=== PATIENT | male | born 1970 | race Caucasian/White ===

== ENCOUNTER 2021-08-30 04:19 | Emergency (ER) | payer MEDICARE, MEDICAID, SELFPAY ==
--- NOTE | ~2021-08-30 | CT_ITS ---
EXAMINATION: CT HEAD WITHOUT CONTRAST CLINICAL INFORMATION: Head injury. COMPARISON: None TECHNIQUE: Contiguous axial imaging was performed from the skull base to vertex without intravenous administration of contrast. This CT examination was performed using dose optimization techniques as appropriate, variously including the following: *Automated exposure control *Adjustment of mA and/or kV according to patient size (this includes techniques or standardized protocols for targeted exams where dose is matched to indication/reason for exam; i.e. extremities or head) *Use of iterative reconstruction technique DLP: 620 mGy-cm FINDINGS: There is no evidence of acute intracranial hemorrhage or territorial infarction. No abnormal mass effect or midline shift is seen. [place] to white matter differentiation is well preserved. No extra-axial fluid collections are identified. The ventricles are normal in size. There is no abnormal attenuation within the brain parenchyma. The osseous structures and soft tissues are normal. The mastoid air cells and visualized portions of the paranasal sinuses are well aerated. CT/CT head/brain wo con IMPRESSION: No acute intracranial pathology.
[2021-08-30 04:49] VITALS: BP 127/72; BP 140/70; PULSE 115; PULSE 90; RESP 17; TEMP 36.6; O2SAT 99; BMI 23.6
--- NOTE | 2021-08-30 05:00 | ED_ITS ---
HPI - Overdose General Chief Complaint: Overdose Stated Complaint: DRUG ABUSE Time Seen by Provider: 08/30/21 04:59 Source: patient and EMS Mode of arrival: EMS Limitations: no limitations History of Present Illness HPI Narrative: 51-year-old male came in by ambulance for evaluation of possible overdose. 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 But patient confirmed that he did not lose any consciousness, and he did not have seizure activity. when patient fell hit his mouth causing bleeding from the lower front teeth but no tongue or lip bite. Related Data Allergies Allergy/AdvReac Type Severity Reaction Status Date / Time No Known Allergies Allergy Unverified 05/12/20 14:50 Review of Systems Review of Systems: All other systems are reviewed and are negative Constitutional: Reports as per HPI and Reports no additional constitutional complaints Eyes: Reports as per HPI and Reports no additional eye complaints Reports system reviewed and no additional complaints, except as documented Cardiovascular: Reports as per HPI and Reports no additional cardiovascular complaints Respiratory: Reports as per HPI and Reports no additional respiratory complaints Gastrointestinal: Reports as per HPI and Reports no additional gastrointestinal complaints Genitourinary: Reports no additional female genitourinary complaints Musculoskeletal: Reports no additional musculoskeletal complaints Skin/Breast: Reports system reviewed and no additional complaints, except as docu Psychiatric: Reports no additional psychiatric complaints Endocrine: Reports no additional endocrine complaints Hematologic/Lymphatic: Reports no additional hematologic/lymphatic complaints Allergic/Immunologic: Reports no additional allergic/immunologic complaints Reports system reviewed and no additional complaints, except as documented and Reports Abnormal speech present [facility] Social History Social History Advance Directives: No Physical Exam Vital Signs: Vital Signs: Last Vital Signs Temp 97.8 F 08/30/21 04:49 Pulse 73 08/30/21 06:11 Resp 16 08/30/21 06:11 BP 105/55 L 08/30/21 06:11 Pulse Ox 95 08/30/21 06:11 BMI result Body Mass Index 23.6 Vital signs have been reviewed as appeared to be correct. Blood pressure normal. Heart rate normal. Respiration rate normal. Temperature normal. Oxygen saturation normal. Appearance: Alert. Oriented X3. No acute distress. Head: Normal external exam. Normocephalic. Atraumatic. No Cook signs noted. No raccoon eyes noted Eyes: PERRLA. EOMI. Conjunctiva and sclera normal. Eyelids normal. ENT: TM's Normal. Pharynx normal. Uvula midline. Moist mucous membranes. No trismus noted. No drooling noted. No muffled voice noted. Neck: Normal inspection. Neck supple. FROM. No adenopathy. Thyroid Normal. No meningeal signs. No neck mass noted. CVS: Normal heart rate and rhythm. Heart sound normal. No murmurs noted. Pulses normal throughout. Respiratory: No respiratory distress. Painless inspiration. Breath sounds normal. No wheezes/rales/rhonchi noted. Chest nontender. No accessory muscle usage noted or decreased air movement noted. Abdomen: Soft and nontender. Bowel sounds normal in all 4 quadrants. No distention noted. No organomegaly noted. No visible injury noted. Back: No CVA tenderness. Full range of motion noted. Skin: Skin warm and dry. Normal skin color. Normal skin turgor. No rashes/lesions/lacerations noted. Extremities: No lower extremity edema. Extremities exhibit normal range of motion. Extremities nontender. Neuro: Oriented X 3. Cranial nerve exam: II-XII are grossly intact No motor deficit. No sensory deficit. Reflexes normal. Course Course Course Narrative: Assessment and plan. 51-year-old male with history of IV drug abuse, patient admitted to use only cocaine, no SI/no HI. urine drug screen also was positive for fentanyl which patient is not aware of it. CT of the head is unremarkable. Patient now is awake and alert and oriented. Awaiting for the care team to talk to the patient then will discharge. MDM - Overdose Lab Data Attestation: I reviewed the patient's lab results. Labs: Lab Results 08/30/21 08/30/21 Range/Units 04:49 05:33 Urine Opiates Screen Not Detected (Not Detect) Urine Fentanyl Screen POSITIVE H (Not Detect) Ur Barbiturates Screen Not Detected (Not Detect) Ur Phencyclidine Scrn Not Detected (Not Detect) Ur Amphetamines Screen Not Detected (Not Detect) U Benzodiazepines Scrn POSITIVE H (Not Detect) Urine Cocaine Screen POSITIVE H (Not Detect) U Marijuana (THC) Screen POSITIVE H (Not Detect) COVID-19 (MALIHA) Negative (Negative) COVID-19 Clin Com See Note Imaging Data CT scan - head: Attestation: I personally reviewed and interpreted this imaging study as follows: Radiologist's impression: No acute intracranial pathology. Discharge Plan Discharge Clinical Impression: Drug overdose Instructions: Adult Overdose (ED) Referrals: Physician,Unknown J [Primary Care Provider] - 2 days
[2021-08-30 05:17] LABS: COVID-19 Test Negative (Negative)
[2021-08-30 05:54] LABS: Amphetamine Screen Urine Not Detected (Not Detect); Barbiturates, Urine Not Detected (Not Detect); Benzodiazepines Screen Urine POSITIVE (Not Detect); Cannabinoid Screen Urine POSITIVE (Not Detect); Cocaine Screen Urine POSITIVE (Not Detect); Fentanyl, urine POSITIVE (Not Detect); Opiate Screen Urine Not Detected (Not Detect); Phencyclidine Screen Urine Not Detected (Not Detect)
[2021-08-30 06:00] VITALS: RESP 16; O2SAT 96
[2021-08-30 06:11] VITALS: BP 105/55; PULSE 73; RESP 16; O2SAT 95
--- NOTE | 2021-08-30 08:43 | MHC.RECOVSUP ---
Recovery Support note: Patient is a 51 year old Taiwanese speaking male who presented to [facility] ED after an accidental overdose while using cocaine. Patient was sleeping when this marketing writer entered the room however awoke when this marketing writer spoke his name. Patient reports he was using cocaine and that he did not know there was fentanyl present. Discussed harm reduction techniques and the prevalence of fentanyl in cocaine supplies. Patient acknowledged and reports he typically uses cocaine 1-2 times a week however he plans to stop entirely after this event. Patient reports he is currently on 146mg of methadone. Patient denies alcohol or additional drug use however reports he uses marijuana occasionally. Discussed with patient how he is at a greater risk of overdose due to being on methadone and that the safest plan is to avoid street drugs entirely. Patient acknowledged. This marketing writer offered patient SUDE assessment and additional recovery resources. Patient declined stating he has access to supports through his methadone clinic. Encouraged patient to inform staff if he has additional questions or concerns. Discussed case with patient's RN and ED provider.
[2021-08-30 09:05] VITALS: BP 128/77; PULSE 77; RESP 19; O2SAT 98
== END 2021-08-30 09:08 | disposition home or self-care (01) ==
PROVIDERS: Emergency Provider Emergency Medicine
DX: T40.5X1A Poisoning by cocaine, accidental (unintentional), initial encounter (principal); F11.20 Opioid dependence, uncomplicated; Y92.9 Unspecified place or not applicable; Z20.822 Contact with and (suspected) exposure to COVID-19
CPT/HCPCS: 70450; 80307; 87635; 99284

== ENCOUNTER 2023-02-28 22:36 | Observation (INO) | payer MEDICARE, MEDICAID, SELFPAY ==
[2023-02-28 22:44] VITALS: BP 105/58; PULSE 72; RESP 18; TEMP 36.8; O2SAT 95; BMI 21.8
[2023-02-28 23:58] LABS: Alanine Aminotransferase 82 U/L (0-40); Albumin Level 3.3 g/dL (3.5-5.0); Alkaline Phosphatase 79 U/L (39-117); Anion Gap 12 (12-20); Aspartate Amino Transferase 91 U/L (5-37); Bilirubin Total 0.4 mg/dL (0.0-1.0); Blood Urea Nitrogen 12 mg/dL (9-16); Calcium 9.1 mg/dL (8.4-10.2); Carbon Dioxide 28 mmol/L (22-29); Chloride 102 mmol/L (96-108); Creatinine Clr Calc Pharmacy 97.8; Estimated Glomerular Filt Rate > 60; Glucose Random 119 mg/dL (60-115); Potassium 4.1 mmol/L (3.3-5.1); Sodium 138 mmol/L (135-145); Total Protein 7.3 g/dL (6.5-8.0)
[2023-03-01] VITALS (12 sets, daily range): BP systolic 88–120; BP diastolic 43–58; PULSE 44–69; RESP 12–20; TEMP 36.3–37.3; O2SAT 94–100
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
--- NOTE | 2023-03-01 01:17 | PC.NURSE ---
Pt medicated per oct. teofilo.
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
--- NOTE | 2023-03-01 03:37 | PC.NURSE ---
Pt resting comfortably. Pt medicated per oct. wctm.
[2023-03-01 04:50] LABS: MANUAL DIFF FLAG NO
[2023-03-01 04:53] LABS: Basophils Absolute Auto 0.1 X10*3/uL (0.0-0.2); Basophils Percent Auto 0.8 % (0-2); Eosinophils Absolute Auto 0.3 X10*3/uL (0.0-0.4); Eosinophils Percent Auto 5.1 % (0-4); Hematocrit 36.2 % (42.0-52.0); Hemoglobin 11.8 g/dl (14.0-18.0); Imm Gran Abs Auto 0.02 X10*3/uL (0.00-0.03); Imm Gran Pct Auto 0.3 % (0.0-0.4); Lymphocytes Percent Auto 16.7 % (20-40); Mean Corpuscular HGB Conc 32.6 g/dl (31.0-36.0); Mean Corpuscular Hemoglobin 30.3 pg (27.0-33.0); Mean Corpuscular Volume 92.8 fL (80.0-98.0); Mean Platelet Volume 10.3 fL (9.4-12.4); Monocytes Absolute Auto 0.7 X10*3/uL (0.1-1.2); Monocytes Percent Auto 12.5 % (2-11); Neutrophils Absolute Auto 3.8 x10*3/uL (2.0-8.3); Neutrophils Percent Auto 64.6 % (45-73); Platelet Count 184 X10*3/uL (160-400); White Blood Count 5.9 X10*3/uL (4.8-10.8)
[2023-03-01 05:19] LABS: Anion Gap 13 (12-20); Blood Urea Nitrogen 9 mg/dL (9-16); Calcium 7.9 mg/dL (8.4-10.2); Carbon Dioxide 20 mmol/L (22-29); Chloride 109 mmol/L (96-108); Creatinine Clr Calc Pharmacy 123.4; Estimated Glomerular Filt Rate > 60; Glucose Random 82 mg/dL (60-115); Potassium 3.7 mmol/L (3.3-5.1); Sodium 138 mmol/L (135-145)
--- NOTE | 2023-03-01 07:40 | MHC.EDTECH ---
EKG Done 724. Za Schmid RN sent a photo to Hospitalist [employer]
--- NOTE | 2023-03-01 07:44 | PHA.PROG ---
Admission Date/Time: March 01, 2023 02:24 Indication: Cellulitis/Abcess, IVDU Weight in k.9 kg Adjusted body weight in K kg [place] body weight in Kg: Obesity Dosing Indication % IBW: Serum Creatinine - Last 168 Hours 02/28/23 03/01/23 23:28 04:45 Creatinine 0.82 0.65 Estimated CrCl and GFR - Last 168 Hours 02/28/23 03/01/23 23:28 04:45 Estim Creat Clear Calc 97.8 123.4 Estimated GFR > 60 > 60 Vancomycin Loading Dose: 1500 mg Current Vancomycin Dosing Regimen: 1250 mg Q12H Date and Time for next Vancomycin Level to be drawn: 03/02 @ 1400 Pharmacist Comments on Vancomycin Plan: Patient receive load dose in the ER on 03/01 @ 0336. Maintenance dose vancomycin 1250 mg Q12H is scheduled to start 03/01 @ 1600. Expected AUC is 544 with a trough of 15.6 Level is scheduled for prior to the 4th dose Pharmacy will monitor renal function daily. Reva Soto, JoannD Vancomycin dosing will take advantage of [employer] as a clinical decision support tool that uses Bayesian modeling to calculate individual patient's pharmacokinetic parameters and forecast the patient's drug concentration time course with the target goal AUC 24 range of 400 - 600 mg/L/hr.
--- NOTE | 2023-03-01 07:46 | PC.NURSE ---
Provider notified due to bradycardia/low BP. EKG order/Straight cath order for urine. EKG complete, sent to provider - Urine obtained. IVMF running at 125ml/hr. Pt A&Ox4, VSS. RR even and unlabored bilaterally on RA.
--- NOTE | 2023-03-01 07:57 | PHA.MEDREC ---
Pharmacy Consult ? Medication Reconciliation Pharmacy has completed the medication reconciliation.
--- NOTE | 2023-03-01 08:39 | MHC.CM.PN ---
Attempted to meet with patient in regards to discharge planning. Tried calling patient's name multiple times. Patient currently sleeping. No family present. Will attempt to meet again. Continue to monitor for d/c needs.
--- NOTE | 2023-03-01 09:54 | MHC.RECOVRN ---
This short story writer met with patient after receiving addiction consult. Pt resting comfortably, awake to verbal command. This short story writer reviewed Addiction/Recovery role, able to order medications to help manage withdrawal and comfort. Pt verbalized understanding. Pt states no withdrawal at this time, Addiction/Recovery to check back in with pt.
--- NOTE | 2023-03-01 09:55 | HE.PHANOTE ---
Re: methadone verification last dose 63 mg given 02/28/23 @0748 at [facility] verified by Za Duval RN
--- NOTE | 2023-03-01 10:39 | PM.EVENT ---
Event Note Date of Service: 03/01/23 Event Note: 52 yo male with Right thumb abscess -Keep NPO -plan to take to OR this afternoon for I&D with Dr hester -formal consult note to follow Time Spent With Patient Time: Total time managing care of this patient today ____ minutes.
--- NOTE | 2023-03-01 10:58 | PC.NURSE ---
assumed care of pt when he arrived at ED Overflow, 1050am. Pt jonel to 43, Provider aware of low HR. Bolus of NS running, almost finished, BP 104/43. NS 125ml/hr also infusing. Pt resting, reporting 8/10 pain in hand. Right thumb is red, hand is swollen.
--- NOTE | 2023-03-01 12:01 | PC.NURSE ---
orthopedics met with pt. Plan is to go to OR at approx 33:15.
--- NOTE | 2023-03-01 12:13 | PM.CNOR ---
History of Present Illness HPI Consult date: 03/01/23 Chief complaint: Thumb swelling Narrative: 52 yo male who presented to the ED with worsening Right thumb pain and swelling x 2 days. He states he wacked his thumb on the side of his metal mobile home. He denies injury prior to that. He denies IVDU into the hand or thumb. Last use of heroin/cocaine was prior to arrival. While in the ED, CT scan was obtained which was significant for abscess of the thumb. He was admitted to the medical service and orthopedics was consulted for further recommendations. Review of Systems Review of Systems: per [facility] Past Medical History Medical History (Updated 03/01/23 @ 02:37 by Dorothy Gilman MD) Drug use disorder Social History Social History Patient Tobacco Use Status: Current someday Tobacco user Smoked in Last 30 Days: Yes Use of substances other than those prescribed or required for medical reasons: No Advance Directives: No Advance Directives Information Provided: Yes Meds Allergies Allergy/AdvReac Type Severity Reaction Status Date / Time No Known Allergies Allergy Verified 02/28/23 22:43 Active Medications: Current Medications Acetaminophen (Acetaminophen 325 Mg Tablet) 650 mg PO Q6H PRN PRN Reason: Pain, Mild (Pain Scale 1-3) Vancomycin HCl 1,250 mg/ (Sodium Chloride) 250 mls @ 166.667 mls/hr IV Q12H [facility] Sodium Chloride (Ns) 1,000 mls @ 125 mls/hr IVCONT .Q8H [facility] Last Admin: 03/01/23 07:38 Dose: 125 mls/hr Melatonin (Melatonin 3 Mg Tablet) 6 mg PO BEDTIME PRN PRN Reason: Insomnia Ondansetron HCl (Ondansetron Hcl 4 Mg/2 Ml Vial) 4 mg IVPUSH Q8H PRN PRN Reason: Nausea and Vomiting Oxycodone HCl (Oxycodone Hcl Immed Release 5 Mg Tablet) 5 mg PO Q4H PRN PRN Reason: Pain, Moderate(Pain Scale 4-6) Pharmacy Consult (Consult Rx Vancomycin Dosing) 1 each MISCELLANE DAILY PRN PRN Reason: Consult order Pharmacy Consult (Consult Rx Perform Med Rec) 1 each MISCELLANE ONCE PRN PRN Reason: Consult order Pharmacy Consult (Consult Rx Perform Med Rec) 1 each MISCELLANE ONCE PRN PRN Reason: Consult order Sodium Chloride (0.9 % Sodium Chloride Flush 3 Ml Syringe) 3 ml IVFLUSH QSHIFT [facility] Last Admin: 03/01/23 07:38 Dose: 3 ml Home Medications Medication Instructions Recorded Confirmed Last Taken Type methadone 10 mg/mL oral 63 mg PO DAILY 03/01/23 03/01/23 02/28/23 07:48 History concentrate (Methadone Intensol) Physical Exam Vital Signs: Vital Signs: Last Vital Signs Temp 98.1 F 03/01/23 10:57 Pulse 44 L 03/01/23 10:57 Resp 16 03/01/23 10:57 BP 104/43 L 03/01/23 10:57 Pulse Ox 97 03/01/23 10:57 O2 Del Method Room Air 03/01/23 10:57 BMI result Body Mass Index 21.8 Const: General: cooperative and no acute distress Orientation/consciousness: patient oriented x3 Resp: Effort & Inspection: normal respiratory effort and able to speak in complete sentences Cardio: Peripheral pulses: Peripheral pulses 2+ throughout Neuro: General: patient oriented x3 Extrem: Other: Right tumb ulceration type abscess over the MCP jonit of the thumb. He is able to activate flexion and extension but has significant discomfort. No pain or swelling along the palmar aspect or in the thenar space. No pain with CMC compression. Results Labs 03/01/23 04:45 03/01/23 04:45 Labs: Abnormal lab results 02/28/23 02/28/23 03/01/23 Range/Units 23:28 23:28 04:45 RBC 4.09 L 3.90 L (4.60-5.80) X10*6/uL Hgb 12.2 L 11.8 L (14.0-18.0) g/dl Hct 36.2 L 36.2 L (42.0-52.0) % MPV 8.9 L (9.4-12.4) fL Lymph % (Auto) 16.8 L 16.7 L (20-40) % [place] % (Auto) 13.4 H 12.5 H (2-11) % Eos % (Auto) 6.1 H 5.1 H (0-4) % Lymph # (Auto) 1.0 L (1.2-4.9) X10*3/uL Eos # (Auto) 0.5 H (0.0-0.4) X10*3/uL Chloride (96-108) mmol/L Carbon Dioxide (22-29) mmol/L Random Glucose 119 H (60-115) mg/dL Calcium (8.4-10.2) mg/dL AST 91 H (5-37) U/L ALT 82 H (0-40) U/L Albumin 3.3 L (3.5-5.0) g/dL Urine Opiates Screen (Not Detect) Urine Fentanyl Screen (Not Detect) U Benzodiazepines Scrn (Not Detect) Urine Cocaine Screen (Not Detect) U Marijuana (THC) Screen (Not Detect) 03/01/23 03/01/23 Range/Units 04:45 07:35 RBC (4.60-5.80) X10*6/uL Hgb (14.0-18.0) g/dl Hct (42.0-52.0) % MPV (9.4-12.4) fL Lymph % (Auto) (20-40) % [place] % (Auto) (2-11) % Eos % (Auto) (0-4) % Lymph # (Auto) (1.2-4.9) X10*3/uL Eos # (Auto) (0.0-0.4) X10*3/uL Chloride 109 H (96-108) mmol/L Carbon Dioxide 20 L (22-29) mmol/L Random Glucose (60-115) mg/dL Calcium 7.9 L D (8.4-10.2) mg/dL AST (5-37) U/L ALT (0-40) U/L Albumin (3.5-5.0) g/dL Urine Opiates Screen POSITIVE H (Not Detect) Urine Fentanyl Screen POSITIVE H (Not Detect) U Benzodiazepines Scrn POSITIVE H (Not Detect) Urine Cocaine Screen POSITIVE H (Not Detect) U Marijuana (THC) Screen POSITIVE H (Not Detect) H & H 02/28/23 03/01/23 Range/Units 23:28 04:45 Hgb 12.2 L 11.8 L (14.0-18.0) g/dl Hct 36.2 L 36.2 L (42.0-52.0) % All other labs normal. Diagnostic results Wrist/Hand CT: report reviewed (CT hand RT w IV con IMPRESSION: * There is a 2.2 x 1.9 x 1.9 cm abscess lateral to the distal first metacarpal extending into the first metacarpophalangeal joint. This is concerning for septic arthritis. * No CT evidence of osteomyelitis at this time. * The extensor pollicis longus and brevis ten) and image reviewed Assessment and Plan (1) Cellulitis of right thumb: Status: Acute (2) Abscess of right thumb: Status: Acute Plan Case was Discussed with Dr Grewal and the extent of the injury was explained to the patient today. The recommendation is to take him to the OR for I&D right thumb. He did test positive for Cocaine while in the ED, so we will have to determine if this can be done under local or post pone the case until he does not test positive for cocaine so we can proceed under general anesthesia. I did explain the risk, benefits and alternative of the procedure to the patient. Risk including cardiac complications with cocaine and general anesthesia, risk of ongoing infection, pain, stiffness , nerve or tissue/tendon injury. He does understand all this and would like to proceed with I&D RIght thumb accordingly . Time Spent With Patient Time: Total time managing care of this patient today ____ minutes. Procedures Date of Service Date of Service: 03/01/23
--- NOTE | 2023-03-01 13:10 | PC.NURSE ---
report given to short stay, pt resting, no distress noted, vitals remain consistent- pressure soft, pt jonel in mid 40s. NS cont to infuse 125ml/hr
--- NOTE | 2023-03-01 14:21 | HO.PM.IMPN ---
Subjective Subjective Date of Service: 03/01/23 Interval History: seen and examined this morning follow up for right hand infection denies sob, palpitations, chest pain, sob, dizziness reporting right hand pain, denies fever Review of Systems Review of Systems: Yes all other systems are reviewed and are negative Constitutional Constitutional: Denies chills and Denies fever(s) ENT Ears, Nose, Mouth, and Throat: Denies dizziness Cardiovascular Cardiovascular: Denies chest pain, Denies palpitations and Denies dyspnea Respiratory Respiratory: Denies cough and Denies dyspnea Gastrointestinal Gastrointestinal: Denies abdominal pain, Denies nausea and Denies vomiting Neurologic Neurologic: Denies dizziness Endocrine Endocrine: Denies palpitations Physical Exam Vital Signs: Vital Signs: Last Vital Signs Temp 98 F 03/01/23 13:08 Pulse 46 L 03/01/23 13:08 Resp 15 03/01/23 13:08 BP 96/55 L 03/01/23 13:08 Pulse Ox 98 03/01/23 13:08 O2 Del Method Room Air 03/01/23 13:08 BMI result Body Mass Index 21.8 Const: General: cooperative, comfortable, no acute distress, alert and awake Nutritional Appearance: thin Orientation/consciousness: patient oriented x3 Resp: Effort & Inspection: normal respiratory effort, able to speak in complete sentences, no respiratory distress and no use of accessory muscles Auscultation: clear to auscultation bilaterally Cardio: Rate: bradycardic Heart sounds: S1 normal heart sound present and S2 normal heart sound present GI: Inspection: No distended Palpation (GI): Soft to palpation and nontender Skin: Other: right thumb, warm, tender to palpation, limited ROM Neuro: General: patient oriented x3, moves all extremities and CN's II-XI intact bilaterally Extrem: General: Yes no pedal edema Objective Data Active Medications Acetaminophen (Acetaminophen 325 Mg Tablet) 650 mg PO Q6H PRN PRN Reason: Pain, Mild (Pain Scale 1-3) Vancomycin HCl 1,250 mg/ (Sodium Chloride) 250 mls @ 166.667 mls/hr IV Q12H [facility] Sodium Chloride (Ns) 1,000 mls @ 125 mls/hr IVCONT .Q8H [facility] Last Admin: 03/01/23 07:38 Dose: 125 mls/hr Documented By: CHNUG Melatonin (Melatonin 3 Mg Tablet) 6 mg PO BEDTIME PRN PRN Reason: Insomnia Ondansetron HCl (Ondansetron Hcl 4 Mg/2 Ml Vial) 4 mg IVPUSH Q8H PRN PRN Reason: Nausea and Vomiting Oxycodone HCl (Oxycodone Hcl Immed Release 5 Mg Tablet) 5 mg PO Q4H PRN PRN Reason: Pain, Moderate(Pain Scale 4-6) Pharmacy Consult (Consult Rx Vancomycin Dosing) 1 each MISCELLANE DAILY PRN PRN Reason: Consult order Pharmacy Consult (Consult Rx Perform Med Rec) 1 each MISCELLANE ONCE PRN PRN Reason: Consult order Pharmacy Consult (Consult Rx Perform Med Rec) 1 each MISCELLANE ONCE PRN PRN Reason: Consult order Sodium Chloride (0.9 % Sodium Chloride Flush 3 Ml Syringe) 3 ml IVFLUSH QSHIFT [facility] Last Admin: 03/01/23 14:16 Dose: Not Given Documented By: CHELITA Non-Admin Reason: See Note Labs 03/01/23 04:45 03/01/23 04:45 Labs: Laboratory Results - last 24 hr 02/28/23 02/28/23 03/01/23 23:28 23:28 00:42 MCV 88.5 MCH 29.8 MCHC 33.7 RDW 12.6 Plt Count 238 MPV 8.9 L Immature Gran % (Auto) 0.4 Neut % (Auto) 62.6 Lymph % (Auto) 16.8 L [place] % (Auto) 13.4 H Eos % (Auto) 6.1 H Baso % (Auto) 0.7 Lymph # (Auto) 1.4 [place] # (Auto) 1.1 Eos # (Auto) 0.5 H Baso # (Auto) 0.1 Abs Immat Gran (auto) 0.03 Absolute Neuts (auto) 5.1 Absolute Nucleated RBC 0.000 Nucleated RBC % (auto) 0.0 Anion Gap 12 Estim Creat Clear Calc 97.8 Estimated GFR > 60 Random Glucose 119 H Lactic Acid 1.7 Calcium 9.1 Total Bilirubin 0.4 AST 91 H ALT 82 H Alkaline Phosphatase 79 Total Protein 7.3 Albumin 3.3 L Urine Opiates Screen Urine Fentanyl Screen Ur Barbiturates Screen Ur Phencyclidine Scrn Ur Amphetamines Screen U Benzodiazepines Scrn Urine Cocaine Screen U Marijuana (THC) Screen 03/01/23 03/01/23 03/01/23 04:45 04:45 07:35 MCV 92.8 MCH 30.3 MCHC 32.6 RDW 13.0 Plt Count 184 MPV 10.3 Immature Gran % (Auto) 0.3 Neut % (Auto) 64.6 Lymph % (Auto) 16.7 L [place] % (Auto) 12.5 H Eos % (Auto) 5.1 H Baso % (Auto) 0.8 Lymph # (Auto) 1.0 L [place] # (Auto) 0.7 Eos # (Auto) 0.3 Baso # (Auto) 0.1 Abs Immat Gran (auto) 0.02 Absolute Neuts (auto) 3.8 Absolute Nucleated RBC 0.000 Nucleated RBC % (auto) 0.0 Anion Gap 13 Estim Creat Clear Calc 123.4 Estimated GFR > 60 Random Glucose 82 Lactic Acid Calcium 7.9 L D Total Bilirubin AST ALT Alkaline Phosphatase Total Protein Albumin Urine Opiates Screen POSITIVE H Urine Fentanyl Screen POSITIVE H Ur Barbiturates Screen Not Detected Ur Phencyclidine Scrn Not Detected Ur Amphetamines Screen Not Detected U Benzodiazepines Scrn POSITIVE H Urine Cocaine Screen POSITIVE H U Marijuana (THC) Screen POSITIVE H Assessment and Plan (1) Abscess of right thumb: Status: Acute Plan This is a 52-year-old male with history of IV drug use disorder presents to the emergency department evaluation of thumb pain and swelling. Septic arthritis/abscess of right thumb does not meet sirs criteria. LA wnl at 1.7 continue IV vancomycin seen by ortho - plan to go to OR today for I&D/washout blood cultures pending pain control Polysubstance abuse Tox screen positive for opiates, fentanyl, benzos, cocaine, marijuana not displaying anything withdrawal symptoms at this time addiction medicine consult hold methadone for bradycardia Bradycardia HR in 40s EKG sinus jonel may be secondary to methadone, not on any other rate lowering medication asymptomatic monitor on telemetry Hypotension does not meet sirs criteria continue IVF monitor BP closely elevated LFTs, mild no abdominal pain trend LFTs normocytic anemia H/H stable and above transfusion threshold follow CBC DVT prophylaxis: SCDs, consider chemoprophylaxis after surgery Full code attending - dr. yeh patient requires ongoing inpatient stay for IV abx, close monitoring of blood pressure Time Spent With Patient Time: Total time managing care of this patient today ____ minutes. Quality Stroke Does the patient have a stroke diagnosis?: No VTE Prior VTE?: No VTE Risk Level:: Medical - moderate - high VTE Device Contraindication: N/A - Device Ordered VTE Drug Contraindication: Treatment Not Indicated
--- NOTE | 2023-03-01 15:21 | PC.NURSE ---
1st bag of NS @125ml/hr still infusing, approx 300ml remain. Will let it cont to run and not hang second bag (ordered for 3:15). Will call pharm to retime once ready to hang second liter
--- NOTE | 2023-03-01 15:43 | PC.NURSE ---
pt picked up by recyclable materials sorter
--- NOTE | 2023-03-01 16:35 | MHC.SHP ---
Pre-Procedural Eval Section A Date of Service: 03/01/23 The patient is an INPATIENT: Yes Changes since office visit: No Cold of Flu in the past 2 weeks, No New Medical Problems, No Changes in Medication and No Patient answered all questions The History & Physical has been completed within 30 days and I have reviewed it.: Yes Section B Chief Complaint: Thumb swelling infection Allergies: Allergies Allergy/AdvReac Type Severity Reaction Status Date / Time No Known Allergies Allergy Verified 02/28/23 22:43 Plan I have reviewed the history and physical and performed a pertinent physical examination on my patient. No changes have occurred unless specified. Time Spent With Patient Time: Total time managing care of this patient today ____ minutes.
--- NOTE | 2023-03-01 16:36 | W.PM.OPN ---
Operative Note Operative Note Date of Service: 03/01/23 Narrative: Operative Note Preop diagnosis: 1. Right dorsal hand infection Postop diagnosis: same Procedure: 1. I and D right dorsal hand infection Surgeon: Gayle Grewal MD Anesthesia: Superficial radial nerve block at the wrist using 1% lidocaine with epinephrine Findings: Copious creamy purulent drainage within abscess over right thumb MCP joint. EBL: Less than 5 mL Tourniquet time: None Specimens: Cultures from abscess Drains: Iodoform drains x2 Complications: None Disposition: Brought to recovery room in stable condition Plan: Admitted back to floor. Continue IV antibiotics Check cultures and adjust antibiotics accordingly Pull drain and dressing change tomorrow Consider dropping a card at the OR for repeat I and D Saturday if not exhibiting sufficient improvement Indications: The patient is 52 years old, with an abscess over the dorsal aspect of his right thumb MCP joint in a patient with an IV drug use history . The risks and benefits of operative treatment including but not limited to risk of damage to blood vessels, nerves, tendons, infection, persistent pain, persistent symptoms, recurrence or possible need for additional surgery were discussed with the patient and the patient wishes to proceed with surgery. Procedure: Once consent was obtained a regional block of the superficial radial nerve at the wrist was performed in the preop area using a combination of 1% lidocaine with epinephrine. The patient was then brought back to the operating suite and placed on the operative table in supine position. A tourniquet was applied to the proximal aspect of the right upper extremity and the limb was prepped and draped in a standard surgical fashion. Once assured that we had a good block, I made a 2.5 cm longitudinal incision over the apex of the abscess which was over the dorsal aspect of the right thumb MCP joint. The incision was made through the skin to the subcutaneous tissues. We then had copious creamy purulent drainage. I took cultures of this drainage. I used tenotomy scissors to open down into the abscess cavity which went freely almost to the dorsal aspect of the IP joint distally and almost to the CMC joint proximally. This was then copiously irrigated with normal saline. He did still have some tenderness to squeezing of the inflamed tissues, but our superficial radial nerve block appeared to work well for the incision. He tolerated this well. I also checked his thumb with axial loading and he had no pain with axial loading specifically of the MCP joint. I therefore think it is unlikely that he had a septic MCP joint. This abscess is likely within the subcutaneous tissues. Once satisfied with our I and D the wound was again copiously irrigated with normal saline and hemostasis was obtained with a brief period of local pressure. I placed 2 x quarter-inch strips of iodoform gauze into the abscess cavity to facilitate drainage. A sterile dressing was applied. The patient appears to have tolerated the procedure well and with no complications. All digits were well vascularized at the conclusion of the case.
--- NOTE | 2023-03-01 17:14 | PM.EVENT ---
Event Note Date of Service: 03/01/23 Event Note: Addiction consult placed for patient with [facility] Chart reviewed Seen by grain sacker earlier in the day, denied any symptoms of withdrawal and appeared comfortable. Methadone verified at 63mg QD with last dose administered 02/28/23. Dose held today secondary to bradycardia. Discussed with hospitalist--plan for oxycodone grain sacker to check in over the weekend. Time Spent With Patient Time: Total time managing care of this patient today ____ minutes.
[2023-03-02 03:39] VITALS: BP 102/62; PULSE 55; RESP 18; TEMP 36.6; O2SAT 96
[2023-03-02 05:53] LABS: MANUAL DIFF FLAG NO
[2023-03-02 06:01] LABS: Basophils Absolute Auto 0.1 X10*3/uL (0.0-0.2); Eosinophils Absolute Auto 0.5 X10*3/uL (0.0-0.4); Eosinophils Percent Auto 6.7 % (0-4); Hematocrit 36.7 % (42.0-52.0); Hemoglobin 11.9 g/dl (14.0-18.0); Imm Gran Abs Auto 0.03 X10*3/uL (0.00-0.03); Imm Gran Pct Auto 0.4 % (0.0-0.4); Lymphocytes Absolute Auto 1.5 X10*3/uL (1.2-4.9); Lymphocytes Percent Auto 22.1 % (20-40); Mean Corpuscular HGB Conc 32.4 g/dl (31.0-36.0); Mean Corpuscular Hemoglobin 29.3 pg (27.0-33.0); Mean Corpuscular Volume 90.4 fL (80.0-98.0); Mean Platelet Volume 9.6 fL (9.4-12.4); Monocytes Percent Auto 15.1 % (2-11); Neutrophils Absolute Auto 3.7 x10*3/uL (2.0-8.3); Neutrophils Percent Auto 54.7 % (45-73); Platelet Count 219 X10*3/uL (160-400); Red Blood Count 4.06 X10*6/uL (4.60-5.80); Red Cell Distribution Width 13.2 % (11.0-16.0); White Blood Count 6.8 X10*3/uL (4.8-10.8)
[2023-03-02 06:23] LABS: Alanine Aminotransferase 62 U/L (0-40); Albumin Level 2.5 g/dL (3.5-5.0); Alkaline Phosphatase 72 U/L (39-117); Anion Gap 10 (12-20); Aspartate Amino Transferase 77 U/L (5-37); Bilirubin Direct < 0.2 mg/dL (0.0-0.5); Bilirubin Total 0.2 mg/dL (0.0-1.0); Blood Urea Nitrogen 6 mg/dL (9-16); Calcium 8.6 mg/dL (8.4-10.2); Carbon Dioxide 25 mmol/L (22-29); Chloride 110 mmol/L (96-108); Creatinine Clr Calc Pharmacy 125.3; Estimated Glomerular Filt Rate > 60; Glucose Random 89 mg/dL (60-115); Sodium 141 mmol/L (135-145); Total Protein 5.7 g/dL (6.5-8.0)
[2023-03-02 07:28] VITALS: BP 124/66; PULSE 55; RESP 18; TEMP 36.7; O2SAT 97
--- NOTE | 2023-03-02 10:23 | PM.PNORT ---
Subjective Subjective Date of Service: 03/02/23 Interval history: POD 1 s/p I&D right thumb no overnight events resting in bed, no concerns Physical Exam Vital Signs: Vital Signs: Last Vital Signs Temp 98.1 F 03/02/23 07:28 Pulse 55 03/02/23 07:28 Resp 18 03/02/23 07:28 BP 124/66 03/02/23 07:28 Pulse Ox 97 03/02/23 07:28 O2 Del Method Room Air 03/02/23 07:28 BMI result Body Mass Index 21.8 Const: General: cooperative and no acute distress Orientation/consciousness: patient oriented x3 Resp: Effort & Inspection: normal respiratory effort and able to speak in complete sentences Cardio: Peripheral pulses: Peripheral pulses 2+ throughout Neuro: General: patient oriented x3 Extrem: Other: Right tumb incision over the MCP jonit of the thumb without drainage. He is able to activate flexion and extension but has significant discomfort. No pain or swelling along the palmar aspect or in the thenar space. No pain with CMC compression. Procedures Date of Service Date of Service: 03/02/23 Progress Note: A&P Assessment and plan (1) Abscess of right thumb: Status: Acute Assessment and Plan: Iodoform packing pulled and incision was re-dressed with xeroform and gauze continue IV abx-pending cultures dispo pending final cultures (2) Cellulitis of right thumb: Status: Acute Time Spent With Patient Time: Total time managing care of this patient today ____ minutes. Quality Stroke Does the patient have a stroke diagnosis?: No VTE Prior VTE?: No VTE Risk Level:: Medical - moderate - high VTE Device Contraindication: N/A - Device Ordered VTE Drug Contraindication: Treatment Not Indicated
--- NOTE | 2023-03-02 11:11 | HO.PM.IMPN ---
Subjective Subjective Date of Service: 03/02/23 Interval History: seen and examined this morning follow up for right hand infection denies sob, palpitations, chest pain, sob, dizziness reporting right hand pain, denies fever Review of Systems Review of Systems: Yes all other systems are reviewed and are negative Constitutional Constitutional: Denies chills and Denies fever(s) ENT Ears, Nose, Mouth, and Throat: Denies dizziness Cardiovascular Cardiovascular: Denies chest pain, Denies palpitations and Denies dyspnea Respiratory Respiratory: Denies cough and Denies dyspnea Gastrointestinal Gastrointestinal: Denies abdominal pain, Denies nausea and Denies vomiting Neurologic Neurologic: Denies dizziness Endocrine Endocrine: Denies palpitations Physical Exam Vital Signs: Vital Signs: Last Vital Signs Temp 98.1 F 03/02/23 07:28 Pulse 55 03/02/23 07:28 Resp 18 03/02/23 07:28 BP 124/66 03/02/23 07:28 Pulse Ox 97 03/02/23 07:28 O2 Del Method Room Air 03/02/23 07:28 BMI result Body Mass Index 21.8 Appearing in no acute distress lung sounds are clear to auscultation heart regular rate rhythm, clear S1, S2 positive bowel sounds, abdomen is soft, nontender neuro patient is alert x3, no focal deficits Hand dressing intact, edema noted to fingers Objective Data Active Medications Acetaminophen (Acetaminophen 325 Mg Tablet) 650 mg PO Q6H PRN PRN Reason: Pain, Mild (Pain Scale 1-3) Vancomycin HCl 1,250 mg/ (Sodium Chloride) 250 mls @ 166.667 mls/hr IV Q12H [facility] Last Infusion: 03/02/23 05:00 Dose: 0 mls/hr Documented By: OPAL Sodium Chloride (Ns) 1,000 mls @ 125 mls/hr IVCONT .Q8H [facility] Last Admin: 03/02/23 10:40 Dose: 125 mls/hr Documented By: SALTY Melatonin (Melatonin 3 Mg Tablet) 6 mg PO BEDTIME PRN PRN Reason: Insomnia Methadone HCl (Methadone Hcl 20 Mg/2 Ml Oral.Conc) 63 mg PO DAILY [facility] Last Admin: 03/02/23 08:18 Dose: 63 mg Documented By: SALTY Ondansetron HCl (Ondansetron Hcl 4 Mg/2 Ml Vial) 4 mg IVPUSH Q8H PRN PRN Reason: Nausea and Vomiting Oxycodone HCl (Oxycodone Hcl Immed Release 5 Mg Tablet) 5 mg PO Q4H PRN PRN Reason: Pain, Moderate(Pain Scale 4-6) Pharmacy Consult (Consult Rx Vancomycin Dosing) 1 each MISCELLANE DAILY PRN PRN Reason: Consult order Pharmacy Consult (Consult Rx Perform Med Rec) 1 each MISCELLANE ONCE PRN PRN Reason: Consult order Pharmacy Consult (Consult Rx Perform Med Rec) 1 each MISCELLANE ONCE PRN PRN Reason: Consult order Sodium Chloride (0.9 % Sodium Chloride Flush 3 Ml Syringe) 3 ml IVFLUSH QSHIFT [facility] Last Admin: 03/02/23 07:39 Dose: Not Given Documented By: SALTY Non-Admin Reason: IV Running Labs 03/02/23 05:31 03/02/23 05:31 Labs: Laboratory Results - last 24 hr 03/02/23 03/02/23 05:31 05:31 MCV 90.4 MCH 29.3 MCHC 32.4 RDW 13.2 Plt Count 219 MPV 9.6 Immature Gran % (Auto) 0.4 Neut % (Auto) 54.7 Lymph % (Auto) 22.1 [place] % (Auto) 15.1 H Eos % (Auto) 6.7 H Baso % (Auto) 1.0 Lymph # (Auto) 1.5 [place] # (Auto) 1.0 Eos # (Auto) 0.5 H Baso # (Auto) 0.1 Abs Immat Gran (auto) 0.03 Absolute Neuts (auto) 3.7 Absolute Nucleated RBC 0.000 Nucleated RBC % (auto) 0.0 Anion Gap 10 L Estim Creat Clear Calc 125.3 Estimated GFR > 60 Random Glucose 89 Calcium 8.6 D Total Bilirubin 0.2 Direct Bilirubin < 0.2 AST 77 H ALT 62 H Alkaline Phosphatase 72 Total Protein 5.7 L Albumin 2.5 L Microbiology Microbiology Results: Microbiology 03/01/23 Unknown Gram Stain - Final Thumb Right - Abscess Routine Culture - Preliminary Staphylococcus aureus 03/01/23 01:03 Blood Culture - Preliminary Blood - Venous No growth after 24 hours. 03/01/23 00:42 Blood Culture - Preliminary Blood - Venous No growth after 24 hours. Assessment and Plan (1) Abscess of right thumb: Status: Acute Plan This is a 52-year-old male with history of IV drug use disorder presents to the emergency department evaluation of thumb pain and swelling. Septic arthritis/abscess of right thumb does not meet sirs criteria. continue IV vancomycin seen by ortho>s/p I&D/washout 03/01/23 blood cultures neg after 24 hrs thumb cx staph aureus pain control Polysubstance abuse Tox screen positive for opiates, fentanyl, benzos, cocaine, marijuana not displaying anything withdrawal symptoms at this time addiction medicine consult>oxycodone hold methadone for bradycardia Bradycardia HR in 40s EKG sinus jonel may be secondary to methadone, not on any other rate lowering medication asymptomatic monitor on telemetry Hypotension. Resolved does not meet sirs criteria continue IVF monitor BP closely elevated LFTs, mild no abdominal pain trend LFTs normocytic anemia H/H stable and above transfusion threshold follow CBC DVT prophylaxis: SCDs, consider chemoprophylaxis after surgery Full code attending Dr. loyola patient requires ongoing inpatient stay for IV abx, close monitoring of blood pressure Time Spent With Patient Time: Total time managing care of this patient today ____ minutes. Quality Stroke Does the patient have a stroke diagnosis?: No VTE Prior VTE?: No VTE Risk Level:: Medical - moderate - high VTE Device Contraindication: N/A - Device Ordered VTE Drug Contraindication: Treatment Not Indicated
--- NOTE | 2023-03-02 11:11 | MHC.CM.PN ---
met with pt who is from home where he loves with his s/o ,he has his own ride home ,goes to [facility] for his methadone has own ride home
--- NOTE | 2023-03-02 12:06 | MHC.RECOVRN ---
Met with pt to follow up. Pt comfortable with 63 mg methadone, denies withdrawal symptoms. Pt reports 5/10 pain in thumb and is requesting pain medication. Pt denies other questions or concerns for t/w. RN aware.
--- NOTE | 2023-03-02 14:26 | HE.PHANOTE ---
vancomycin addendum vanco level came back at 11.7, increased frequency to 1250 mg q 8 hours, will recheck level nathan
[2023-03-02 14:59] VITALS: BP 108/57; PULSE 55; RESP 20; TEMP 36.5; O2SAT 97
[2023-03-02 20:00] VITALS: BP 100/62; PULSE 95; RESP 18; TEMP 36.7; O2SAT 97
[2023-03-03 03:45] VITALS: BP 107/60; PULSE 50; RESP 16; TEMP 36.1; O2SAT 95
[2023-03-03 07:15] LABS: Creatinine Clr Calc Pharmacy 119.7; Estimated Glomerular Filt Rate > 60
[2023-03-03 07:41] VITALS: BP 131/73; PULSE 50; RESP 20; TEMP 36.6; O2SAT 96
--- NOTE | 2023-03-03 10:36 | HO.PM.IMPN ---
Subjective Subjective Date of Service: 03/03/23 Interval History: seen and examined this morning follow up for right hand infection doing better still some swelling Review of Systems Review of Systems: Yes all other systems are reviewed and are negative Constitutional Constitutional: Denies chills and Denies fever(s) ENT Ears, Nose, Mouth, and Throat: Denies dizziness Cardiovascular Cardiovascular: Denies chest pain, Denies palpitations and Denies dyspnea Respiratory Respiratory: Denies cough and Denies dyspnea Gastrointestinal Gastrointestinal: Denies abdominal pain, Denies nausea and Denies vomiting Neurologic Neurologic: Denies dizziness Endocrine Endocrine: Denies palpitations Physical Exam Vital Signs: Vital Signs: Last Vital Signs Temp 97.9 F 03/03/23 07:41 Pulse 50 03/03/23 07:41 Resp 20 03/03/23 07:41 BP 131/73 03/03/23 07:41 Pulse Ox 96 03/03/23 07:41 O2 Del Method Room Air 03/03/23 07:41 BMI result Body Mass Index 21.8 Appearing in no acute distress lung sounds are clear to auscultation heart regular rate rhythm, clear S1, S2 positive bowel sounds, abdomen is soft, nontender neuro patient is alert x3, no focal deficits Hand dressing intact Objective Data Active Medications Acetaminophen (Acetaminophen 325 Mg Tablet) 650 mg PO Q6H PRN PRN Reason: Pain, Mild (Pain Scale 1-3) Vancomycin HCl 1,250 mg/ (Sodium Chloride) 250 mls @ 166.667 mls/hr IV Q8H [facility] Last Infusion: 03/03/23 08:06 Dose: 0 mls/hr Documented By: SALTY Melatonin (Melatonin 3 Mg Tablet) 6 mg PO BEDTIME PRN PRN Reason: Insomnia Last Admin: 03/02/23 21:11 Dose: 6 mg Documented By: EDITH Methadone HCl (Methadone Hcl 20 Mg/2 Ml Oral.Conc) 63 mg PO DAILY [facility] Last Admin: 03/03/23 08:04 Dose: 63 mg Documented By: SALTY Ondansetron HCl (Ondansetron Hcl 4 Mg/2 Ml Vial) 4 mg IVPUSH Q8H PRN PRN Reason: Nausea and Vomiting Oxycodone HCl (Oxycodone Hcl Immed Release 5 Mg Tablet) 5 mg PO Q4H PRN PRN Reason: Pain, Moderate(Pain Scale 4-6) Last Admin: 03/03/23 08:08 Dose: 5 mg Documented By: SALTY Pharmacy Consult (Consult Rx Vancomycin Dosing) 1 each MISCELLANE DAILY PRN PRN Reason: Consult order Pharmacy Consult (Consult Rx Perform Med Rec) 1 each MISCELLANE ONCE PRN PRN Reason: Consult order Pharmacy Consult (Consult Rx Perform Med Rec) 1 each MISCELLANE ONCE PRN PRN Reason: Consult order Sodium Chloride (0.9 % Sodium Chloride Flush 3 Ml Syringe) 3 ml IVFLUSH QSHIFT CARLO Last Admin: 03/03/23 08:00 Dose: Not Given Documented By: SALTY Non-Admin Reason: IV Running Labs 03/02/23 05:31 03/03/23 06:44 Labs: Laboratory Results - last 24 hr 03/02/23 03/03/23 13:47 06:44 Estim Creat Clear Calc 119.7 Estimated GFR > 60 Random Vancomycin 11.7 L Microbiology Microbiology Results: Microbiology 03/01/23 Unknown Gram Stain - Final Thumb Right - Abscess Routine Culture - Preliminary Staphylococcus aureus 03/01/23 01:03 Blood Culture - Preliminary Blood - Venous No growth after 48 hours. 03/01/23 00:42 Blood Culture - Preliminary Blood - Venous No growth after 48 hours. Assessment and Plan (1) Abscess of right thumb: Status: Acute Plan This is a 52-year-old male with history of IV drug use disorder presents to the emergency department evaluation of thumb pain and swelling. Septic arthritis/abscess of right thumb continue IV vancomycin seen by ortho>s/p I&D/washout 03/01/23 blood cultures neg after 48 hrs thumb cx staph aureus pain control Polysubstance abuse Tox screen positive for opiates, fentanyl, benzos, cocaine, marijuana not displaying anything withdrawal symptoms at this time addiction medicine consult>oxycodone and methadone Bradycardia. Resolved s/p HR in 40s EKG sinus jonel may be secondary to methadone, not on any other rate lowering medication asymptomatic monitor on telemetry Hypotension. Resolved does not meet sirs criteria continue IVF monitor BP closely elevated LFTs, mild no abdominal pain trend LFTs normocytic anemia H/H stable and above transfusion threshold follow CBC DVT prophylaxis: SCDs Full code attending Dr. loyola patient requires ongoing inpatient stay for IV abx, close monitoring of blood pressure Time Spent With Patient Time: Total time managing care of this patient today ____ minutes. Quality Stroke Does the patient have a stroke diagnosis?: No VTE Prior VTE?: No VTE Risk Level:: Medical - moderate - high VTE Device Contraindication: N/A - Device Ordered VTE Drug Contraindication: Treatment Not Indicated
--- NOTE | 2023-03-03 10:40 | P.DS_ITS ---
DS: Providers Provider Date of Service: 03/03/23 Date of admission: 03/01/23 02:24 Primary care physician: Unknown Physician Consults: 03/01/23 02:24 Consult to Orthopedics Routine Consulting Provider: [facility] Reason for consultation: thumb swelling 03/01/23 02:39 Addiction Medicine Routine Consulting Provider: Addiction Covering Reason for consultation: iv drug use disorder 03/03/23 07:58 Consult to Infectious Diseases Routine Consulting Provider: [facility] Infectious Disease Reason for consultation: stpah aureus, hand wound DS: Diagnosis Discharge Diagnosis (1) Abscess of right thumb: Status: Acute (2) Cellulitis of right thumb: Status: Acute (3) Drug use disorder: Status: Acute DS: Summary Hospital Course Hospital Course: HP as per admitting provider This is a 52-year-old male with pertinent history of IV drug use disorder presents to the emergency department evaluation of thumb pain and swelling.? Patient states it started 2 days prior to presentation when he he punched a mobile home.? His right thumb became red, swollen and tender.? He has inability to make a fist or flexes right thumb.? No systemic complaints.? Patient states that he did not inject anything into his right thumb.? States he is up-to-date with tetanus vaccination.? He denies fever, chills, chest discom fort, palpitations, shortness of breath, abdominal pain, changes in urinary or bowel habits. In the emergency department, x-ray without acute fracture or dislocation 52-year-old man admitted for septic arthritis with abscess to the right thumb. He was treated with IV vancomycin, status post I&D and washout on 03/01/2023 by Orthopedic surgery. Blood cultures negative after 48 hours. Some culture showed Staph aureus. Doxycycline for total antibiotic treatment of 14 days. He was also treated with methadone and oxycodone for history of polysubstance abuse. He had an episode of bradycardia with heart rate in the 40s at that time suspected to be related to the methadone however this did improve on its own. He was treated with IV fluids for initial hypotension which did resolve on its own. He had a mild elevation in his liver enzymes which did trend down and there was no change in his normocytic anemia, H&H remained stable of transfusion threshold. Time Spent with Patient Time attestation: Total time managing care of this patient today ____ minutes. Discharge coordination time: Greater than 30 minutes Quality: Safe Use of Opioids Does Pt have an Active Cancer Diagnosis on the Problem List?: No Quality: Stroke Does the patient have a stroke diagnosis?: No Physical Exam Vital Signs: Vital Signs: Last Vital Signs Temp 97.9 F 03/03/23 07:41 Pulse 50 03/03/23 07:41 Resp 20 03/03/23 07:41 BP 131/73 03/03/23 07:41 Pulse Ox 96 03/03/23 07:41 O2 Del Method Room Air 03/03/23 07:41 BMI result Body Mass Index 21.8 Appearing in no acute distress head is normocephalic atraumatic eyes pupils are PERRLA sclera is anicteric mouth throat mucous membranes are intact and moist neck is supple no lymphadenopathy, no JVD noted lung sounds are clear to auscultation heart regular rate rhythm, clear S1, S2 positive bowel sounds, abdomen is soft, nontender neuro patient is alert x3, no focal deficits right hand dressing DS: Data Data Completed and Pending Labs on day of discharge: Laboratory Results - last 24 hr 03/02/23 03/03/23 13:47 06:44 Creatinine 0.67 Estim Creat Clear Calc 119.7 Estimated GFR > 60 Random Vancomycin 11.7 L Preliminary micro results at discharge 03/01/23 Unknown Routine Culture - Preliminary Thumb Right - Abscess Staphylococcus aureus 03/01/23 01:03 Blood Culture - Preliminary Blood - Venous No growth after 48 hours. 03/01/23 00:42 Blood Culture - Preliminary Blood - Venous No growth after 48 hours. Discharge Plan Discharge Anticipated Discharge Date/Time: 03/03/23 10:48 Patient Disposition: Home Health Service Discharge Diagnosis: Septic arthritis Polysubstance abuse Bradycardia Hypertension Elevated LFT Referrals: zoran [Other] - 1 Week Gayle Grewal MD [Physician] - 1 Week Discharge Medications: New doxycycline hyclate 100 mg tablet 100 mg PO BID Qty: 24 0RF Continued methadone [Methadone Intensol] 10 mg/mL Concentrate 63 mg PO DAILY Discharge Orders: Discharge Order (Routine); Ordered 03/03/23 Ordered By: Char Lizama Diet: Advance to usual diet Activity on Discharge: As tolerated Stand Alone Forms: Patient Portal Discharge page Care Plan Goals: Doxycycline 100 mg twice daily for 12 days Health Concerns: Septic arthritis Polysubstance abuse Bradycardia Hypertension Elevated LFT Plan of Treatment: Follow up with Orthopedic surgery Take all medications as prescribed Assessment: See discharge summary
--- NOTE | 2023-03-03 13:38 | W.MHC.F2F ---
Service Date Service Date: 03/03/23 Encounter Date of encounter: 03/03/23 Reasons for Services Signs and symptoms assessed: S/p I&D right thumb Reason for long-term: wound care (xeroform and gauze daily ) Homebound: Leaving the home is medically contraindicated at this time without the asist of a device and/or another person due th the listed conditions above and below. Reason homebound: other (right hand pain ) Certification: Based on the above findings, I certify that this patient is confined to the home and needs intermittent long-term care, physical therapy and/or speech therapy, or continues to need occupational therapy. The patient is under my care, and I have initiated the establishment of the plan of care. The patient will be followed by a physician who will periodically review the plan of care. Time Spent With Patient Time: Total time managing care of this patient today ____ minutes.
--- NOTE | 2023-03-05 13:18 | MHC.CM.PN ---
LATE ENTRY FOLLOWING PT D/C Received call from Wilfredo APPLE noting pt does not have an active [employer] until 04/[address] Riggins at the [facility]. AMBIKA cannot get the appointment sooner and is not able to start services without signed orders. Pt will need dressing changes and assessments following I&D to hand. Call placed to pt to inquire on his current dressings and to request he call Dr. Riggins to be urgently seen and/or return to ED for eval. Will await call back.
== END 2023-03-03 13:10 | disposition home health service (06) ==
LOC: HO.ED 03-01 02:17 → HO.EDOVER 03-01 02:30 → HO.S3 03-01 07:59
PROVIDERS: Orthopaedic Surgery; Physician Assistant Medical; Admitting Provider Student in an Organized Health Care Education/Training Program; Emergency Provider Student in an Organized Health Care Education/Training Program; PCP Internal Medicine; Visit Provider Nurse Practitioner Acute Care
PROC: (CPT 26010; principal; 2023-03-01 15:10)
DX: M00.041 Staphylococcal arthritis, right hand (principal); B95.61 Methicillin susceptible Staphylococcus aureus infection as the cause of diseases classified elsewhere; R00.1 Bradycardia, unspecified; F11.20 Opioid dependence, uncomplicated; R79.89 Other specified abnormal findings of blood chemistry; F19.90 Other psychoactive substance use, unspecified, uncomplicated; I10 Essential (primary) hypertension; D64.9 Anemia, unspecified; Z79.899 Other long term (current) drug therapy
CPT/HCPCS: 26010; 36415; 73130; 73201; 80048; 80053; 80076; 80202; 80307; 82565; 83605; 85025; 87040; 87070; 87077; 87186; 87205; 93005; 96361; 96365; 96366; 96367; 99221; 99285; J2543; J2795; J3371; Q9967

== ENCOUNTER → 2023-03-01 02:24 | Outpatient (BNV) | payer MEDICARE, MEDICAID, SELFPAY | PROVIDERS: Admitting Provider Student in an Organized Health Care Education/Training Program; Emergency Provider Student in an Organized Health Care Education/Training Program; Visit Provider Student in an Organized Health Care Education/Training Program | DX: L02.511 Cutaneous abscess of right hand (principal) | CPT/HCPCS: 99223; 99232; 99239; 99499; G0180 ==

== ENCOUNTER 2023-04-12 18:02 | Emergency (ER) | payer MEDICARE, MEDICAID, SELFPAY ==
--- NOTE | ~2023-04-12 | XR_ITS ---
EXAMINATION: XR chest 2V CLINICAL INFORMATION: Reason for Exam left thoracic back pain COMPARISON: No prior chest x-ray available in our system for comparison at the time of this dictation. TECHNIQUE: XR chest 2V Lungs and Ana: Both lungs are clear. Pleura: Normal. Costophrenic angles are sharp. No pneumothorax. Heart: The heart is normal in size. Mediastinum: The mediastinum is within normal limits.. Bones: Skeletal structures included are normal for patient's age. XR/XR chest 2V IMPRESSION: No radiographic evidence of acute cardiopulmonary disease.
[2023-04-12 18:12] VITALS: BP 112/76; PULSE 117; RESP 19; TEMP 36.6; O2SAT 98; BMI 21.5
--- NOTE | 2023-04-12 18:28 | ED.GENADULT ---
HPI - General Adult General Chief complaint: Back Pain/Injury Stated complaint: Back pain Time Seen by Provider: 04/12/23 23:02 Source: patient Mode of arrival: ambulatory Limitations: no limitations History of Present Illness HPI narrative: 53-year-old male presents with severe left thoracic back pain. Pain started this morning. Patient noted slight trauma yesterday evening in the garage. This morning, he woke up with severe pain. The pain has been increasing in severity. Worse with movement. The pain sometimes radiates right in to his left abdominal area. It is not associated with nausea vomiting. There is no numbness or tingling. There is no weakness. No loss of bowel or bladder control. No saddle paresthesias. He denies any additional injuries. There is no prior treatment. Currently the pain is a 10/10. Patient describes the pain as a sharp shooting pain Related Data Home Medications Medication Instructions Recorded Confirmed methadone 10 mg/mL oral 63 mg PO DAILY 03/01/23 03/01/23 concentrate (Methadone Intensol) Previous Rx's Medication Instructions Recorded doxycycline hyclate 100 mg tablet 100 mg PO BID #24 tabs 03/03/23 cyclobenzaprine 10 mg tablet 10 mg PO TID PRN muscle spasm #10 04/12/23 tabs gabapentin 300 mg capsule 300 mg PO TID #30 caps 04/12/23 lidocaine 5 % topical patch 1 patch topical DAILY #30 ea 04/12/23 naproxen 500 mg tablet 500 mg PO BID #14 tabs 04/13/23 Allergies Allergy/AdvReac Type Severity Reaction Status Date / Time No Known Allergies Allergy Verified 04/12/23 18:12 Review of Systems Review of Systems: CONSTITUTIONAL: Denies weight loss, fever and chills. HEENT: Denies changes in vision and hearing. RESPIRATORY: Denies SOB and cough. CV: Denies palpitations no CP. GI: Denies abdominal pain, nausea, vomiting and diarrhea. : Denies dysuria and urinary frequency. MSK: + myalgia and joint pain. SKIN: Denies rash and pruritus. NEUROLOGICAL: Denies headache and syncope. PSYCHIATRIC: Denies recent changes in mood. Denies anxiety and depression. All other ROS are negative unless in HPI PMFSH Past Medical History Medical History Drug use disorder Social History Social History Patient Tobacco Use Status: Current someday Tobacco user Tobacco use type: Cigarette Cigarettes Per Day: 2 Advance Directives: No Advance Directives Information Provided: No service: No Physical Exam ED Vital Signs: Vital Signs - 24 hr 04/12/23 18:12 04/12/23 22:07 04/12/23 22:59 Temperature 98 F 98.2 F 98 F Pulse Rate 117 H 112 H 60 Respiratory Rate 19 20 18 Blood Pressure 112/76 122/76 137/65 Pulse Oximetry 98 97 98 Oxygen Delivery Method Room Air Room Air BMI result Body Mass Index 21.5 GEN: Well developed, + acute distress, alert, oriented HEENT: Normocephalic, atraumatic, normal external ears, nose appears normal, no oropharyngeal edema or exudates Eyes: Normal to appearance Neck: Supple, no lymphadenopathy Respiratory: Talks in complete sentences, no respiratory distress, clear to auscultation bilaterally Cardiovascular: Regular rate and rhythm, no murmurs rubs or gallops Abdomen: Soft, nontender, nondistended, no guarding, no rebound Back: No CVA tenderness Extremities: No clubbing cyanosis or edema Neurologic: No focal neurologic deficits, cranial nerves 2-12 intact, strength is 5/5 bilaterally Skin: No rash Course Course Course Narrative: RME performed by Bernie Warren PA-C. Patient is a 53 year old assigned male at presenting to the emergency department with back pain. Patient placed back in the waiting room pending room availability. Reevaluation(s) Reevaluation #1: Patient is feeling moderately better at this time. Comfortable being discharged at this time. Discussed pain management and the natural course of his symptoms. Time: 01:29 Medications Administered Discontinued Medications Generic Name Dose Route Start Last Admin Trade Name Freq PRN Reason Stop Dose Admin Cyclobenzaprine HCl 10 mg 04/12/23 23:26 04/13/23 00:52 Cyclobenzaprine Hcl 10 Mg Tablet PO 04/12/23 23:27 10 mg ONCE ONE Administration Gabapentin 300 mg 04/12/23 23:26 04/13/23 00:52 Gabapentin 300 Mg Capsule PO 04/12/23 23:27 300 mg ONCE ONE Administration Ketorolac Tromethamine 30 mg 04/12/23 23:26 04/13/23 00:52 Ketorolac Tromethamine 30 Mg/Ml Vial IM 04/12/23 23:27 30 mg ONCE ONE Administration Lidocaine 1 patch 04/12/23 23:27 04/13/23 00:53 Lidocaine 4 % Patch Adh..Patch TRANSDERMA 04/12/23 23:28 1 patch ONCE ONE Administration Protocol Medical Decision Making Medical Decision Making MDM Narrative: 53-year-old male presents with severe thoracic back pain. The pain was not reproducible on physical exam. Lungs are clear to auscultation bilaterally. Differential diagnosis includes sprain, strain, fracture, contusion, spasm. Doubt pneumothorax or significant cardiothoracic injury. Plan will be to obtain an x-ray to rule out pneumothorax or pulmonary contusion. Will give patient analgesia and re-evaluate patient. Differential Diagnosis Differential Diagnoses: The differential diagnosis associated with the presentation includes (See above) Thoracic back pain Independent Interpretation I performed an independent interpretation of an: Plain X-Ray (Chest: No acute cardiopulmonary disease) Radiology Impression Discussion of test interpretation with radiology: I have reviewed the radiologist's reading. Radiologist Impression: XR/XR chest 2V IMPRESSION: No radiographic evidence of acute cardiopulmonary disease. Dictated By: Cass Londono MD Signed By: <Electronically signed by Cass Londono MD in OV> 04/12/23 4322 Independent Historian Clinical information obtained from an independent historian. History obtained from or confirmed by: Parent Prescription Management I considered prescription management with: Pain Medication Discharge Plan Discharge Clinical Impression: Back pain, thoracic Patient Disposition: Home, Self-Care Instructions: Back Pain (ED) Prescriptions: New gabapentin 300 mg capsule 300 mg PO TID Qty: 30 0RF cyclobenzaprine 10 mg tablet 10 mg PO TID PRN (Reason: muscle spasm) Qty: 10 0RF lidocaine 5 % adhesive patch,medicated 1 patch topical DAILY Qty: 30 0RF Rx Instructions: leave on most painful area for up to 12 hrs naproxen 500 mg tablet 500 mg PO BID Qty: 14 0RF No Action methadone [Methadone Intensol] 10 mg/mL Concentrate 63 mg PO DAILY doxycycline hyclate 100 mg tablet 100 mg PO BID Qty: 24 0RF Referrals: Yuridia Riggins MD [Primary Care Provider] - 2 days
--- NOTE | 2023-04-12 20:06 | PC.NURSE ---
pt vomited small amount of orange vomit, reporting 10/10 pain in back and stomach. Pt reports he may be withdrawing from heroin, last use was yesterday
--- NOTE | 2023-04-12 21:48 | PC.NURSE ---
pt sitting in bed, states his back pain is 101/10. family member with pt. skin pink warm and dry, no s/s of resp distress.
[2023-04-12 22:07] VITALS: BP 122/76; PULSE 112; RESP 20; TEMP 36.8; O2SAT 97
[2023-04-12 22:59] VITALS: BP 137/65; PULSE 60; RESP 18; TEMP 36.6; O2SAT 98
[2023-04-13] MEDS: Cyclobenzaprine HCl 10 MG TABLET PO (00:52)
[2023-04-13] MEDS: Ketorolac Tromethamine 30 MG/ML VIAL IM (00:52)
[2023-04-13] MEDS: Gabapentin 300 MG CAPSULE PO (00:52)
[2023-04-13] MEDS: Lidocaine 4 % Patch ADH..PATCH 1 PATCH TRANSDERMA (00:53)
[2023-04-13 01:33] VITALS: BP 152/76; PULSE 64; RESP 16; TEMP 36.6; O2SAT 98
--- NOTE | 2023-04-13 01:34 | MHC.EDTECH ---
THIS PCT JUST ASSUMED CARE OF PT ,VITALS SIGN TAKEN ,PT WAITING FOR DISCHARGED PAPER WORK .
== END 2023-04-13 01:43 | disposition home or self-care (01) ==
PROVIDERS: Emergency Provider Emergency Medicine; PCP Internal Medicine
DX: M54.6 Pain in thoracic spine (principal)
CPT/HCPCS: 71046; 96372; 99284; J1885

== ENCOUNTER 2023-04-19 09:19 | Outpatient (AMB) | payer MEDICARE, MEDICAID, SELFPAY ==
[2023-04-19 09:22] VITALS: BP 126/74; PULSE 87; O2SAT 98; BMI 22.7
--- NOTE | 2023-04-19 09:22 | A.OFFPC_ITS ---
Vital Signs 04/19/23 09:22 Height 5 ft 8 in Weight 149 lb BMI 22.7 BP 126/74 Blood Pressure Location Rt brachial Position Sitting Pulse 87 Pulse Source Pulse Oximeter Pulse Oximetry (%) 98 Oxygen Delivery Method Room Air Intake Visit Reasons: new pt appointment Intake Note: pt is here for new pt, establish care. Warehouse Assistant Required: No Accompanied by: Self / Same As Patient Allergies No Known Allergies Allergy (Verified 04/19/23 09:45) Medication List - Last Reconciled 04/19/23 by Yuridia Riggins MD methadone (Methadone Intensol) 57 mg PO DAILY Tobacco use date assessed: 04/19/23 Dental Screening Dental Screen Date: 04/19/23 Did you have a dental visit in the last 12 months?: Yes Did you have a dental problem in the last 6 months where you did not have access to dental care?: No Was dental information given to patient?: Yes HPI new pt appointment HPI Details 52-year-old man, here today to establish care with new PCP. He has history of IV drug use (cocaine), was recently admitted admitted for septic arthritis with abscess to the right thumb 03/14/2023, treated with IV vancomycin, status post I&D and washout on 03/01/2023 by Orthopedic surgery, and finished taking Doxycycline for total treatment of 14 days.? He was also treated with methadone and oxycodone for history of polysubstance abuse.? He had an episode of bradycardia during his recent admission with heart rate in the 40s at that time suspected to be related to the methadone, however this did improve on its own.? He was treated with IV fluids for initial hypotension which did resolve on its own.? He had a mild elevation in his liver enzymes which did trend down and there was no change in his normocytic anemia, H&H remained stable . He has been feeling well, no complaints at present time. However currently still uses IV drugs, last used heroin approximately a week ago. He is currently being followed at [facility] where he receives his methadone. [facility] Medical History (Updated 04/20/23 @ 02:35 by Yuridia Riggins MD) Elevated liver transaminase level History of colon polyps History of septic arthritis IVDU (intravenous drug user) Methadone use Normocytic normochromic anemia Surgical History Hx of hernia repair Family History (Updated 04/19/23 @ 10:26 by Yuridia Riggins MD) Mother Cirrhosis of liver Father Lung cancer Maternal Grandfather Colon cancer Social History Housing: House Alcohol intake: never Patient Tobacco Use Status: Current someday Tobacco user Tobacco use type: Cigarette Cigarettes Per Day: 2 e-Cigarette/Vaping Use: Never Used Substance Use Type: Heroin service: No Current occupational status: employed Current occupation: home health care Current occupational exposures/hazards: No Cognitive needs: No Hearing needs: No Vision needs: Yes (reading glasses) Questionnaire PHQ-9 Over the last 2 weeks, how often have you been bothered by any of the following problems? 1. Little interest or pleasure in doing things: not at all 2. Feeling down, depressed, or hopeless: not at all 3. Trouble falling or staying asleep, or sleeping too much: not at all 4. Feeling tired or having little energy: not at all 5. Poor appetite or overeating: not at all 6. Feeling bad about yourself - or that you are a failure or have let yourself or your family down: not at all 7. Trouble concentrating on things, such as reading the newspaper or watching television: not at all 8. Moving or speaking so slowly that other people could have noticed. Or the opposite - being so fidgety or restless that you have been moving around a lot more than usual: not at all 9. Thoughts that you would be better off or of hurting yourself in some way: not at all Total score: 0 Depression Screening Interpretation: Negative 45042 - PHQ-9 Billing: Yes Source: Developed by Drs. Chaparro Weller, Jeannette Oakes, Gualberto Wild and colleagues, with an educational jake from [employer]. Thrive Questionnaire Date Thrive assessed: 03/02/23 I am a: Patient What is your living situation today?: I have a steady place to live Within the past 12 months, did the food you bought not last and you didn't have the money to get more?: Never true Within the past 12 months, did you worry whether your food would run out before you got money to buy more?: Never true Do you have trouble paying for medicines?: No Do you have trouble getting transportation to medical appointments?: No Do you have trouble paying your heating and electricity bill?: No Do you have trouble taking care of your child, family member or friend?: No Do you have trouble with day-to-day activities such as bathing, preparing meals, shopping, managing finances, etc.?: No Are you currently unemployed and looking for a job?: No Are you interested in more education?: No AUDIT C Alcohol Use Questionnaire (AUDIT-C) 1. How often do you have a drink containing alcohol?: Never Total Score: 0 MELISSA-7 AMB Questionnaire MELISSA-7 Date MELISSA - 7 assessed: 04/19/23 Feeling nervous, anxious, or on edge: 0 = Not at all Not being able to stop or control worryin = Not at all Worrying too much about different things: 0 = Not at all Trouble relaxin = Not at all Being so restless that it is hard to sit still: 0 = Not at all Becoming easily annoyed or irritable: 0 = Not at all Feeling afraid as if something awful might happen: 0 = Not at all Total MELISSA-7 score (0-4 normal; 5-9 mild; 10-14 moderate; 15-21 severe): 0 Source: Developed by Drs. Chaparro Weller, Jeannette Oakes, Gualberto Wild and colleagues, with an educational jake from [employer]. MELISSA-7 Assessment Billing MELISSA-7 Assessment Tool: MELISSA-7 Assessment 41888 Review of Systems Const Denies body aches, Denies fatigue, Denies fever(s), Denies headache(s) and Denies weakness Eyes Denies change in vision ENT Denies dizziness, Denies headache(s), Denies nasal congestion, Denies nasal discharge and Denies sore throat Card Denies chest pain, Denies lightheadedness, Denies palpitations and Denies dyspnea Resp Denies chest congestion, Denies cough, Denies dyspnea and Denies wheezing GI Denies abdominal pain, Denies change in bowel habits and Denies heartburn Denies hematuria, Denies difficulty urinating, Denies dysuria, Denies urinary frequency and Denies urinary urgency Musc Denies myalgias, Denies deformity, Denies arthralgias, Reports joint swelling (Slight swelling left thumb), Denies muscle cramps and Denies muscle weakness Skin/Breast Denies breast pain, Denies breast mass, Denies lesions and Denies rash Neuro Denies dizziness, Denies headache(s) and Denies weakness Psych Reports no additional complaints Endo Denies fatigue, Denies polydipsia, Denies polyuria and Denies palpitations Adebayo/Lymph Denies easy bruising Aller/Immun Denies seasonal rhinorrhea and Denies wheezing Physical exam (Primary Care) Vital Signs: Last Vital Signs Pulse 87 04/19/23 09:22 BP 126/74 04/19/23 09:22 Pulse Ox 98 04/19/23 09:22 Oxygen Delivery Method Room Air 04/19/23 09:22 BMI result Body Mass Index 22.7 Tobacco/Smoking Status: Tobacco use Status Tobacco use date assessed 04/19/23 04/19/23 09:25 Patient Tobacco Use Status Current someday Tobacco 04/19/23 09:31 Tobacco use type Cigarette 04/19/23 09:31 e-Cigarette/Vaping Use Never Used 04/19/23 09:31 PHQ-9: PHQ-9 Score PHQ-9: Total score 0 04/19/23 11:10 Depression Screening Interpretation: Negative Thrive Assessment: Date of Thrive Assessment Date Thrive assessed 03/02/23 04/19/23 09:25 Const General: cooperative, comfortable, no acute distress, alert and awake Nutritional Appearance: average body habitus Orientation/consciousness: patient oriented x3 HENMT Head: Yes normocephalic Ears: external ears normal, TM's normal bilaterally and EAC's normal General nose exam: Normal external nose present Face and sinus: Yes face symmetric Mouth: Normal oral and palatal mucosa present, oropharynx normal and moist mucous membranes Eyes General: appearance normal, both eyes and all related structures Sclerae: sclerae normal Pupils: Equal, round and reactive pupils present EOM: EOMs intact bilaterally Direct Ophthalmoscopy: normal light reflex Neck Neck: Yes full ROM, Yes no lymphadenopathy and Yes supple Thyroid: Thyroid normal Chest Chest palpation & inspection: normal inspection of the chest and normal palpation of entire chest wall Resp Effort & Inspection: normal respiratory effort and able to speak in complete sentences Auscultation: clear to auscultation bilaterally Percussion: percussion normal Cardio Rate: regular rate Rhythm: regular rhythm Heart sounds: S1 normal heart sound present and S2 normal heart sound present GI Inspection: Yes normal to inspection Palpation (GI): Soft to palpation, nontender, no guarding and no masses Auscultation: normal bowel sounds General: Yes no CVA tenderness Back/Spine/Pelvis Back: no CVA tenderness and No back tenderness Skin Other: Slight erythema overlying left thumb, with mild swelling noted on DIP joint of left thumb, area nontender to palpation and not warm to touch, no active drainage seen Neuro General: patient oriented x3, gait normal, tone normal, moves all extremities, Normal light touch and pain sensation, no focal motor deficits and CN's II-XI intact bilaterally Cranial nerves: Yes Equal, round and reactive pupils present Cognition (Neuro): normal cognition Gait exam (Neuro): Normal gait present Psych Appearance: grossly normal and well kempt Mental Status: mental status grossly normal Speech and movement: Normal speech and movement present Affect: normal affect Attitude: cooperative Immunizations pneumoc 20-marie conj-dip cr(PF) Performing Provider: Yuridia Riggins MD Administered by: Joaquim Silverio CMA on 04/19/23 11:10 Dose Route Admin Location Lot Number Expiration Date NDC Creative Resource Manager 0.5 mL IM Left Deltoid [id number] 06/25/24 [employer] Medical VIS Given Date VIS Provided VIS Publication Date 04/19/23 Single Vaccine 21 Eligibility Eligibility Date Funding Source Not VFC Eligible 04/19/23 Private Results Reviewed Results Reviewed: RUN: 04/20/23 0228 PAGE 1 [facility] [address] [place] [id number] Radio Station Audio Engineer: Leonard Quintero M.D. Specimen Inquiry Name: Eduardo Medina Age/Sex: 52/M : 1970 Unit#: [id number] Attend Dr: Char Lizama RADIOLOGY ADMINISTRATOR Re03/01/23 Status: DIS KIMBERLEY Location: [place] [id number] Disch: 03/03/23 SPEC : [id number] ELE: 03/02/23 STATUS: COMP REQ : [id number] RECD: 03/02/23-[address]: Helga Gilman MD COMP: 03/02/23 ENTERED: 03/02/23- OT DR: Thea Kearney Physician,Unknown ORDERED: Liver Panel, BMP Test Result Flag Reference Site Sodium 141 135-145 mmol/L Potassium 4.0 3.3-5.1 mmol/L CL 110 H 96-108 mmol/L CO2 25 22-29 mmol/L Gap 10 L 12-20 BUN 6 L 9-16 mg/dL Creat 0.64 0.5-1.4 mg/dL Estimated CrCl 125.3 eGFR (calculated from the MDRD study equation) and eCrCl (calculated from the Cockcroft-Gault equation) are based on different parameters and may not yield comparable results. If eCrCl result is absurd, please check patient's height/weight. EGFR > 60 NOTE: For -[place] individuals, multiply the result by 1.210. Chronic Kidney Disease: Estimated GFR < 60 mL/min/1.73 m2 Severe Kidney Disease: Estimated GFR < 15 mL/min/1.73m2 Glucose, Random 89 60-115 mg/dL CA 8.6 # 8.4-10.2 mg/dL Total Bili 0.2 0.0-1.0 mg/dL Direct Bili < 0.2 0.0-0.5 mg/dL AST (GOT) 77 H 5-37 U/L ALT (GPT) 62 H 0-40 U/L Protein, Total 5.7 L 6.5-8.0 g/dL Alb 2.5 L 3.5-5.0 g/dL Alk Phos 72 39-117 U/L RUN: 04/20/23 0229 PAGE 1 [facility] [address] [place] [id number] Radio Station Audio Engineer: Leonard Quintero M.D. Specimen Inquiry Name: Eduardo Medina Age/Sex: 52/M : 1970 Unit#: [id number] Attend Dr: Char Lizama RADIOLOGY ADMINISTRATOR Re03/01/23 Status: DIS KIMBERLEY Location: [place] [address] Disch: 03/03/23 SPEC : [id number] ELE: 03/02/23 STATUS: COMP REQ : [id number] RECD: 03/02/[address] [facility] [address]: Thea Kearney COMP: 03/02/23 ENTERED: 03/02/[address] [facility] [address]: Physician,Unknown ORDERED: CBC Auto Diff Test Result Flag Reference Site WBC 6.8 4.8-10.8 X10*3/uL RBC 4.06 L 4.60-5.80 X10*6/uL HGB 11.9 L 14.0-18.0 g/dl HCT 36.7 L 42.0-52.0 % MCV 90.4 80.0-98.0 fL MCH 29.3 27.0-33.0 pg MCHC 32.4 31.0-36.0 g/dl RDW 13.2 11.0-16.0 % PLT 219 160-400 X10*3/uL MPV 9.6 9.4-12.4 fL Neut Pct Auto 54.7 45-73 % ImGran Pct Auto 0.4 0.0-0.4 % Lymp Pct Auto 22.1 20-40 % Gillespie Pct Auto 15.1 H 2-11 % Eos Pct Auto 6.7 H 0-4 % Baso Pct Auto 1.0 0-2 % NRBC Pct Auto 0.0 0.0-0.2 /100WBC ANC Neut Abs # 3.7 2.0-8.3 x10*3/uL ImGran Abs Auto 0.03 0.00-0.03 X10*3/uL Lymph Abs Auto 1.5 1.2-4.9 X10*3/uL Gillespie Abs Auto 1.0 0.1-1.2 X10*3/uL Eos Abs Auto 0.5 H 0.0-0.4 X10*3/uL Baso Abs Auto 0.1 0.0-0.2 X10*3/uL NRBC Abs Auto 0.000 0.0-0.012 X10*3/uL Assessment and Plan Assessment & Plan (1) IVDU (intravenous drug user): Code(s): F19.90 - Other psychoactive substance use, unspecified, uncomplicated Plan: On methadone, currently being followed at [facility] in [place], check hepatitis-B C profile and HIV screening (2) Elevated liver transaminase level: Code(s): R74.01 - Elevation of levels of liver transaminase levels Plan: Ordered hepatitis B, C profile (3) Normocytic normochromic anemia: Code(s): D64.9 - Anemia, unspecified Plan: Will check iron level, B12 vitamin-D (4) Methadone use: Comment: Goes to [facility] in [place] Code(s): F11.90 - Opioid use, unspecified, uncomplicated (5) Need for Tdap vaccination: Code(s): Z23 - Encounter for immunization Plan: Tdap given today (6) History of colon polyps: Comment: History of colonoscopy at [facility] more than 10 years ago per patient. Ransom to [facility] clinic for his screening colonoscopy Code(s): Z86.010 - Personal history of colonic polyps Orders: Orders Vitamin B12 and Folate 04/19/23 D64.9 - Anemia, unspecified, F11.90 - Opioid use, unspecified, uncomplicated, F19.90 - Other psychoactive substance use, unspecified, uncomplicated, R74.01 - Elevation of levels of liver transaminase levels, Z87.39 - Personal history of other diseases of the musculoskeletal system and connective tissue Comprehensive Met. Panel 04/19/23 D64.9 - Anemia, unspecified, F11.90 - Opioid use, unspecified, uncomplicated, F19.90 - Other psychoactive substance use, unspecified, uncomplicated, R74.01 - Elevation of levels of liver transaminase levels, Z87.39 - Personal history of other diseases of the musculoskeletal system and connective tissue IRON PROFILE 04/19/23 D64.9 - Anemia, unspecified, F11.90 - Opioid use, unspecified, uncomplicated, F19.90 - Other psychoactive substance use, unspecified, uncomplicated, R74.01 - Elevation of levels of liver transaminase levels, Z87.39 - Personal history of other diseases of the musculoskeletal system and connective tissue Vitamin D 25-OH Total 04/19/23 D64.9 - Anemia, unspecified, F11.90 - Opioid use, unspecified, uncomplicated, F19.90 - Other psychoactive substance use, unspecified, uncomplicated, R74.01 - Elevation of levels of liver transaminase levels, Z87.39 - Personal history of other diseases of the musculoskeletal system and connective tissue Complete Blood Count Auto Diff 04/19/23 D64.9 - Anemia, unspecified, F11.90 - Opioid use, unspecified, uncomplicated, F19.90 - Other psychoactive substance use, unspecified, uncomplicated, R74.01 - Elevation of levels of liver transaminase levels, Z87.39 - Personal history of other diseases of the musculoskeletal system and connective tissue Hepatitis B,C Profile Today - Opioid use, unspecified, uncomplicated, F19.90 - Other psychoactive substance use, unspecified, uncomplicated, R74.01 - Elevation of levels of liver transaminase levels HIV Ab/Ag Today - Opioid use, unspecified, uncomplicated, F19.90 - Other psychoactive substance use, unspecified, uncomplicated, R74.01 - Elevation of levels of liver transaminase levels Pneumococcal 20 Immunization 04/19/23 Z23 - Encounter for immunization Referrals Gastroenterology Referral D64.9 - Anemia, unspecified, Z86.010 - Personal history of colonic polyps Coding Level of Care Code New Pt Level 3 (63482) Diagnoses IVDU (intravenous drug user) F19.90 Elevated liver transaminase level R74.01 Normocytic normochromic anemia D64.9 Methadone use F1.90 Need for Tdap vaccination Z23 History of colon polyps Z86.010 Additional Codes MELISSA-7 Assessment Billing - MELISSA-7 Assessment Tool: MELISSA-7 Assessment 22478 ([id number])
== END 2023-04-19 11:26 | disposition home or self-care (01) ==
PROVIDERS: Visit Provider Internal Medicine
DX: D64.9 Anemia, unspecified (principal); F19.90 Other psychoactive substance use, unspecified, uncomplicated; Z86.010 Personal history of colon polyps; Z23 Encounter for immunization; R74.01 Elevation of levels of liver transaminase levels; F11.90 Opioid use, unspecified, uncomplicated
CPT/HCPCS: 90471; 90677; 99203

== ENCOUNTER 2023-05-22 11:48 | Outpatient (REF) | payer MEDICARE, MEDICAID, SELFPAY ==
[2023-05-22 13:08] LABS: MANUAL DIFF FLAG NO
[2023-05-22 13:18] LABS: Basophils Absolute Auto 0.1 X10*3/uL (0.0-0.2); Eosinophils Absolute Auto 0.6 X10*3/uL (0.0-0.4); Eosinophils Percent Auto 7.6 % (0-4); Hematocrit 42.3 % (42.0-52.0); Hemoglobin 13.8 g/dl (14.0-18.0); Imm Gran Abs Auto 0.02 X10*3/uL (0.00-0.03); Imm Gran Pct Auto 0.3 % (0.0-0.4); Lymphocytes Absolute Auto 1.9 X10*3/uL (1.2-4.9); Lymphocytes Percent Auto 25.2 % (20-40); Mean Corpuscular HGB Conc 32.6 g/dl (31.0-36.0); Mean Corpuscular Hemoglobin 29.6 pg (27.0-33.0); Mean Corpuscular Volume 90.8 fL (80.0-98.0); Mean Platelet Volume 9.4 fL (9.4-12.4); Monocytes Percent Auto 12.7 % (2-11); Neutrophils Absolute Auto 4.1 x10*3/uL (2.0-8.3); Neutrophils Percent Auto 53.2 % (45-73); Platelet Count 282 X10*3/uL (160-400); Red Blood Count 4.66 X10*6/uL (4.60-5.80); White Blood Count 7.6 X10*3/uL (4.8-10.8)
[2023-05-22 13:52] LABS: Alanine Aminotransferase 155 U/L (0-40); Albumin Level 3.9 g/dL (3.5-5.0); Alkaline Phosphatase 105 U/L (39-117); Anion Gap 12 (12-20); Aspartate Amino Transferase 143 U/L (5-37); Bilirubin Total 0.4 mg/dL (0.0-1.0); Blood Urea Nitrogen 15 mg/dL (9-16); Calcium 9.5 mg/dL (8.4-10.2); Carbon Dioxide 31 mmol/L (22-29); Chloride 102 mmol/L (96-108); Estimated Glomerular Filt Rate > 60; Glucose Random 98 mg/dL (60-115); Iron 116 mcg/dL (45-160); Percent Iron Saturation 32 % (15-50); Potassium 4.6 mmol/L (3.3-5.1); Sodium 140 mmol/L (135-145); Total Iron Binding Capacity 359 mcg/dL (228-428); Total Protein 8.1 g/dL (6.5-8.0); Unsaturated Iron Binding 243 ug/dL
[2023-05-22 14:11] LABS: Vitamin D 25-OH Total 36.5 ng/mL (>30)
[2023-05-22 14:17] LABS: Folate 13.6 ng/mL (> or = 4.0); Vitamin B12 552 pg/mL (200-900)
[2023-05-23 04:41] LABS: HBS Num1 0.26 mIU/mL (0-7.99); HBc Num1 0.18 S/CO (0.00-0.79); HIV AB/AG Nonreactive (Nonreactive); HIV Num 1 0.16 S/CO (0.00-0.99); Hepatitis B Core Antibody Nonreactive (Nonreactive); ~HepC Num1 15.66 S/CO (0.00-0.79); ~Hepatitis B Surface Antibody NONREACTIVE (Nonreactive); ~Hepatitis C Antibody Reactive (Nonreactive)
[2023-05-23 05:33] LABS: HBsAGNum2 Reactive; HBsAGNum3 Reactive
[2023-05-23 05:34] LABS: Hepatitis B Surface Antigen Retest CNFM (Negative)
[2023-05-28 10:46] LABS: HBsAG NON-REACTIVE
== END 2023-05-22 11:49 | disposition home or self-care (01) ==
LOC: HO.HMGCLDS 11:48
PROVIDERS: PCP Internal Medicine; Visit Provider Internal Medicine
DX: F19.90 Other psychoactive substance use, unspecified, uncomplicated (principal); D64.9 Anemia, unspecified; R74.01 Elevation of levels of liver transaminase levels; F11.90 Opioid use, unspecified, uncomplicated; Z87.39 Personal history of other diseases of the musculoskeletal system and connective tissue; Z11.59 Encounter for screening for other viral diseases; Z72.89 Other problems related to lifestyle
CPT/HCPCS: 36415; 80053; 82306; 82607; 82746; 83540; 85025; 86704; 86706; 86803; 87340; 87389

== ENCOUNTER 2023-06-26 08:18 | Outpatient (AMB) | payer MEDICARE, MEDICAID, SELFPAY ==
[2023-06-26 08:46] VITALS: BP 133/57; PULSE 75; O2SAT 94; BMI 22.8
--- NOTE | 2023-06-26 08:46 | MHC.OFFVIS ---
Intake Vital Signs 06/26/23 08:46 Height 5 ft 8 in Weight 149 lb 14.629 oz BMI 22.8 BP 133/57 L Blood Pressure Location Lt brachial Position Sitting Pulse 75 Pulse Source Pulse Oximeter Pulse Oximetry (%) 94 Oxygen Delivery Method Room Air Intake Visit Reasons: colonic polyps / Anemia Intake Note: Pt presents to the office today for colonic polyps/anemia. Pt states he has had a colonscopy over 10 years ago and hasnt had one since. Pt denies any GI concerns at this time. Allergies No Known Allergies Allergy (Verified 06/26/23 08:46) HPI colonic polyps / Anemia HPI Details 53 year old? male here today for pre colonoscopy screening.? Patient was sent to us by his PCP.? Patient had 1st colonoscopy 10 years ago at [facility].? Patient denies any gastrointestinal symptoms in the past or at present.? Maternal grandfather had colon cancer. Denies history of difficulty with sedation or anesthesia in the past.? Negative for history of sleep apnea.? Denies any history of cardiac, renal, pulmonary, or hepatic disease.?? No history of infectious? diseases like hepatitis A, B, C, HIV or tuberculosis.? Patient is on low-dose aspirin. Patient is on methadone. History of IV drug use in the past. Last time use was over a month ago. [facility] Medical History History of colon polyps Elevated liver transaminase level Normocytic normochromic anemia Methadone use History of septic arthritis IVDU (intravenous drug user) Surgical History Hx of hernia repair Family History Mother Cirrhosis of liver Father Lung cancer Maternal Grandfather Colon cancer Social History (Updated 06/26/23 @ 08:54 by Salome Santiago MA) Housing: House Alcohol intake: never Patient Tobacco Use Status: Current someday Tobacco user Tobacco use type: Cigarette Cigarettes Per Day: 2 e-Cigarette/Vaping Use: Never Used Substance Use Type: Crack/Cocaine and Marijuana service: No Current occupational status: employed Current occupation: home health care Current occupational exposures/hazards: No Cognitive needs: No Hearing needs: No Vision needs: Yes (reading glasses) Review of Systems Const Denies weight gain and Denies weight loss ENT Reports no additional complaints, Denies dysphagia and Denies odynophagia Card Reports no additional complaints Resp Reports no additional complaints GI Denies abdominal pain, Denies belching, Denies melena, Denies bloating, Denies change in bowel habits, Denies dysphagia, Denies excessive flatus, Denies dyspepsia, Denies heartburn, Denies diarrhea, Denies loose stools, Denies nausea, Denies odynophagia and Denies vomiting Reports no additional complaints Musc Reports no additional complaints Neuro Reports no additional complaints Psych Reports no additional complaints Endo Reports no additional complaints Physical Exam Vital Signs: Last Vital Signs Pulse 75 06/26/23 08:46 BP 133/57 L 06/26/23 08:46 Pulse Ox 94 06/26/23 08:46 Oxygen Delivery Method Room Air 06/26/23 08:46 BMI result Body Mass Index 22.8 Const General: healthy appearing, no acute distress and well developed Nutritional Appearance: well nourished Orientation/consciousness: patient oriented x3 HEENT Head: Yes normal to inspection, Yes normocephalic and Yes atraumatic Eyes General: appearance normal, both eyes and all related structures Neck Neck: Yes normal visual inspection, Yes full ROM and Yes trachea midline Thyroid: Thyroid normal Resp Effort & Inspection: normal respiratory effort, able to speak in complete sentences, no tracheal deviation and symmetric chest movement Auscultation: clear to auscultation bilaterally Cardio Rate: regular rate Heart sounds: S1 normal heart sound present and S2 normal heart sound present GI Inspection: Yes normal to inspection and No distended Palpation (GI): Soft to palpation, not firm, nontender and No hepatosplenomegaly present Auscultation: normal bowel sounds General: Yes no CVA tenderness Back/Spine/Pelvis Back: no CVA tenderness Skin General skin exam: elasticity normal, turgor normal and dry skin Neuro General: patient oriented x3 Psych Appearance: grossly normal Mental Status: mental status grossly normal Assessment & Plan Assessment & Plan (1) History of colon polyps: Code(s): Z86.010 - Personal history of colonic polyps (2) Screen for colon cancer: Code(s): Z12.11 - Encounter for screening for malignant neoplasm of colon Plan Patient denies any GI, cardiac or respiratory symptoms.? Denies any issues with anesthesia in the past.? Denies any history of sleep apnea.? No history infectious diseases in the past or present.? Patient is on low-dose aspirin. History of IV drug use and cocaine. Last time used IV drugs was over a month ago and cocaine just recently. Discussed with patient the importance of avoiding drugs altogether. Patient is on methadone. Reports family history of colorectal cancer.? Patient denies melena, hematochezia, unintentional weight loss or ribbon like stools.? Discussed at length the pre-procedure,? prep, diet & medications as well as what to expect prior, during and after the procedure.?? Stressed the importance of good bowel prep. ?Recommended the use of Vaseline or Calmoseptine OTC & baby wipes with bowel movements to promote comfort.? ?Patient verbalizes understanding and agrees to plan of care.? He was given the opportunity to ask questions and all questions answered.? We will see him after the procedure.? Medications: New bisacodyl (Dulcolax (bisacodyl)) take 4 tabs at noon the day before your colonoscopy 20 mg (4 x 5 mg) PO ONCE 4 tabs 0RF 1 day Z12.11 - Encounter for screening for malignant neoplasm of colon polyethylene glycol 3350 (Miralax) As directed by gastroenterology department at [facility] 238 grams PO ONCE 238 grams 0RF Z12.11 - Encounter for screening for malignant neoplasm of colon Coding Level of Care Code New Pt Level 3 (08882) Diagnoses History of colon polyps Z86.010 Screen for colon cancer Z12.11 Time Spent (min) 40 Comment 30 minutes spent with patient and additional 10 minutes spent reviewing his records
== END 2023-06-26 09:51 | disposition home or self-care (01) ==
PROVIDERS: PCP Internal Medicine; Visit Provider Nurse Practitioner Family
DX: Z01.818 Encounter for other preprocedural examination (principal); Z12.11 Encounter for screening for malignant neoplasm of colon; Z86.010 Personal history of colon polyps
CPT/HCPCS: 99203

== ENCOUNTER → 2023-06-26 08:18 | Outpatient (BNVA) | payer MEDICARE, MEDICAID, SELFPAY | PROVIDERS: PCP Internal Medicine; Visit Provider Nurse Practitioner Family | DX: Z01.818 Encounter for other preprocedural examination (principal); Z86.010 Personal history of colon polyps | CPT/HCPCS: 99202 ==

== ENCOUNTER 2023-08-20 11:41 | Outpatient (AMB) | payer MEDICARE, MEDICAID, SELFPAY ==
[2023-08-20 12:28] VITALS: BP 100/60; PULSE 60; O2SAT 95; BMI 23.1
--- NOTE | 2023-08-20 12:28 | MHC.PC.OV ---
Vital Signs 08/20/23 12:28 Height 5 ft 8 in Weight 152 lb BMI 23.1 BP 100/60 Blood Pressure Location Rt brachial Position Sitting Pulse 60 Pulse Source Pulse Oximeter Pulse Oximetry (%) 95 Oxygen Delivery Method Room Air Intake Visit Reasons: Annual PE Intake Note: Pt is here today for his PE Allergies No Known Allergies Allergy (Verified 09/19/23 02:14) Medication List - Last Reconciled 09/19/23 by Yuridia Riggins MD methadone (Methadone Intensol) 57 mg PO DAILY Tobacco use date assessed: 08/20/23 Dental Screening Dental Screen Date: 08/20/23 Did you have a dental visit in the last 12 months?: Yes Did you have a dental problem in the last 6 months where you did not have access to dental care?: Yes Was dental information given to patient?: Patient has dentist HPI Annual PE HPI Details 53-year-old male, here today for his physical exam. He has history of positive hepatitis-C antibody. Negative for hepatitis-B and HIV. He has history of IV drug use (cocaine), was admitted for septic arthritis with abscess to the right thumb 03/14/2023, treated with IV vancomycin and doxycycline,s/p I&D and washout on 03/01/2023 by Orthopedic surgery. He has been feeling well, no complaints at present time. However currently still uses IV drugs. He is currently being followed at [facility] where he receives his methadone. He has been referred to GI for his screening colonoscopy. [facility] Medical History Hepatitis C antibody test positive History of colon polyps Elevated liver transaminase level Normocytic normochromic anemia Methadone use History of septic arthritis IVDU (intravenous drug user) Surgical History Hx of hernia repair Family History (Updated 08/20/23 @ 12:30 by Airam Curry CMA) Mother Cirrhosis of liver Father Lung cancer Maternal Grandfather Colon cancer Social History Housing: House Alcohol intake: never Patient Tobacco Use Status: Current someday Tobacco user Tobacco use type: Cigarette Cigarettes Per Day: 2 e-Cigarette/Vaping Use: Never Used Substance Use Type: Crack/Cocaine and Marijuana service: No Current occupational status: employed Current occupation: home health care Current occupational exposures/hazards: No Cognitive needs: No Hearing needs: No Vision needs: Yes (reading glasses) Questionnaire Thrive Questionnaire Date Thrive assessed: 03/02/23 AUDIT C Alcohol Use Questionnaire (AUDIT-C) 1. How often do you have a drink containing alcohol?: Never Total Score: 0 MELISSA-7 AMB Questionnaire MELISSA-7 Date MELISSA - 7 assessed: 04/19/23 Source: Developed by Drs. Chaparro Weller, Jeannette Oakes, Gualberto Wild and colleagues, with an educational jake from [employer]. Review of Systems Const Denies body aches, Denies fatigue, Denies fever(s), Denies headache(s) and Denies weakness Eyes Denies change in vision ENT Denies dizziness, Denies headache(s), Denies nasal congestion, Denies nasal discharge and Denies sore throat Card Denies chest pain, Denies lightheadedness, Denies palpitations and Denies dyspnea Resp Denies chest congestion, Denies cough, Denies dyspnea and Denies wheezing GI Denies abdominal pain, Denies change in bowel habits and Denies heartburn Denies hematuria, Denies difficulty urinating, Denies dysuria and Denies urinary frequency Musc Denies myalgias, Denies arthralgias and Denies muscle weakness Skin/Breast Denies lesions and Denies rash Neuro Denies dizziness, Denies headache(s) and Denies weakness Psych Reports no additional complaints Endo Denies fatigue and Denies palpitations Adebayo/Lymph Denies easy bruising Aller/Immun Denies seasonal rhinorrhea and Denies wheezing Physical exam (Primary Care) Vital Signs: Last Vital Signs Pulse 60 08/20/23 12:28 BP 100/60 08/20/23 12:28 Pulse Ox 95 08/20/23 12:28 Oxygen Delivery Method Room Air 08/20/23 12:28 BMI result Body Mass Index 23.1 Tobacco/Smoking Status: Tobacco use Status Tobacco use date assessed 08/20/23 08/20/23 12:30 Patient Tobacco Use Status Current someday Tobacco 08/20/23 12:30 Tobacco use type Cigarette 08/20/23 12:30 e-Cigarette/Vaping Use Never Used 08/20/23 12:30 Thrive Assessment: Date of Thrive Assessment Date Thrive assessed 03/02/23 08/20/23 12:30 Const General: comfortable and no acute distress Nutritional Appearance: average body habitus Orientation/consciousness: patient oriented x3 HENMT Head: Yes normocephalic Ears: external ears normal, TM's normal bilaterally and EAC's normal General nose exam: Normal external nose present Face and sinus: Yes face symmetric Mouth: oropharynx normal and moist mucous membranes Eyes General: appearance normal, both eyes and all related structures Sclerae: sclerae normal Pupils: Equal, round and reactive pupils present EOM: EOMs intact bilaterally Direct Ophthalmoscopy: normal light reflex Neck Neck: Yes full ROM, Yes no lymphadenopathy and Yes supple Thyroid: Thyroid normal Chest Chest palpation & inspection: normal inspection of the chest Resp Effort & Inspection: normal respiratory effort and able to speak in complete sentences Auscultation: clear to auscultation bilaterally Percussion: percussion normal Cardio Rate: regular rate Rhythm: regular rhythm Heart sounds: S1 normal heart sound present and S2 normal heart sound present GI Inspection: Yes normal to inspection Palpation (GI): Soft to palpation, nontender, no guarding and no masses Auscultation: normal bowel sounds General: Yes no CVA tenderness Back/Spine/Pelvis Back: no CVA tenderness and No back tenderness Neuro General: patient oriented x3, gait normal, tone normal, moves all extremities, Normal light touch and pain sensation, no focal motor deficits and CN's II-XI intact bilaterally Cranial nerves: Yes Equal, round and reactive pupils present Cognition (Neuro): normal cognition Gait exam (Neuro): Normal gait present Psych Appearance: grossly normal and well kempt Mental Status: mental status grossly normal Speech and movement: Normal speech and movement present Affect: normal affect Attitude: cooperative Immunizations Boostrix Tdap 2.5 Lf unit-8 mcg-5 Lf/0.5 mL intramuscular syringe Performing Provider: Yuridia Riggins MD Performing Location: [facility] Administered by: Airam Curry CMA on 08/20/23 13:12 Dose Route Admin Location Dispensed Lot Number Expiration Date NDC Account Retention Representative 0.5 mL IM Right Deltoid 0.5 mL [id number] 07/31/25 [id number] [employer] VIS Given Date VIS Provided VIS Publication Date 08/20/23 Single Vaccine 21 Eligibility Eligibility Date Funding Source Not [facility] Eligible 08/20/23 Private Assessment and Plan Assessment & Plan (1) Normocytic normochromic anemia: Code(s): D64.9 - Anemia, unspecified Plan: CBC with differential ordered, awaiting appointment for colonoscopy procedure (2) Methadone use: Comment: Goes to [facility] in [place] Code(s): F11.90 - Opioid use, unspecified, uncomplicated Plan: Currently followed at methadone clinic, strongly advised to avoid all recreational drug use (3) Elevated liver transaminase level: Code(s): R74.01 - Elevation of levels of liver transaminase levels Plan: GI consult obtain, advised strongly to avoid any drug use (4) Annual visit for general adult medical examination with abnormal findings: Code(s): Z00.01 - Encounter for general adult medical examination with abnormal findings Plan: Will check appropriate labs. Recommended dental visit every 6 months and regular eye exams, at least every 2 years. . Instructed to do self-testicular exam to check for any mass.. Has been referred for colonoscopy to [facility], awaiting appointment for procedure. Tdap vaccine given today up-to-date with his COVID vaccination, flu shot Prevnar 20 and shingles vaccination (5) Hepatitis C antibody test positive: Code(s): R76.8 - Other specified abnormal immunological findings in serum Plan: Ordered hepatitis C viral load, and genotype, comprehensive metabolic panel, referred back to GI for further evaluation management (6) Impacted cerumen of both ears: Code(s): H61.23 - Impacted cerumen, bilateral Plan: Advised to use [id number] Debrox drops, if unsuccessful, schedule appointment for ear irrigation Orders: Orders Hepatitis C Genotype 08/20/23 R76.8 - Other specified abnormal immunological findings in serum, R74.01 - Elevation of levels of liver transaminase levels, Z00.01 - Encounter for general adult medical examination with abnormal findings, D64.9 - Anemia, unspecified, F11.90 - Opioid use, unspecified, uncomplicated, F19.90 - Other psychoactive substance use, unspecified, uncomplicated Comprehensive [place]. Panel Fast 08/20/23 R76.8 - Other specified abnormal immunological findings in serum, R74.01 - Elevation of levels of liver transaminase levels, D64.9 - Anemia, unspecified, F11.90 - Opioid use, unspecified, uncomplicated, F19.90 - Other psychoactive substance use, unspecified, uncomplicated Complete Blood Count Auto Diff 08/20/23 R76.8 - Other specified abnormal immunological findings in serum, R74.01 - Elevation of levels of liver transaminase levels, D64.9 - Anemia, unspecified, F11.90 - Opioid use, unspecified, uncomplicated, F19.90 - Other psychoactive substance use, unspecified, uncomplicated Lipid Panel 08/20/23 R76.8 - Other specified abnormal immunological findings in serum, R74.01 - Elevation of levels of liver transaminase levels, D64.9 - Anemia, unspecified, F11.90 - Opioid use, unspecified, uncomplicated, F19.90 - Other psychoactive substance use, unspecified, uncomplicated TDaP Immunization 08/20/23 Z23 - Encounter for immunization Hepatitis C Viral Load 08/20/23 R76.8 - Other specified abnormal immunological findings in serum, R74.01 - Elevation of levels of liver transaminase levels, D64.9 - Anemia, unspecified, F11.90 - Opioid use, unspecified, uncomplicated, F19.90 - Other psychoactive substance use, unspecified, uncomplicated Referrals Gastroenterology Referral R76.8 - Other specified abnormal immunological findings in serum, R74.01 - Elevation of levels of liver transaminase levels Coding Level of Care Code Est Pt Prev Care 40-64y(31029) Diagnoses Normocytic normochromic anemia D64.9 Methadone use F11.90 Elevated liver transaminase level R74.01 Annual visit for general adult medical examination with abnormal findings Z00.01 Hepatitis C antibody test positive R76.8 Impacted cerumen of both ears H61.23
== END 2023-08-20 13:16 | disposition home or self-care (01) ==
PROVIDERS: PCP Internal Medicine; Visit Provider Internal Medicine
DX: Z00.00 Encounter for general adult medical examination without abnormal findings (principal); D64.9 Anemia, unspecified; F11.90 Opioid use, unspecified, uncomplicated; R74.01 Elevation of levels of liver transaminase levels; R76.8 Other specified abnormal immunological findings in serum; H61.23 Impacted cerumen, bilateral
CPT/HCPCS: 90471; 90715; 99396

== ENCOUNTER 2024-01-10 09:31 | Outpatient (REF) | payer MEDICARE, MEDICAID, SELFPAY ==
[2024-01-10 13:26] LABS: MANUAL DIFF FLAG NO
[2024-01-10 13:46] LABS: Basophils Absolute Auto 0.1 X10*3/uL (0.0-0.2); Eosinophils Absolute Auto 0.4 X10*3/uL (0.0-0.4); Eosinophils Percent Auto 6.3 % (0-4); Hematocrit 39.9 % (42.0-52.0); Hemoglobin 13.5 g/dl (14.0-18.0); Imm Gran Abs Auto 0.02 X10*3/uL (0.00-0.03); Imm Gran Pct Auto 0.3 % (0.0-0.4); Lymphocytes Absolute Auto 1.5 X10*3/uL (1.2-4.9); Lymphocytes Percent Auto 25.3 % (20-40); Mean Corpuscular HGB Conc 33.8 g/dl (31.0-36.0); Mean Corpuscular Hemoglobin 29.8 pg (27.0-33.0); Mean Corpuscular Volume 88.1 fL (80.0-98.0); Mean Platelet Volume 9.4 fL (9.4-12.4); Monocytes Absolute Auto 0.9 X10*3/uL (0.1-1.2); Monocytes Percent Auto 14.4 % (2-11); Neutrophils Absolute Auto 3.1 x10*3/uL (2.0-8.3); Neutrophils Percent Auto 52.7 % (45-73); Platelet Count 227 X10*3/uL (160-400); Red Blood Count 4.53 X10*6/uL (4.60-5.80); Red Cell Distribution Width 12.4 % (11.0-16.0); White Blood Count 5.9 X10*3/uL (4.8-10.8)
[2024-01-10 13:59] LABS: Alanine Aminotransferase 132 U/L (0-40); Albumin Level 3.9 g/dL (3.5-5.0); Alkaline Phosphatase 76 U/L (39-117); Anion Gap 14 (12-20); Aspartate Amino Transferase 129 U/L (5-37); Bilirubin Total 0.3 mg/dL (0.0-1.0); Blood Urea Nitrogen 18 mg/dL (9-16); Calcium 9.2 mg/dL (8.4-10.2); Carbon Dioxide 27 mmol/L (22-29); Chloride 100 mmol/L (96-108); Cholesterol 163 mg/dL (<200); Estimated Glomerular Filt Rate > 60; Glucose Fasting 89 mg/dL (60-99); HDL Cholesterol 67 mg/dL (>40); LDL Cholesterol Calculated 87 mg/dL (<100); Potassium 4.1 mmol/L (3.3-5.1); Sodium 137 mmol/L (135-145); Total Protein 7.7 g/dL (6.5-8.0); Triglycerides 45 mg/dL (<150)
[2024-01-13 14:58] LABS: HCV RNA PCR Qn 3780000 IU/mL (NOT DETECTED); HCV RNA PCR Qn 6.58 Log IU/mL (NOT DETECTED)
[2024-01-18 16:03] LABS: HCV Genotype LiPA 1a
== END 2024-01-10 09:32 | disposition home or self-care (01) ==
LOC: HO.HMGCLDS 09:31
PROVIDERS: PCP Internal Medicine; Visit Provider Internal Medicine
DX: Z00.01 Encounter for general adult medical examination with abnormal findings (principal); R76.8 Other specified abnormal immunological findings in serum; R74.01 Elevation of levels of liver transaminase levels; F11.90 Opioid use, unspecified, uncomplicated; F19.90 Other psychoactive substance use, unspecified, uncomplicated; D64.9 Anemia, unspecified
CPT/HCPCS: 36415; 80053; 80061; 85025; 87522; 87902

== ENCOUNTER 2024-11-06 10:07 | Outpatient (AMB) | payer MEDICARE, MEDICAID, SELFPAY ==
--- NOTE | 2024-11-06 10:09 | MHC.OFFWIV ---
Intake Vital Signs 11/06/24 10:20 Weight 153 lb BP 120/80 Blood Pressure Location Rt brachial Position Sitting Pulse 79 Pulse Source Pulse Oximeter Pulse Oximetry (%) 93 Oxygen Delivery Method Room Air Intake Visit Reasons: EP back pain 2 weeks Intake Note: Patient here for lower back pain that radiates up the back and has been present for about 2 weeks. Patient Tobacco Use Status: Current someday Tobacco user Allergies No Known Allergies Allergy (Verified 11/06/24 10:21) Do you need a note to return to daycare/school/sports/work: No HPI HPI Comments History of Present Illness Details This is a 54-year-old male who presents to the walk-in clinic complaining of left-sided low back pain x 2 weeks. Patient states his pain started after he was outside chipping some ice but he otherwise denies any trauma/injury. He denies any bowel/urinary retention/incontinence. He denies any numbness/weakness/paresthesias of his lower extremities. He denies any saddle anesthesias. He denies any fevers or chills. PFSH Medical History Hepatitis C antibody test positive History of colon polyps Elevated liver transaminase level Normocytic normochromic anemia Methadone use History of septic arthritis IVDU (intravenous drug user) Surgical History Hx of hernia repair Family History (Updated 08/20/23 @ 12:30 by Airam Curry CMA) Mother Cirrhosis of liver Father Lung cancer Maternal Grandfather Colon cancer Social History Housing: House Alcohol intake: never Patient Tobacco Use Status: Current someday Tobacco user Tobacco use type: Cigarette Cigarettes Per Day: 2 e-Cigarette/Vaping Use: Never Used Substance Use Type: Crack/Cocaine and Marijuana service: No Current occupational status: employed Current occupation: home health care Current occupational exposures/hazards: No Cognitive needs: No Hearing needs: No Vision needs: Yes (reading glasses) Review of Systems Const All systems reviewed & are unremarkable except as noted in HPI and below Reports no additional complaints Eyes Reports no additional complaints ENT Reports no additional complaints Card Reports no additional complaints Resp Reports no additional complaints GI Reports no additional complaints Reports no additional complaints Musc Reports no additional complaints Skin/Breast Reports system reviewed and no additional complaints, except as documented Neuro Reports no additional complaints Psych Reports no additional complaints Endo Reports no additional complaints Adebayo/Lymph Reports no additional complaints Aller/Immun Reports no additional complaints Physical Exam Const Other: Vital signs reviewed. Constitutional: Non-toxic appearing. No acute distress. Well-developed and well-nourished. HEENT: Normocephalic and atraumatic. Skin: Warm and dry. No rashes or lesions noted. Neck: Full and painless range of motion. No cervical lymphadenopathy. Cardio: Regular rate. No lower extremity edema. No JVD. Pulmonary: No respiratory distress. No accessory muscle usage. Gastrointestinal: Soft, nontender, and nondistended in all 4 quadrants. Genitourinary: No CVA tenderness. Musculoskeletal: He has mild tenderness to palpation and muscle spasms of the left lumbar paraspinal musculature. There is no midline or spinous process tenderness to palpation. He has negative straight leg raise test bilaterally. Neuro: Alert and oriented x4. Cranial nerves 2-12 grossly intact. No focal deficits appreciated. Psych: Normal mood and affect. Assessment & Plan Assessment & Plan (1) Low back pain: Code(s): M54.50 - Low back pain, unspecified Qualifiers: Back pain laterality: left Chronicity: acute Sciatica presence: without sciatica Qualified Code(s): M54.50 - Low back pain, unspecified Plan: This is a 54-year-old male who presents to the walk-in clinic complaining of left-sided low back pain x 2 weeks. On physical examination, the patient has mild tenderness to palpation and muscle spasms in the left lumbar paraspinal musculature without midline or spinous process tenderness to palpation negative straight leg raise. Patient likely has sprain/strain versus spasm of lumbar paraspinal musculature. He was given a prescription for PO cyclobenzaprine 10 mg 3 times daily as needed for muscle spasm and PO meloxicam 15 mg daily x7 days. I also recommended supportive management such as rest/activity modification, ice/heat to the area, and [id number] lidocaine patches. He can also continue with acetaminophen for breakthrough pain. He was advised to proceed directly to the emergency room if he were to develop any bowel/bladder incontinence/retention, numbness/weakness/paresthesias his extremities, saddle anesthesias, fever/chills. Patient verbalizes understanding and is in agreement with the plan. Medications: New cyclobenzaprine 10 mg PO TID PRN 14 tabs 0RF muscle spasm meloxicam 15 mg PO DAILY 7 tabs 0RF Coding Level of Care Code Est Pt Level 3 (89498) Diagnoses Acute left-sided low back pain without sciatica M54.50 Back pain laterality: left Chronicity: acute Sciatica presence: without sciatica
[2024-11-06 10:20] VITALS: BP 120/80; PULSE 79; O2SAT 93
--- OUTSIDE RECORDS SUMMARY | 2024-11-06 11:21 | XMS_ITS | Clinical Summary ---
Author Organization [address] [facility] Address [address] [place] [address] Phone Care Team Providers Care Loan Representative Name Role Phone Unavailable Primary Care Provider Unavailabl e Encounters Date Type Department Care Team Description 08/14/2024 Lab Requisition [facility] - Main Lab [address] [facility] [place] [address] Sabrina Yang MD Encounter for screening for infections with a predominantly sexual mode of transmission; Opioid dependence, uncomplicated (CMS/HCC) from Last 3 Months Social History Tobacco Use Types Packs/Day Years Used Date Smoking Tobacco: Never Assessed Sex and Gender Information Value Date Recorded Sex Assigned at Not on file Legal Sex Male 12:06 AM EST Gender Identity Not on file Sexual Orientation Not on file Plan of Treatment Health Maintenance Due Date Last Done Comments DTaP,Tdap,and Td Vaccines (1 - Tdap) 1990 Hepatitis B Vaccines (1 of 3 - 19+ 3-dose series) 1990 Pneumococcal Vaccine: 50+ Ye ars (1 of 1 - PCV) 2021 Zoster Vaccines (1 of 2) 2021 Cholesterol Screening (Lipid Panel) 07/29/2022 Colorectal Cancer Screening: Colonoscopy 07/29/2022 Depression Screening 07/29/2022 Medicare Annual Wellness Visit 07/29/2022 Social Influencers of Health Screening 07/29/2022 COVID-19 Vaccine ( - 2023-2 5 season) 2024 Influenza Vaccine (#1) 2024 HIV Screening Completed 08/14/2024 Hepatitis C Screening Completed 08/14/2024 HIB Vaccines Aged Out No longer eligi ble based on patient's age to complete this topic HPV Vaccines Aged Out No longer eligi ble based on patient's age to complete this topic Hepatitis A Vaccines Aged Out No long er eligible based on patient's age to complete this topic IPV Vaccines Aged Out No longer eligi ble based on patient's age to complete this topic MMR Vaccines Aged Out No longer eligi ble based on patient's age to complete this topic Meningococcal ACWY Vaccine Aged Out N o longer eligible based on patient's age to complete this topic Meningococcal B Vacine Aged Out No lo nger eligible based on patient's age to complete this topic Pneumococcal Vaccine: Pediat rics (0 to 5 Years) and At-Risk Patients (6 to 64 Years) Aged Out No longer eligi ble based on patient's age to complete this topic RSV Immunization Patients Un brittany 20 months Aged Out No longer eligible b ased on patient's age to complete this topic Varicella Vaccines Aged Out No longer eligible based on patient's age to complete this topic Procedures Procedure Name Priority Date/Time Associated Diagnosis Comments AST, ALT, BILIRUBIN ELR STATE REPORTABLES Routine 08/14/2024 8:45 AM EST Encounter for screening for infections with a predominantly sexual mode of transmission Opioid dependence, uncomplicated (CMS/HCC) HEPATITIS A ANTIBODY IGM Routine 08/14/2024 8:45 AM EST Encounter for screening for infections with a predominantly sexual mode of transmission Opioid dependence, uncomplicated (CMS/HCC) HEPATITIS A ANTIBODY TOTAL WITH REFLEX IGM Routine 08/14/2024 8:45 AM EST Encounter for screening for infections with a predominantly sexual mode of transmission Opioid dependence, uncomplicated (CMS/HCC) HIV 1, 2 ANTIBODY, P24 ANTIGEN WITH REFLEX TO DIFFERENTIATION Routine 08/14/2024 8:45 AM EST Encounter for screening for infections with a predominantly sexual mode of transmission Opioid dependence, uncomplicated (CMS/HCC) HEPATITIS B CORE ANTIBODY, TOTAL Routine 08/14/2024 8:45 AM EST Encounter for screening for infections with a predominantly sexual mode of transmission Opioid dependence, uncomplicated (CMS/HCC) HEPATITIS B SURFACE ANTIGEN WITH CONFIRMATION Routine 08/14/2024 8:45 AM EST Encounter for screening for infections with a predominantly sexual mode of transmission Opioid dependence, uncomplicated (CMS/HCC) HEPATITIS B SURFACE ANTIBODY Routine 08/14/2024 8:45 AM EST Encounter for screening for infections with a predominantly sexual mode of transmission Opioid dependence, uncomplicated (CMS/HCC) TREPONEMA PALLIDUM ANTIBODY WITH REFLEX TO RPR AND PARTICLE AGGLUTINATION Routine 08/14/2024 8:45 AM EST Encounter for screening for infections with a predominantly sexual mode of transmission Opioid dependence, uncomplicated (CMS/HCC) HEPATITIS C VIRUS QUANTITATIVE PCR Routine 08/14/2024 8:45 AM EST Encounter for screening for infections with a predominantly sexual mode of transmission Opioid dependence, uncomplicated (CMS/HCC) COMPREHENSIVE METABOLIC PANEL Routine 08/14/2024 8:45 AM EST Encounter for screening for infections with a predominantly sexual mode of transmission Opioid dependence, uncomplicated (CMS/HCC) COMPLETE BLOOD COUNT Routine 08/14/2024 8:45 AM EST Encounter for screening for infections with a predominantly sexual mode of transmission Opioid dependence, uncomplicated (CMS/HCC) from Last 3 Months Results * HIV 1,2 antibody, p24 antigen with reflex to differentiation (08/14/2024 8:45 AM EST) HIV Combo AB/AG Negative Negative LAB CHEMISTRY METHOD 08/14/2024 4:33 PM EST [facility] Blood Venous blood specimen / Unknown 08/14/2024 8:45 AM EST 08/14/2024 2:11 PM EST Narrative [facility] - 08/14/2024 4:33 PM EST This assay is a 4th generation assay allowing for earlier detection of HIV infection by detecting the presence of the HIV-1 p24 antigen as well as the traditional antibodies to HIV type 1 (including group O) and type 2. ??Use of a 4th generation assay is the current CDC recommendation for HIV screening. us Sabrina Yang MD LAB BLOOD ORDERABLES Fi nal Result [facility] [address] [place] [address], [place] [phone] * Hepatitis B surface antigen with reflex to confirmation (08/14/2024 8:45 AM EST) Pathologist [facility] [place] Hepatitis B Surface Ag Negative Negative LAB CHEMISTRY METHOD 08/14/2024 4:04 PM EST [facility] Blood Venous blood specimen / Unknown 08/14/2024 8:45 AM EST 08/14/2024 2:11 PM EST Narrative [facility] - 08/14/2024 4:04 PM EST Over the counter supplements containing high doses of biotin may interfere with this assay. ??If interference is suspected, patients shoud be retested after refraining from biotin supplements for 72 hours. Sabrina Yang MD LAB BLOOD ORDERABLES Fi nal Result Performing Organization Address [facility]/ZIP Co de Phone Number [facility] [address] [place] [address], [place] [phone] * AST, ALT, Bilirubin ELR state reportables (08/14/2024 8:45 AM EST) [facility] ALT (SGPT) 21 10 - 60 unit/L LAB CHEMISTRY METHOD 08/18/2024 2:00 PM EST [facility] AST (SGOT) 25 10 - 42 unit/L LAB CHEMISTRY METHOD 08/18/2024 2:00 PM EST [facility] Total Bilirubin 0.2 0.0 - 1.4 mg/dL LAB CHEMISTRY METHOD 08/18/2024 2:00 PM EST [facility] Blood Venous blood specimen / Unknown 08/14/2024 8:45 AM EST 08/14/2024 2:11 PM EST Sabrina Yang MD LAB BLOOD ORDERABLES Fi nal Result Performing Organization Address City/[facility]/ZIP Co de Phone Number [facility] [address] [place] [address], [place] [phone] * Treponema pallidum antibody with reflex to RPR and particle agglutination (08/14/2024 8:45 AM EST) [facility] T. Pallidum Antibodies Negative Negative LAB CHEMISTRY METHOD 08/14/2024 4:04 PM EST [facility] Blood Venous blood specimen / Unknown 08/14/2024 8:45 AM EST 08/14/2024 2:11 PM EST Sabrina Yang MD LAB BLOOD ORDERABLES Fi nal Result Performing Organization Address [facility] Co de Phone Number [facility] [address] [place] [address], [place] [phone] * Hepatitis A antibody total with reflex IgM (08/14/2024 8:45 AM EST) [facility] Hep A Total Ab Negative Negative LAB CHEMISTRY METHOD 08/14/2024 4:38 PM EST [facility] Blood Venous blood specimen / Unknown 08/14/2024 8:45 AM EST 08/14/2024 2:11 PM EST Narrative [facility] - 08/14/2024 4:38 PM EST Over the counter supplements containing high doses of biotin may interfere with this assay. ??If interference is suspected, patients shoud be retested after refraining from biotin supplements for 72 hours. us Sabrina Yang MD LAB BLOOD ORDERABLES Fi nal Result Performing Organization Address City/[facility]/ZIP Co de Phone Number [facility] [address] [place] [address], [place] [phone] * (ABNORMAL) Hepatitis C virus quantitative molecular study (08/14/2024 8:45 AM EST) [facility] HCV Qual Interp Detected (A) Not Detected LAB MOLECULAR DIAGNOSTICS METHOD 08/18/2024 10:23 AM EST [facility] HCV RNA Quantitative <12 <12 I Unit/mL LAB MOLECULAR DIAGNOSTICS METHOD 08/18/2024 10:23 AM EST [facility] Comment:HCV RNA detected but below the limit of quantitation. Unable to report quantitative results <12 IU/mL. HCV RNA Quantitative Log <1.08 <1.08 Log IU/mL LAB MOLECULAR DIAGNOSTICS METHOD 08/18/2024 10:23 AM EST [facility] Blood Venous blood specimen / Unknown 08/14/2024 8:45 AM EST 08/14/2024 2:11 PM EST Sabrina Yang MD LAB BLOOD ORDERABLES Fi nal Result Performing Organization Address [facility]/ZIP Co de Phone Number [facility] [address] [place] [address], [place] [phone] * Hepatitis A antibody IgM (08/14/2024 8:45 AM EST) Hepatitis A Antibody IgM Negative Negative LAB CHEMISTRY METHOD 08/14/2024 4:40 PM EST [facility] Blood Venous blood specimen / Unknown 08/14/2024 8:45 AM EST 08/14/2024 2:11 PM EST Narrative [facility] - 08/14/2024 4:40 PM EST Over the counter supplements containing high doses of biotin may interfere with this assay. ??If interference is suspected, patients shoud be retested after refraining from biotin supplements for 72 hours. us Sabrina Yang MD LAB BLOOD ORDERABLES Fi nal Result Performing Organization Address City/[facility]/ZIP Co de Phone Number [facility] [address] [place] [address], [place] [phone] * Hepatitis B core antibody, total (08/14/2024 8:45 AM EST) Hep B Core Total Ab Negative Negative LAB CHEMISTRY METHOD 08/14/2024 4:39 PM EST [facility] Blood Venous blood specimen / Unknown 08/14/2024 8:45 AM EST 08/14/2024 2:11 PM EST Sabrina Yang MD LAB BLOOD ORDERABLES Fi nal Result Performing Organization Address City/[facility]/ZIP Co de Phone Number [facility] [address] [place] [address], [place] [phone] * Hepatitis B surface antibody (08/14/2024 8:45 AM EST) Hepatitis B Surface Ab Negative Negative LAB CHEMISTRY METHOD 08/14/2024 3:54 PM EST [facility] Hepatitis B Surface Ab Quantitative <3.1 mIU/mL LAB CHEMISTRY METHOD 08/14/2024 3:54 PM EST [facility] Blood Venous blood specimen / Unknown 08/14/2024 8:45 AM EST 08/14/2024 2:11 PM EST Narrative [facility] - 08/14/2024 3:54 PM EST >=10 mIU/mL is considered to be consistent with immunity. Sabrina Yang MD LAB BLOOD ORDERABLES Fi nal Result Performing Organization Address City/[facility]/ZIP Co de Phone Number [facility] [address] [place] [address], [place] [phone] * Complete blood count (08/14/2024 8:45 AM EST) WBC 6.6 4.8 - 10.8 K/mcL LAB HEMETOLOGY METHOD 08/14/2024 2:17 PM EST [facility] RBC 4.80 4.50 - 5.50 M/mcL LAB HEMETOLOGY METHOD 08/14/2024 2:17 PM EST [facility] Hemoglobin 14.0 13.5 - 17.5 g/dL LAB HEMETOLOGY METHOD 08/14/2024 2:17 PM [facility] Hematocrit 42.5 42.0 - 54.0 % LAB HEMETOLOGY METHOD 08/14/2024 2:17 PM [facility] MCV 88.9 79.0 - 98.0 FL LAB HEMETOLOGY METHOD 08/14/2024 2:17 PM [facility] MCH 29.3 27.0 - 32.0 pcg LAB HEMETOLOGY METHOD 08/14/2024 2:17 PM EST [facility] MCHC 32.9 32.0 - 37.0 g/dL LAB HEMETOLOGY METHOD 08/14/2024 2:17 PM [facility] RDW 12.3 11.0 - 15.0 % LAB HEMETOLOGY METHOD 08/14/2024 2:17 PM EST [facility] Platelets 216 130 - 400 K/mcL LAB HEMETOLOGY METHOD 08/14/2024 2:17 PM [facility] MPV 9.4 7.0 - 11.0 FL LAB HEMETOLOGY METHOD 08/14/2024 2:17 PM [facility] NRBC 0.0 <1.0 % LAB HEMETOLOGY METHOD 08/14/2024 2:17 PM [facility] NRBC Absolute 0.00 <0.10 K/mcL LAB HEMETOLOGY METHOD 08/14/2024 2:17 PM [facility] Blood Venous blood specimen / Unknown 08/14/2024 8:45 AM EST 08/14/2024 2:11 PM EST us Sabrina Yang MD LAB BLOOD ORDERABLES Fi nal Result [facility] [address] [place] [address], [place] [phone] * Comprehensive metabolic panel (08/14/2024 8:45 AM EST) Sodium 139 133 - 145 mmol/L LAB CHEMISTRY METHOD 08/14/2024 3:47 PM [facility] Potassium 5.1 3.5 - 5.5 mmol/L LAB CHEMISTRY METHOD 08/14/2024 3:47 PM [facility] Chloride 105 96 - 110 mmol/L LAB CHEMISTRY METHOD 08/14/2024 3:47 PM [facility] CO2 30 21 - 32 mmol/L LAB CHEMISTRY METHOD 08/14/2024 3:47 PM [facility] Anion Gap 4 3 - 11 LAB CHEMISTRY METHOD 08/14/2024 3:47 PM [facility] Glucose 92 70 - 100 mg/dL LAB CHEMISTRY METHOD 08/14/2024 3:47 PM [facility] BUN 20 5 - 25 mg/dL LAB CHEMISTRY METHOD 08/14/2024 3:47 PM [facility] Creatinine 0.80 0.70 - 1.30 mg/dL LAB CHEMISTRY METHOD 08/14/2024 3:47 PM [facility] eGFR 106 >=60 mL/min/1. 73m2 LAB CHEMISTRY METHOD 08/14/2024 3:47 PM [facility] Comment:Calculation based on the??Chronic Kidney Disease Epidemiology Collaboration (CKD-EPI) equation refit??without adjustment for race. BUN/Creatinine Ratio 25.0 LAB CHEMISTRY METHOD 08/14/2024 3:47 PM [facility] Calcium 9.2 8.5 - 10.5 mg/dL LAB CHEMISTRY METHOD 08/14/2024 3:47 PM [facility] AST (SGOT) 25 10 - 42 unit/L LAB CHEMISTRY METHOD 08/14/2024 3:47 PM [facility] ALT (SGPT) 21 10 - 60 unit/L LAB CHEMISTRY METHOD 08/14/2024 3:47 PM EST [facility] Alkaline Phosphatase 90 42 - 121 unit/L LAB CHEMISTRY METHOD 08/14/2024 3:47 PM [facility] Total Protein 7.6 6.0 - 8.0 g/dL LAB CHEMISTRY METHOD 08/14/2024 3:47 PM EST [facility] Albumin 3.7 3.2 - 5.0 g/dL LAB CHEMISTRY METHOD 08/14/2024 3:47 PM [facility] Total Bilirubin 0.2 0.0 - 1.4 mg/dL LAB CHEMISTRY METHOD 08/14/2024 3:47 PM [facility] Blood Venous blood specimen / Unknown 08/14/2024 8:45 AM EST 08/14/2024 2:11 PM EST Sabrina Yang MD LAB BLOOD ORDERABLES Fi nal Result [facility] [address] [place] [address], from Last 3 Months Insurance [address] [place] [address] MEDICARE [place]
--- OUTSIDE RECORDS SUMMARY | 2024-11-06 11:21 | XMS_ITS | Encounter Summary ---
Author Organization [facility] Address [address] [place] [address] Care Team Providers Care Proposal Lead Writer Name Role Phone Unavailable Primary Care Provider Unavailabl e Encounter Details Date Type Department Care Team (Late st Contact Info) Description 08/14/2024 Lab Requisition [facility] - Main Lab [address] [facility] [place] [address] Sabrina Yang MD [address] [place] [address] Encounter for screening for infections with a predominantly sexual mode of transmission; Opioid dependence, uncomplicated (CMS/HCC) Social History Tobacco Use Types Packs/Day Years Used Date Smoking Tobacco: Never Assessed Sex and Gender Information Value Date Recorded Sex Assigned at Not on file Legal Sex Male 12:06 AM EST Gender Identity Not on file Sexual Orientation Not on file documented as of this encounter Plan of Treatment Not on file documented as of this encounter Procedures Procedure Name Priority Date/Time Associated Diagnosis Comments HIV 1, 2 ANTIBODY, P24 ANTIGEN WITH REFLEX TO DIFFERENTIATION Routine 08/14/2024 8:45 AM EST Encounter for screening for infections with a predominantly sexual mode of transmission Opioid dependence, uncomplicated (CMS/HCC) HEPATITIS B SURFACE ANTIGEN WITH CONFIRMATION Routine 08/14/2024 8:45 AM EST Encounter for screening for infections with a predominantly sexual mode of transmission Opioid dependence, uncomplicated (CMS/HCC) AST, ALT, BILIRUBIN ELR STATE REPORTABLES Routine [...] mode of transmission Opioid dependence, uncomplicated (CMS/HCC) documented in this encounter Results * AST, ALT, Bilirubin ELR state reportables (08/14/2024 8:45 AM EST) ALT (SGPT) 21 10 - 60 unit/L LAB CHEMISTRY METHOD 08/18/2024 2:00 PM EST [facility] AST (SGOT) 25 10 - 42 unit/L LAB CHEMISTRY METHOD 08/18/2024 2:00 PM EST [facility] Total Bilirubin 0.2 0.0 - 1.4 mg/dL LAB CHEMISTRY METHOD 08/18/2024 2:00 PM EST [facility] Blood Venous blood specimen / Unknown 08/14/2024 8:45 AM EST 08/14/2024 2:11 PM EST Sabrina Yang MD LAB BLOOD ORDERABLES Fi nal Result Performing Organization Address [facility] de Phone Number [facility] [address] [place] [address], [place] [phone] * Hepatitis A antibody IgM (08/14/2024 8:45 AM EST) Hepatitis A Antibody IgM Negative Negative LAB CHEMISTRY METHOD 08/14/2024 4:40 PM EST [facility] Blood Venous blood specimen / Unknown 08/14/2024 8:45 AM EST 08/14/2024 2:11 PM EST Narrative [facility] - 08/14/2024 4:40 PM EST Over the counter supplements containing high doses of biotin may interfere with this assay. ??If interference is suspected, patients shoud be retested after refraining from biotin supplements for 72 hours. Sabrina Yang MD LAB BLOOD ORDERABLES Fi nal Result Performing Organization Address [facility] de Phone Number [facility] [address] [place] [address], * Hepatitis A antibody total with reflex IgM (08/14/2024 8:45 AM EST) Hep A Total Ab Negative Negative LAB CHEMISTRY METHOD 08/14/2024 4:38 PM EST [facility] Blood Venous blood specimen / Unknown 08/14/2024 8:45 AM EST 08/14/2024 2:11 PM EST Narrative [facility] - 08/14/2024 4:38 PM EST Over the counter supplements containing high doses of biotin may interfere with this assay. ??If interference is suspected, patients shoud be retested after refraining from biotin supplements for 72 hours. us Sabrina Yang MD LAB BLOOD ORDERABLES Fi nal Result Performing Organization Address [facility] de Phone Number [facility] [address] [place] [address], * HIV 1,2 antibody, p24 antigen with reflex to differentiation (08/14/2024 8:45 AM EST) HIV Combo AB/AG Negative Negative LAB CHEMISTRY METHOD 08/14/2024 4:33 PM EST [facility] Blood Venous blood specimen / Unknown 08/14/2024 8:45 AM EST 08/14/2024 2:11 PM EST Narrative [facility] - 08/14/2024 4:33 PM EST This assay is a 4th generation assay allowing for earlier detection of HIV infection by detecting the presence of the HIV-1 p24 antigen as well as the traditional antibodies to HIV type 1 (including group O) and type 2. ??Use of a 4th generation assay is the current CDC recommendation for HIV screening. Sabrina Yang MD LAB BLOOD ORDERABLES Fi nal Result Performing Organization Address [facility] de Phone Number [facility] [address] [place] [address], [place] [phone] * Hepatitis B core antibody, total (08/14/2024 8:45 AM EST) Hep B Core Total Ab Negative Negative LAB CHEMISTRY METHOD 08/14/2024 4:39 PM EST [facility] Blood Venous blood specimen / Unknown 08/14/2024 8:45 AM EST 08/14/2024 2:11 PM EST Sabrina Yang MD LAB BLOOD ORDERABLES Fi nal Result Performing Organization Address [facility]/[employer]IP [employer] de Phone Number [facility] [address] [place] [address], * Hepatitis B surface antigen with reflex to confirmation (08/14/2024 8:45 AM EST) Hepatitis B Surface Ag Negative Negative LAB CHEMISTRY METHOD 08/14/2024 4:04 PM EST [facility] Blood Venous blood specimen / Unknown 08/14/2024 8:45 AM EST 08/14/2024 2:11 PM EST [facility] - 08/14/2024 4:04 PM EST Over the counter supplements containing high doses of biotin may interfere with this assay. ??If interference is suspected, patients shoud be retested after refraining from biotin supplements for 72 hours. Sabrina Yang MD LAB BLOOD ORDERABLES Fi nal Result Performing Organization Address [facility] Co de Phone Number [facility] [address] [place] [address], * Hepatitis B surface antibody (08/14/2024 8:45 AM EST) Hepatitis B Surface Ab Negative Negative LAB CHEMISTRY METHOD 08/14/2024 3:54 PM EST [facility] Hepatitis B Surface Ab Quantitative <3.1 mIU/mL LAB CHEMISTRY METHOD 08/14/2024 3:54 PM EST [facility] Blood Venous blood specimen / Unknown 08/14/2024 8:45 AM EST 08/14/2024 2:11 PM EST [facility] - 08/14/2024 3:54 PM EST >=10 mIU/mL is considered to be consistent with immunity. Sabrina Yang MD LAB BLOOD ORDERABLES Fi nal Result [facility] [address] [place] [address], [place] [phone] * Treponema pallidum antibody with reflex to RPR and particle agglutination (08/14/2024 8:45 AM EST) Pathologist [facility] T. Pallidum Antibodies Negative Negative LAB CHEMISTRY METHOD 08/14/2024 4:04 PM EST [facility] Blood Venous blood specimen / Unknown 08/14/2024 8:45 AM EST 08/14/2024 2:11 PM EST Sabrina Yang MD LAB BLOOD ORDERABLES Fi nal Result Performing Organization Address [facility]/ZIP Co de Phone Number [facility] [address] [place] [address], [place] [phone] * (ABNORMAL) Hepatitis C virus quantitative molecular study (08/14/2024 8:45 AM EST) [facility] HCV Qual Interp Detected (A) Not Detected LAB MOLECULAR DIAGNOSTICS METHOD 08/18/2024 10:23 AM EST [facility] HCV RNA Quantitative <12 <12 I Unit/mL LAB MOLECULAR DIAGNOSTICS METHOD 08/18/2024 10:23 AM [facility] Comment:HCV RNA detected but below the limit of quantitation. Unable to report quantitative results <12 IU/mL. HCV RNA Quantitative Log <1.08 <1.08 Log IU/mL LAB MOLECULAR DIAGNOSTICS METHOD 08/18/2024 10:23 AM EST [facility] Blood Venous blood specimen / Unknown 08/14/2024 8:45 AM EST 08/14/2024 2:11 PM EST us Sabrina Yang MD LAB BLOOD ORDERABLES Fi nal Result [facility] [address] [place] [address], [place] [phone] * Comprehensive metabolic panel (08/14/2024 8:45 AM EST) Sodium 139 133 - 145 mmol/L LAB CHEMISTRY METHOD 08/14/2024 3:47 PM [facility] Potassium 5.1 3.5 - 5.5 mmol/L LAB CHEMISTRY METHOD 08/14/2024 3:47 PM [facility] Chloride 105 96 - 110 mmol/L LAB CHEMISTRY METHOD 08/14/2024 3:47 PM [facility] CO2 30 21 - 32 mmol/L LAB CHEMISTRY METHOD 08/14/2024 3:47 PM [facility] Anion Gap 4 3 - 11 LAB CHEMISTRY METHOD 08/14/2024 3:47 PM [facility] Glucose 92 70 - 100 mg/dL LAB CHEMISTRY METHOD 08/14/2024 3:47 PM [facility] BUN 20 5 - 25 mg/dL LAB CHEMISTRY METHOD 08/14/2024 3:47 PM [facility] Creatinine 0.80 0.70 - 1.30 mg/dL LAB CHEMISTRY METHOD 08/14/2024 3:47 PM [facility] eGFR 106 >=60 mL/min/1. 73m2 LAB CHEMISTRY METHOD 08/14/2024 3:47 PM [facility] Comment:Calculation based on the??Chronic Kidney Disease Epidemiology Collaboration (CKD-EPI) equation refit??without adjustment for race. BUN/Creatinine Ratio 25.0 LAB CHEMISTRY METHOD 08/14/2024 3:47 PM [facility] Calcium 9.2 8.5 - 10.5 mg/dL LAB CHEMISTRY METHOD 08/14/2024 3:47 PM [facility] AST (SGOT) 25 10 - 42 unit/L LAB CHEMISTRY METHOD 08/14/2024 3:47 PM [facility] ALT (SGPT) 21 10 - 60 unit/L LAB CHEMISTRY METHOD 08/14/2024 3:47 PM [facility] Alkaline Phosphatase 90 42 - 121 unit/L LAB CHEMISTRY METHOD 08/14/2024 3:47 PM [facility] Total Protein 7.6 6.0 - 8.0 g/dL LAB CHEMISTRY METHOD 08/14/2024 3:47 PM [facility] Albumin 3.7 3.2 - 5.0 g/dL LAB CHEMISTRY METHOD 08/14/2024 3:47 PM [facility] Total Bilirubin 0.2 0.0 - 1.4 mg/dL LAB CHEMISTRY METHOD 08/14/2024 3:47 PM [facility] Blood Venous blood specimen / Unknown 08/14/2024 8:45 AM EST 08/14/2024 2:11 PM EST us Sabrina Yang MD LAB BLOOD ORDERABLES Fi nal Result [facility] [address] [place] [address], * Complete blood count (08/14/2024 8:45 AM EST) WBC 6.6 4.8 - 10.8 K/mcL LAB HEMETOLOGY METHOD 08/14/2024 2:17 PM [facility] RBC 4.80 4.50 - 5.50 M/mcL LAB HEMETOLOGY METHOD 08/14/2024 2:17 PM [facility] Hemoglobin 14.0 13.5 - 17.5 g/dL LAB HEMETOLOGY METHOD 08/14/2024 2:17 PM [facility] Hematocrit 42.5 42.0 - 54.0 % LAB HEMETOLOGY METHOD 08/14/2024 2:17 PM [facility] MCV 88.9 79.0 - 98.0 FL LAB HEMETOLOGY METHOD 08/14/2024 2:17 PM EST [facility] MCH 29.3 27.0 - 32.0 pcg LAB HEMETOLOGY METHOD 08/14/2024 2:17 PM [facility] MCHC 32.9 32.0 - 37.0 g/dL LAB HEMETOLOGY METHOD 08/14/2024 2:17 PM EST [facility] RDW 12.3 11.0 - 15.0 % LAB HEMETOLOGY METHOD 08/14/2024 2:17 PM [facility] Platelets 216 130 - 400 K/mcL LAB HEMETOLOGY METHOD 08/14/2024 2:17 PM [facility] MPV 9.4 7.0 - 11.0 FL LAB HEMETOLOGY METHOD 08/14/2024 2:17 PM [facility] NRBC 0.0 <1.0 % LAB HEMETOLOGY METHOD 08/14/2024 2:17 PM [facility] NRBC Absolute 0.00 <0.10 K/mcL LAB HEMETOLOGY METHOD 08/14/2024 2:17 PM [facility] Blood Venous blood specimen / Unknown 08/14/2024 8:45 AM EST 08/14/2024 2:11 PM EST us Sabrina Yang MD LAB BLOOD ORDERABLES Fi nal Result [facility] [address] [place] [address], documented in this encounter Visit Diagnoses Diagnosis Encounter for screening for infections with a predominantly sexual mode of transmission Opioid dependence, uncomplicated (CMS/HCC) documented in this encounter
== END 2024-11-06 11:27 | disposition home or self-care (01) ==
PROVIDERS: PCP Internal Medicine; Visit Provider Physician Assistant Medical
DX: M54.50 Low back pain, unspecified (principal)

== ENCOUNTER → 2024-11-06 10:07 | Outpatient (BNVA) | payer MEDICARE, MEDICAID, SELFPAY | PROVIDERS: PCP Internal Medicine; Visit Provider Physician Assistant Medical | DX: M54.50 Low back pain, unspecified (principal) | CPT/HCPCS: 99212 ==

== ENCOUNTER 2024-11-09 10:05 | Emergency (ER) | payer MEDICARE, MEDICAID, SELFPAY ==
--- NOTE | ~2024-11-09 | MR_ITS ---
EXAMINATION: MR LUMBAR SPINE WITHOUT AND WITH CONTRAST CLINICAL INFORMATION: IV drug user. Night sweats. Fever. Tenderness. COMPARISON: MRI dated October 15, 2012 is not available on PACS. TECHNIQUE: MRI of the lumbar spine was obtained using routine sequences with and without contrast. Intravenous contrast: Magnevist mL. No reported immediate complications. FINDINGS: Limited by patient's motion artifact. There is diffuse bone marrow STIR and hypointense T1 with indeterminate T2 homogeneously enhancing signal abnormality involving the vertebral bodies of L4 and L5 extending into the ventral epidural compartment from the inferior endplate of L3-S1 and a maximal thickness of 1 cm causing the central spinal canal stenosis compressing the neural elements of the thecal sac. There is extension of the heterogeneous enhancement beneath the left and to a lesser extent right psoas muscle at L4 level. There is no enhancement within the intervertebral disc L4-5. There is a grade 1 anterolisthesis L4-5 and disc desiccation. There is likely spondylolysis of the pars interarticularis at L4-5. There is no leptomeningeal enhancement. The conus medullaris ends at pedicle of L1 with normal signal. Multilevel disc desiccation and marginal osteophyte formation. There is a 30% volume loss of the anterior superior endplate of L3 likely old. Intrinsic hyperintense T1 bone lesion at L3. MR/MR lumbar spine wo/w con IMPRESSION: Osteomyelitis with prevertebral /ventral epidural compartment abscesses, L4 to L5 into the posterior psoas muscles resulting in the encroachment and or compression upon neural elements of the thecal sac. The possibility of a superimposed/underlying lymphoma cannot be excluded. 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 Findings communicated to the emergency physician assistant unit forester on November 09, 2024 at 3:48 PM.. Electronically signed by: Vimal Garza MD 11/09/2024 04:07 PM EDT
[2024-11-09 10:36] VITALS: BP 136/87; PULSE 107; RESP 22; TEMP 37; O2SAT 95; BMI 21.9
--- NOTE | 2024-11-09 10:40 | ED_ITS ---
HPI - Back Pain/Injury General Chief Complaint: General Medical Stated Complaint: back pain rad down leg, swollen knee Time Seen by Provider: 11/09/24 13:03 Source: patient Mode of arrival: ambulatory Limitations: no limitations History of Present Illness ED Provider: Bernie Warren PA-C HPI Narrative: Patient is a 54 year old assigned male at with a history of IVDA (last use 5 days ago) and hepatitis C, presenting to the emergency department today with low back pain and constipation. Patient states that 2 weeks ago he was working outside when he started having left sided low back pain. Patient states that it has continued to worsen and now he is having issues with having bowel movements regularly. Patient states that he has numbness / tingling in both of his lower extremities. Patient denies any dizziness, lightheadedness, abdominal pain, nausea, vomiting, fever, chills, blurry vision, double vision, loss of vision, chest pain, difficulty breathing, shortness of breath, night sweats, pain with urination, increased urinary frequency, increased urinary urgency, blood in his urine or stool, syncope or a near syncopal episode, bowel incontinence, bladder incontinence, or any other complaints at this time. Related Data Home Medications ?Medication ?Instructions ?Recorded ?Confirmed methadone 10 mg/mL oral 57 mg PO DAILY 04/19/23 04/19/23 concentrate (Methadone Intensol) Allergies Allergy/AdvReac Type Severity Reaction Status Date / Time No Known Allergies Allergy Verified 11/09/24 10:40 Review of Systems 2 Constitutional: Constitutional: Reports no additional constitutional complaints, Denies chills, Denies fever(s) and Denies night sweats Eyes: Eyes: Reports no additional eye complaints, Denies blurry vision, Denies change in vision, Denies diplopia, Denies eye discharge, Denies loss of vision and Denies eye pain ENT: Denies dizziness Cardiovascular: Cardiovascular: Reports no additional cardiovascular complaints, Denies chest pain, Denies lightheadedness, Denies Loss of Consciousness and Denies dyspnea Respiratory: Respiratory: Reports no additional respiratory complaints and Denies dyspnea Gastrointestinal: Gastrointestinal: Reports no additional gastrointestinal complaints, Denies abdominal pain, Denies melena, Denies hematochezia, Reports change in bowel habits, Denies change in stool character and Reports constipation Genitourinary: Genitourinary: Reports no additional male genitourinary complaints, Denies hematuria, Denies oliguria, Denies difficulty urinating, Denies dysuria, Denies urinary frequency, Denies urinary hesitancy, Denies urinary incontinence and Denies urinary urgency Musculoskeletal: Musculoskeletal: Reports no additional musculoskeletal complaints and Reports back pain (left sided) Comments: intermittent numbness / tingling in bilateral lower extremities Neurologic: Denies dizziness and Denies loss of vision Psychiatric: Psychiatric: Reports no additional psychiatric complaints Endocrine: Endocrine: Reports no additional endocrine complaints Hematologic/Lymphatic: Hematologic/Lymphatic: Reports no additional hematologic/lymphatic complaints Allergic/Immunologic: Allergic/Immunologic: Reports no additional allergic/immunologic complaints [facility] Past Medical History Attestation statement: The following information was validated with the patient. Source: old records reviewed and nursing notes reviewed Medical History Hepatitis C antibody test positive History of colon polyps Elevated liver transaminase level Normocytic normochromic anemia Methadone use History of septic arthritis IVDU (intravenous drug user) Surgical History Hx of hernia repair Family History Family History Mother Cirrhosis of liver Father Lung cancer Maternal Grandfather Colon cancer Social History Social History Housing: House Alcohol intake: never Patient Tobacco Use Status: Current someday Tobacco user Tobacco use type: Cigarette Cigarettes Per Day: 2 Smoked in Last 30 Days: Yes e-Cigarette/Vaping Use: Never Used Use of substances other than those prescribed or required for medical reasons: Yes Substance Use Type: Crack/Cocaine and Marijuana Advance Directives: No Advance Directives Information Provided: Yes service: No Current occupational status: employed Current occupation: home health care Current occupational exposures/hazards: No Cognitive needs: No Hearing needs: No Vision needs: Yes (reading glasses) Physical Exam 2 Vital Signs: Vital Signs: Last Vital Signs Temp 98.4 F 11/09/24 16:03 Pulse 78 11/09/24 16:03 Resp 20 11/09/24 16:03 BP 148/72 H 11/09/24 16:03 Pulse Ox 99 11/09/24 16:03 O2 Del Method Room Air 11/09/24 16:03 BMI result Body Mass Index 21.9 Const: General: cooperative, no acute distress, alert and awake Nutritional Appearance: thin Orientation/consciousness: patient oriented x3 L imitations: no limitations HEENT: Head: Yes normal to inspection and Yes atraumatic Ears: hearing grossly normal bilaterally and external ears normal General nose exam: Normal external nose present, no nasal discharge noted and no epistaxis Face and sinus: Yes normal facial exam, No abrasion and No laceration Mouth: Normal oral and palatal mucosa present, no drooling and no muffled voice Eyes: General: appearance normal, both eyes and all related structures P eriorbital: periorbital findings normal Eyelids: Yes eyelids normal C onjunctivae: conjunctivae normal Pupils: Equal, round and reactive pupils present EOM: EOMs intact bilaterally Neck: Neck: Yes normal visual inspection, Yes full ROM and Yes no lymphadenopathy Chest: Chest palpation & inspection: normal inspection of the chest Resp: Effort & Inspection: normal respiratory effort and able to speak in complete sentences GI: Inspection: Yes normal to inspection : General: Yes no CVA tenderness Back/Spine/Pelvis: Other: significant point tenderness to the lumbar spine and posterior left hip Back: no CVA tenderness Cervical Spine: normal cervical lordosis and cervical ROM normal Skin: Other: pale appearing Neuro: General: patient oriented x3, moves all extremities and CN's II-XI intact bilaterally Cranial nerves: Yes Equal, round and reactive pupils present Cognition (Neuro): normal cognition Extrem: General: Yes normal to inspection, Yes full ROM and Yes capillary refill normal Psych: Appearance: grossly normal Mental Status: mental status grossly normal Affect: normal affect Attitude: cooperative Thought process: N ormal thought process present Thought content: Normal thought content present Insight: Good insight present (Psych) Course Course Course Narrative: 54 yo male with PMH of IVDA, methadone use, anemia - he noted low back pain L flank pain and wraps around the abdomen. He also c/o inflammed fluid collection anterior knee. There is no redness to the knee. He feels like a fever over the past few days, no numbness, no loss of control of bowel or bladder, he last injected 4 days ago. He denies prior endocarditis or abscess in past. He does note the low back pain could have been due to chipping ice but he is not really clear of a trauma. At this time labs ordered and defer imaging to primary provider. This is a RAPID medical screening exam the rest of the history and physical exam is to be done by the main provider. [place] Reevaluation(s) Reevaluation #1: Attempted to admit the patient to the [facility] hospitalist team. Hospitalist team declined, requesting Neurosurgery consult before admission. Time: 16:41 Reevaluation #2: Spoke to the [facility] Neurosurgery ALENA Alcaraz. States she will staff with her attending and call back. States that while there is no indication for emergency surgery, they may still request he be transferred to their facility for interventional radiology and infectious disease involvement. Time: 17:12 Medications Administered Discontinued Medications Generic Name Dose Route Start Last Admin Trade Name Freq PRN Reason Stop Dose Admin Gadobutrol 7.5 ml 11/09/24 15:27 11/09/24 15:27 Gadobutrol 7.5 Ml Vial IVPUSH 11/09/24 15:28 6 ml ONCE ONE Administration Hydromorphone HCl 1 mg 11/09/24 13:58 11/09/24 14:24 Hydromorphone Hcl 1 Mg/Ml Syringe IVPUSH 11/09/24 13:59 1 mg ONCE ONE Administration Protocol Hydromorphone HCl 1 mg 11/09/24 15:51 11/09/24 16:05 Hydromorphone Hcl 1 Mg/Ml Syringe IVPUSH 11/09/24 15:52 1 mg ONCE ONE Administration Protocol Hydromorphone HCl 1 mg 11/09/24 17:05 11/09/24 17:08 Hydromorphone Hcl 1 Mg/Ml Syringe IVPUSH 11/09/24 17:06 1 mg ONCE ONE Administration Protocol Vancomycin HCl 1,000 mg/ 270 mls @ 270 mls/hr 11/09/24 15:51 11/09/24 16:25 Sodium Chloride IV 11/09/24 16:50 270 mls/hr ONCE ONE Administration Piperacillin Sod/Tazobactam 50 mls @ 100 mls/hr 11/09/24 15:51 11/09/24 16:36 Sod 3.375 gm/ Sodium Chloride IV 11/09/24 16:20 Infused ONCE ONE Infusion Medical Decision Making Medical Decision Making MDM Narrative: Patient is a 54 year old assigned male at with a history of IVDA (last use 5 days ago) and hepatitis C, presenting to the emergency department today with low back pain and constipation. Patient's physical exam was as noted in the physical exam portion of this note. Patient's blood work showed WBC 11.6, ESR 83, CRP 11.09. Patient's lumbar MRI showed osteomyelitis with prevertebral /ventral epidural compartment abscesses L4 to L5 into the posterior psoas muscles resulting in the encroachment upon neural elements of the thecal sac. The radiologist noted the possibility of a superimposed/underlying lymphoma. Patient given IV Vancomysin and Zosyn. Given the patient's relatively stable appearance (vitals WNL + no focal neurologic deficits), I attempted to admit the patient to our hospitalist service. They requested I consult with the [facility] Neurosugical service. I spoke with Lissa, the Neurosurgery PA at [facility] who spoke with her attending and recommended the patient be transferred to [facility] for a more in depth Neurosurgical evaluation. They stated the patient is unlikely to need surgical intervention and admission for IV antibiotics is likely to be the result there - but they'd like to perform their own examination to confirm this. I spoke with Dr. Hunt in the [facility] ED who accepted the patient as an ED to ED transfer. I explained my physical exam findings as well as all test results to the patient. I answered all questions asked by the patient. Patient verbalized agreement and understanding with this treatment plan and transfer. Differential Diagnosis Differential Diagnoses: The differential diagnosis associated with the presentation includes Epidural abscess Spinal abscess Admission/Observation Consideration of admission/observation: Escalation of care including admission/observation considered Patient transferred to [facility] Emergency Department, accepted by Dr. Hunt. Consult Healthcare Provider Management of the patient was discussed with: Dedicated Local Truck Driver (spoke to the [facility] Neurosurgery team who recommended transfer to the [facility] ED for further evaluation. Spoke to [facility] ED attending, Dr. Hunt who accepted patient in transfer. ) Lab Data [facility] Lab Attestation statement: I reviewed the patient's lab results. My interpretation of these results are in the MDM Rationale portion of this note. 11/09/24 10:59 11/09/24 10:59 Labs: Lab Results 11/09/24 11/09/24 11/09/24 Range/Units 10:58 10:59 12:51 WBC 11.6 H (4.8-10.8) X10*3/uL RBC 4.41 L (4.60-5.80) X10*6/uL Hgb 12.7 L (14.0-18.0) g/dl Hct 37.8 L (42.0-52.0) % MCV 85.7 (80.0-98.0) fL MCH 28.8 (27.0-33.0) pg MCHC 33.6 (31.0-36.0) g/dl RDW 12.6 (11.0-16.0) % Plt Count 473 H D (160-400) X10*3/uL MPV 8.4 L (9.4-12.4) fL Immature Gran % (Auto) 0.5 H (0.0-0.4) % Neut % (Auto) 85.1 H (45-73) % Lymph % (Auto) 5.4 L (20-40) % [place] % (Auto) 8.0 (2-11) % Eos % (Auto) 0.6 (0-4) % Baso % (Auto) 0.4 (0-2) % Lymph # (Auto) 0.6 L (1.2-4.9) X10*3/uL [place] # (Auto) 0.9 (0.1-1.2) X10*3/uL Eos # (Auto) 0.1 (0.0-0.4) X10*3/uL Baso # (Auto) 0.1 (0.0-0.2) X10*3/uL Abs Immat Gran (auto) 0.06 H (0.00-0.03) X10*3/uL Absolute Neuts (auto) 9.9 H (2.0-8.3) x10*3/uL Absolute Nucleated RBC 0.000 (0.0-0.012) X10*3/uL Nucleated RBC % (auto) 0.0 (0.0-0.2) /100WBC ESR 83 H (0-15) MM/HR Sodium 134 L (135-145) mmol/L Potassium 4.2 (3.3-5.1) mmol/L Chloride 98 (96-108) mmol/L Carbon Dioxide 25 (22-29) mmol/L Anion Gap 15 (12-20) BUN 13 (9-16) mg/dL Creatinine 0.87 (0.5-1.4) mg/dL Estim Creat Clear Calc 85.4 Estimated GFR > 60 Random Glucose 135 H (60-115) mg/dL Lactic Acid 1.7 (0.5-2.0) mmol/L Calcium 9.7 (8.4-10.2) mg/dL Magnesium 2.0 (1.6-2.6) mg/dL Total Bilirubin 0.4 (0.0-1.0) mg/dL Direct Bilirubin 0.2 (0.0-0.5) mg/dL AST 26 (5-37) U/L ALT 25 (0-40) U/L Alkaline Phosphatase 84 (39-117) U/L C-Reactive Protein 11.09 H (< or = 0.50) mg/dL Total Protein 9.8 H (6.5-8.0) g/dL Albumin 3.6 (3.5-5.0) g/dL Lipase 13 (8-78) U/L Urine Color Yellow Urine Appearance Clear Urine pH 6.0 (5.0-9.0) Ur Specific Biggs 1.025 (1.005-1.025) Urine Protein 30 (1+) H (Neg-Trace) mg/dL Urine Glucose (UA) Negative (Negative) mg/dL Urine Ketones Negative (Negative) mg/dL Urine Blood Negative (Negative) Urine Nitrite Negative (Negative) Ur Leukocyte Esterase Negative (Negative) Urine RBC 3-5 H (0-2) /HPF Urine WBC 0-5 (0-5) /HPF Ur Squamous Epith Cells 0-2 (0-2) /HPF Urine Bacteria None Seen (None Seen) Hyaline Casts 0-2 (0-2) /LPF Independent Interpretation Interpretation: My interpretation is in agreement with the radiologist's impression of this MRI lumbar study. L EXAMINATION: MR LUMBAR SPINE WITHOUT AND WITH CONTRAST CLINICAL INFORMATION: IV drug user. Night sweats. Fever. Tenderness. COMPARISON: MRI dated October 15, 2012 is not available on PACS. TECHNIQUE: MRI of the lumbar spine was obtained using routine sequences with and without contrast. Intravenous contrast: Magnevist mL. No reported immediate complications. FINDINGS: Limited by patient's motion artifact. There is diffuse bone marrow STIR and hypointense T1 with indeterminate T2 homogeneously enhancing signal abnormality involving the vertebral bodies of L4 and L5 extending into the ventral epidural compartment from the inferior endplate of L3-S1 and a maximal thickness of 1 cm causing the central spinal canal stenosis compressing the neural elements of the thecal sac. There is extension of the heterogeneous enhancement beneath the left and to a lesser extent right psoas muscle at L4 level. There is no enhancement within the intervertebral disc L4-5. There is a grade 1 anterolisthesis L4-5 and disc desiccation. There is likely spondylolysis of the pars interarticularis at L4-5. There is no leptomeningeal enhancement. The conus medullaris ends at pedicle of L1 with normal signal. Multilevel disc desiccation and marginal osteophyte formation. There is a 30% volume loss of the anterior superior endplate of L3 likely old. Intrinsic hyperintense T1 bone lesion at L3. MR/MR lumbar spine wo/w con IMPRESSION: Osteomyelitis with prevertebral /ventral epidural compartment abscesses, L4 to L5 into the posterior psoas muscles resulting in the encroachment and or compression upon neural elements of the thecal sac. The possibility of a superimposed/underlying lymphoma cannot be excluded. 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 Findings communicated to the emergency physician shipping assistant on November 09, 2024 at 3:48 PM.. Electronically signed by: Vimal Garza MD 11/09/2024 04:07 PM EDT RP Dictated By: Vimal Spence MD Signed By: Electronically signed by Vimal Urias MD 11/09/24 1607 Radiology Impression Discussion of test interpretation with radiology: I have reviewed the radiologist's reading. Independent Historian Clinical information obtained from an independent historian. History obtained from or confirmed by: Parent (patient's mother provided additional history and confirmed the history provided by the patient. ) Critical Care Time Critical Care Time Critical Care Time: Yes Total Critical Care Time: 52 Attestation: I spent 52 minutes of Critical Care Time with this patient. This does not include time spent on separately reported billable procedures. Discharge Plan Discharge Clinical Impression: Spinal abscess Patient Disposition: [facility] Transfer Details: To [facility] ED, accepted by Dr. Hunt Prescriptions: No Action methadone [Methadone Intensol] 10 mg/mL concentrate 57 mg PO DAILY Patient Comments: goes to [facility] Instructions: 57 mg per patient Print Language: French
[2024-11-09 11:07] LABS: MANUAL DIFF FLAG NO
[2024-11-09 11:09] LABS: Basophils Absolute Auto 0.1 X10*3/uL (0.0-0.2); Basophils Percent Auto 0.4 % (0-2); Eosinophils Absolute Auto 0.1 X10*3/uL (0.0-0.4); Eosinophils Percent Auto 0.6 % (0-4); Hematocrit 37.8 % (42.0-52.0); Hemoglobin 12.7 g/dl (14.0-18.0); Imm Gran Abs Auto 0.06 X10*3/uL (0.00-0.03); Imm Gran Pct Auto 0.5 % (0.0-0.4); Lymphocytes Absolute Auto 0.6 X10*3/uL (1.2-4.9); Lymphocytes Percent Auto 5.4 % (20-40); Mean Corpuscular HGB Conc 33.6 g/dl (31.0-36.0); Mean Corpuscular Hemoglobin 28.8 pg (27.0-33.0); Mean Corpuscular Volume 85.7 fL (80.0-98.0); Mean Platelet Volume 8.4 fL (9.4-12.4); Monocytes Absolute Auto 0.9 X10*3/uL (0.1-1.2); Neutrophils Absolute Auto 9.9 x10*3/uL (2.0-8.3); Neutrophils Percent Auto 85.1 % (45-73); Platelet Count 473 X10*3/uL (160-400); Red Blood Count 4.41 X10*6/uL (4.60-5.80); Red Cell Distribution Width 12.6 % (11.0-16.0); White Blood Count 11.6 X10*3/uL (4.8-10.8)
[2024-11-09 11:28] LABS: Lactic Acid 1.7 mmol/L (0.5-2.0)
[2024-11-09 11:31] LABS: Alanine Aminotransferase 25 U/L (0-40); Albumin Level 3.6 g/dL (3.5-5.0); Alkaline Phosphatase 84 U/L (39-117); Anion Gap 15 (12-20); Aspartate Amino Transferase 26 U/L (5-37); Bilirubin Direct 0.2 mg/dL (0.0-0.5); Bilirubin Total 0.4 mg/dL (0.0-1.0); Blood Urea Nitrogen 13 mg/dL (9-16); C Reactive Protein 11.09 mg/dL (< or = 0.50); Calcium 9.7 mg/dL (8.4-10.2); Carbon Dioxide 25 mmol/L (22-29); Chloride 98 mmol/L (96-108); Creatinine Clr Calc Pharmacy 85.4; Estimated Glomerular Filt Rate > 60; Glucose Random 135 mg/dL (60-115); Lipase 13 U/L (8-78); Potassium 4.2 mmol/L (3.3-5.1); Sodium 134 mmol/L (135-145); Total Protein 9.8 g/dL (6.5-8.0)
[2024-11-09 11:49] LABS: Erythrocyte Sedimentation Rate 83 MM/HR (0-15)
[2024-11-09 13:01] LABS: Appearance Urine Clear; Color Urine Yellow; Glucose Urine UA Negative (Negative); Leukocyte Esterase Urine Negative (Negative); Nitrite Urine Negative (Negative); Specific Gravity - Urine 1.025 (1.005-1.025); UMIC TRIGGER UACC YES; Urine Blood Negative (Negative); Urine Ketones Negative (Negative); Urine Protein 30 (1+) mg/dL (Neg-Trace)
[2024-11-09 13:07] VITALS: BP 137/83; PULSE 84; RESP 14; TEMP 36.9; O2SAT 94
[2024-11-09 13:08] LABS: Bacteria Urine None Seen (None Seen); Hyaline Casts Urine 0-2 /LPF (0-2); Squamous Epithelial Cell Urine 0-2 /HPF (0-2); WBC Urine 0-5 /HPF (0-5)
--- NOTE | 2024-11-09 13:34 | PC.NURSE ---
MRI screening form completed with pt- faxed to MRI confirmation rec- sent to hand cigar making supervisor via [employer] connect
[2024-11-09] MEDS: HYDROmorphone HCl 1 MG/ML SYRINGE IVPUSH ×3 (14:24→17:08)
--- NOTE | 2024-11-09 14:50 | MHC.EDTECH ---
pt transported to MRI at this time
[2024-11-09] MEDS: gadobutroL 7.5 ML VIAL IVPUSH (15:27)
[2024-11-09 16:03] VITALS: BP 148/72; PULSE 78; RESP 20; TEMP 36.9; O2SAT 99
[2024-11-09] MEDS: Piperacillin Sodium/Tazobactam 3.375 GM in 0.9 % Sodium Chloride 50 ML IV (16:06)
--- NOTE | 2024-11-09 16:09 | PC.NURSE ---
pt returned from CT at this time c/o increase in pain - rating it a 10/10. provider notified/aware. medication administered per provider order. effectiveness pending. abx infusing at this time. otherwise, vss and up to date. pt remains afebrile. on RA w/o difficulty - no sob/wob noted. respirations even/unlabored. family bedside for support. plan of care ongoing. call short placed within reach.
[2024-11-09] MEDS: vancomycin HCL 1,000 MG in 0.9 % Sodium Chloride 250 ML 270 MG IV (16:25)
--- NOTE | 2024-11-09 16:48 | PC.NURSE ---
pillow placed to left side of hip to promote comfort.
--- NOTE | 2024-11-09 16:53 | PHA.MEDREC ---
Pharmacy Consult ? Medication Reconciliation Pharmacy has completed the medication reconciliation. Spoke with patient, he is currently not on any medications, except methadone.
--- NOTE | 2024-11-09 17:09 | PC.NURSE ---
pt tearful d/t increased lower back pain. pt remedicated per provider order. effectiveness pending. abx continues to infuse at this time. lights dimmed to promote comfort. respirations remain even/unlabored. plan of care ongoing. call short placed within reach.
--- NOTE | 2024-11-09 18:51 | PC.NURSE ---
report given to ELLIOTT Matute at this time.
--- NOTE | 2024-11-09 18:54 | PC.NURSE ---
report given to MOUNA Bernardo in ED at [facility] at this time.
[2024-11-09 18:55] VITALS: BP 148/72; PULSE 78; RESP 20; TEMP 36.9; O2SAT 99
--- NOTE | 2024-11-10 02:11 | PC.NURSE ---
Addendum entered by Nissa Miller 11/10/24 04:44: 2nd set blood culture gram positive cocci seen on gram stain. Report given to [facility] at [facility]. Addendum entered by Nissa Miller 11/10/24 02:13: 1 set of BC, Gram + cocci in clusters. Original Note: Results called over to [facility]. TW spoke to Minerva FREIRE
== END 2024-11-09 18:57 | disposition short-term general hospital (02) ==
PROVIDERS: Emergency Medicine; Emergency Provider Emergency Medicine Emergency Medical Services; PCP Internal Medicine
DX: G06.1 Intraspinal abscess and granuloma (principal); M54.50 Low back pain, unspecified; R22.42 Localized swelling, mass and lump, left lower limb; R20.0 Anesthesia of skin; R10.2 Pelvic and perineal pain; F17.210 Nicotine dependence, cigarettes, uncomplicated; Z79.899 Other long term (current) drug therapy
CPT/HCPCS: 36415; 72158; 80048; 80076; 81001; 81003; 83605; 83690; 83735; 85025; 85652; 86140; 87040; 87077; 87147; 87186; 87205; 96365; 96367; 96375; 96376; 99285; A9585; J1171; J2543; J3370

== ENCOUNTER → 2024-11-09 13:24 | Outpatient (BNV) | payer MEDICARE, MEDICAID, SELFPAY | PROVIDERS: Emergency Provider Emergency Medicine Emergency Medical Services; PCP Internal Medicine; Visit Provider Radiology Diagnostic Radiology | DX: M46.26 Osteomyelitis of vertebra, lumbar region (principal) | CPT/HCPCS: 72158 ==

== ENCOUNTER 2025-01-20 08:12 | Outpatient (AMB) | payer MEDICARE, MEDICAID, SELFPAY ==
[2025-01-20 08:14] VITALS: BP 84/60; PULSE 74; RESP 18; TEMP 36.4; O2SAT 95; BMI 23.2
--- NOTE | 2025-01-20 08:14 | A.OFFPC_ITS ---
Vital Signs 01/20/25 08:14 Height 5 ft 6 in Weight 144 lb BMI 23.2 BP 84/60 L Blood Pressure Location Lt brachial Position Sitting Respiration 18 Pulse 74 Pulse Source Pulse Oximeter Temp 97.6 F Temp Source Oral Pulse Oximetry (%) 95 Oxygen Delivery Method Room Air Intake Visit Reasons: HDF Intake Note: Pt is here today for her HDF Allergies No Known Allergies Allergy (Verified 01/20/25 08:18) Medication List - Last Reconciled 01/20/25 by Yuridia Riggins MD cefdinir 300 mg PO Q12H methadone (Methadone Intensol) 80 mg PO DAILY sulfamethoxazole-trimethoprim 800-160 mg tabs PO Tobacco use date assessed: 01/20/25 Dental Screening Dental Screen Date: 01/20/25 Did you have a dental visit in the last 12 months?: Yes Did you have a dental problem in the last 6 months where you did not have access to dental care?: Yes Was dental information given to patient?: Patient has dentist HPI HDF HPI Details 54-year-old male with history of IVDU(op iates, cocaine), on methadone and on oral antibiotics for lumbar osteomyelitis/diskitis/phlegmon who was recently seen at the ER at [facility] 01/16/2025 after using IV heroin received several doses of Narcan, admitted for severe withdrawal symptoms , stabilized and discharged to home 01/17/2025, here today for follow-up visit At present patient states he is feeling better, still gets occasional pain in lower back with certain movements unable to walk for long distances, has to use a walker. He also has been complaining of intermittent episodes of cramping in his left calf present now for the last several days. He has been afebrile, still continuing to take his cefdinir antibiotic to complete 28 days on the medication. Patient states he has an appointment already scheduled to see [facility] next month for follow-up regarding his osteomyelitis. He receives his methadone at [facility] and see's a counselor Darlene. Pt. stated that it is a general conversation he has with this counselor and would like a referral to see a therapist for in-person therapy. He also needs PT1 services to go to [facility] in [place]. [facility] Medical History Leg cramps Malnutrition History of drug overdose History of fracture of vertebra History of rib fracture History of osteomyelitis Hepatitis C antibody test positive History of colon polyps Elevated liver transaminase level Normocytic normochromic anemia Methadone use History of septic arthritis IVDU (intravenous drug user) Surgical History Hx of hernia repair Family History Mother Cirrhosis of liver Father Lung cancer Maternal Grandfather Colon cancer Social History Housing: House Alcohol intake: never Patient Tobacco Use Status: Former Tobacco user Tobacco use type: Cigarette Cigarettes Per Day: 2 e-Cigarette/Vaping Use: Never Used Substance Use Type: Crack/Cocaine and Marijuana service: No Current occupational status: employed Current occupation: home health care Current occupational exposures/hazards: No Cognitive needs: No Hearing needs: No Vision needs: Yes (reading glasses) Questionnaire PHQ-9 Over the last 2 weeks, how often have you been bothered by any of the following problems? 1. Little interest or pleasure in doing things: not at all 2. Feeling down, depressed, or hopeless: not at all 3. Trouble falling or staying asleep, or sleeping too much: not at all 4. Feeling tired or having little energy: not at all 5. Poor appetite or overeating: not at all 6. Feeling bad about yourself - or that you are a failure or have let yourself or your family down: not at all 7. Trouble concentrating on things, such as reading the newspaper or watching television: not at all 8. Moving or speaking so slowly that other people could have noticed. Or the opposite - being so fidgety or restless that you have been moving around a lot more than usual: not at all 9. Thoughts that you would be better off or of hurting yourself in some way: not at all Total score: 0 Depression Screening Interpretation: Negative Depression Screening Done: Yes 67416 - PHQ-9 Billing: Yes Source: Developed by Drs. Chaparro Weller, Jeannette Oakes, Gualberto Wild and colleagues, with an educational jake from [employer]. Thrive Questionnaire Date Thrive assessed: 01/20/25 I am a: Patient What is your living situation today?: I have a steady place to live Within the past 12 months, did the food you bought not last and you didn't have the money to get more?: Never true Within the past 12 months, did you worry whether your food would run out before you got money to buy more?: Never true Do you have trouble paying for medicines?: No Do you have trouble getting transportation to medical appointments?: No Do you have trouble paying your heating and electricity bill?: No Do you have trouble taking care of your child, family member or friend?: No Do you have trouble with day-to-day activities such as bathing, preparing meals, shopping, managing finances, etc.?: No Are you currently unemployed and looking for a job?: Yes Are you interested in more education?: No Please select the resources that you would like help with: None Currently or been in a relationship where the following occur: No concerns reported THRIVE Score: 0 AUDIT C Alcohol Use Questionnaire (AUDIT-C) 1. How often do you have a drink containing alcohol?: Never Total Score: 0 MELISSA-7 AMB Questionnaire MELISSA-7 Date MELISSA - 7 assessed: 01/20/25 Feeling nervous, anxious, or on edge: 0 = Not at all Not being able to stop or control worryin = Not at all Worrying too much about different things: 0 = Not at all Trouble relaxin = Several days Being so restless that it is hard to sit still: 0 = Not at all Becoming easily annoyed or irritable: 0 = Not at all Feeling afraid as if something awful might happen: 0 = Not at all Total MELISSA-7 score (0-4 normal; 5-9 mild; 10-14 moderate; 15-21 severe): 1 Source: Developed by Drs. Chaparro Weller, Jeannette Oakes, Gualberto Wild and colleagues, with an educational jake from [employer]. Review of Systems Const Denies fever(s), Denies headache(s) and Reports weight loss Eyes Denies change in vision ENT Denies dizziness, Denies headache(s), Denies nasal congestion, Denies nasal discharge and Denies sore throat Card Denies chest pain, Denies lightheadedness, Denies palpitations and Denies dyspnea Resp Denies chest congestion, Denies cough, Denies dyspnea and Denies wheezing GI Denies abdominal pain, Denies change in bowel habits and Denies heartburn Denies difficulty urinating, Denies dysuria and Denies urinary frequency Musc Reports abnormal gait (Uses a walker), Reports back pain, Reports muscle cramps, Reports muscle weakness and Reports stiffness Skin/Breast Denies lesions and Denies rash Neuro Reports abnormal gait (Uses a walker), Denies dizziness and Denies headache(s) Psych Reports no additional complaints Endo Denies palpitations Adebayo/Lymph Denies easy bleeding and Denies easy bruising Aller/Immun Denies seasonal rhinorrhea and Denies wheezing Physical exam (Primary Care) Vital Signs: Last Vital Signs Temp 97.6 F 01/20/25 08:14 Pulse 74 01/20/25 08:14 Resp 18 01/20/25 08:14 BP 84/60 L 01/20/25 08:14 Pulse Ox 95 01/20/25 08:14 Oxygen Delivery Method Room Air 01/20/25 08:14 BMI result Body Mass Index 23.2 Tobacco/Smoking Status: Tobacco use Status Tobacco use date assessed 01/20/25 01/20/25 08:19 Patient Tobacco Use Status Former Tobacco user 01/20/25 08:19 Tobacco use type Cigarette 01/20/25 08:19 e-Cigarette/Vaping Use Never Used 01/20/25 08:19 PHQ-9: PHQ-9 Score PHQ-9: Total score 0 01/20/25 08:19 Depression Screening Interpretation: Negative Thrive Assessment: Date of Thrive Assessment Date Thrive assessed 01/20/25 01/20/25 08:19 Currently or been in a relationship where the following occur: No concerns reported Const General: no acute distress Orientation/consciousness: patient oriented x3 HENMT Head: Yes normocephalic Ears: external ears normal General nose exam: Normal external nose present Face and sinus: Yes face symmetric Mouth: moist mucous membranes Eyes General: appearance normal, both eyes and all related structures Sclerae: sclerae normal Pupils: Equal, round and reactive pupils present EOM: EOMs intact bilaterally Direct Ophthalmoscopy: normal light reflex Neck Neck: Yes full ROM, Yes no lymphadenopathy and Yes supple Chest Chest palpation & inspection: normal inspection of the chest Resp Effort & Inspection: normal respiratory effort and able to speak in complete sentences Auscultation: clear to auscultation bilaterally Percussion: percussion normal Cardio Rate: regular rate Rhythm: regular rhythm Heart sounds: S1 normal heart sound present and S2 normal heart sound present GI Palpation (GI): Soft to palpation, nontender, no guarding and no masses Auscultation: normal bowel sounds General: Yes no CVA tenderness Back/Spine/Pelvis Other: Tenderness on palpation on L4 and L5 area, no erythema over lying Back: no CVA tenderness Skin General skin exam: no rashes or lesions noted Neuro General: patient oriented x3, tone normal, moves all extremities, Normal light touch and pain sensation, no focal motor deficits and CN's II-XI intact bilaterally Cranial nerves: Yes Equal, round and reactive pupils present Cognition (Neuro): normal cognition Gait exam (Neuro): Antalgic gait present (Uses walker) Psych Appearance: grossly normal and well kempt Mental Status: mental status grossly normal Speech and movement: Normal speech and movement present Affect: normal affect Attitude: cooperative Coding Level of Care Code Est Pt Level 4 (07090) Complex EM visit Add On G2211 Diagnoses History of osteomyelitis Z87.39 Methadone use F11.90 IVDU (intravenous drug user) F19.90 History of drug overdose Z91.89 Leg cramps R25.2 Additional Codes PHQ-9 - 43998 - PHQ-9 Billing: Yes ([id number]) Assessment & Plan Assessment & Plan (1) History of osteomyelitis: Comment: Lumbar spine Code(s): Z87.39 - Personal history of other diseases of the musculoskeletal system and connective tissue Category: Medical Plan: Recent osteomyelitis L4-L5 status post 6 weeks of antibiotic cefazolin, currently on cefdinir 300 mg 1 tablet every 12 hours to complete 28 days. Has a follow-up appointment with [facility] infection sees, continue with cefdinir and Bactrim DS, to complete 28 days treatment (2) Methadone use: Comment: Goes to [facility] in [place] Code(s): F11.90 - Opioid use, unspecified, uncomplicated Category: Medical Plan: Currently being followed at [facility] (3) IVDU (intravenous drug user): Code(s): F19.90 - Other psychoactive substance use, unspecified, uncomplicated Category: Social Hx Plan: Currently being seen at [facility], on methadone (4) History of drug overdose: Code(s): Z91.89 - Other specified personal risk factors, not elsewhere classified Plan: Currently being seen at [facility], on methadone (5) Leg cramps: Code(s): R25.2 - Cramp and spasm Category: Medical Plan: Advised to stay well-hydrated, prescription sent for magnesium glycinate 100 mg per capsule to take once at night as needed for leg cramps. Medications: New magnesium glycinate 100 mg PO BEDTIME PRN 30 caps 1RF Leg cramps
--- OUTSIDE RECORDS SUMMARY | 2025-01-20 08:24 | XMS_ITS | Clinical Summary ---
Author Organization [address] [facility] Address [address] [place] [address] Phone Care Team Providers Care Manager Editorial Name Role Phone Unavailable Primary Care Provider Unavailabl e Social History Tobacco Use Types Packs/Day Years Used Date Smoking Tobacco: Never Assessed Sex and Gender Information Value Date Recorded Sex Assigned at Not on file Legal Sex Male 12:06 AM EST Gender Identity Not on file Sexual Orientation Not on file Plan of Treatment Health Maintenance Due Date Last Done Comments DTaP,Tdap,and Td Vaccines (1 - Tdap) 1990 Hepatitis A Vaccines (1 of 2 - Risk 2-dose series) 1990 Hepatitis B Vaccines (1 of 3 - 19+ 3-dose series) 1990 Pneumococcal Vaccine: 50+ Ye ars (1 of 1 - PCV) 2021 Zoster Vaccines (1 of 2) 2021 Cholesterol Screening (Lipid Panel) 07/29/2022 Colorectal Cancer Screening: Colonoscopy 07/29/2022 Depression Screening 07/29/2022 Medicare Annual Wellness Visit 07/29/2022 Social Influencers of Health Screening 07/29/2022 COVID-19 Vaccine ( - 2023-2 5 season) 2024 Influenza Vaccine (Season Ended) 2025 HIV Screening Completed 08/14/2024 Hepatitis C Screening [...] age to complete this topic Meningococcal B Vaccine Aged Out No l onger eligible based on patient's age to complete [...] Procedure Name Priority Date/Time Associated Diagnosis Comments HEPATITIS C VIRUS QUANTITATIVE PCR Routine 08/14/2024 8:45 AM EST Encounter for screening for infections with a predominantly sexual mode of transmission Opioid dependence, uncomplicated (CMS/HCC) HIV 1, 2 ANTIBODY, P24 ANTIGEN WITH REFLEX TO DIFFERENTIATION Routine 08/14/2024 8:45 AM EST Encounter for screening for infections with a predominantly sexual mode of transmission Opioid dependence, uncomplicated (CMS/HCC) from Last 3 Months or Most Recently Relevant to Health Maintenance Results * HIV 1,2 antibody, p24 antigen [...] nal Result [facility] [address] [place] [address], * (ABNORMAL) Hepatitis C virus quantitative molecular study (08/14/2024 8:45 AM EST) HCV Qual Interp Detected (A) Not Detected LAB MOLECULAR DIAGNOSTICS METHOD 08/18/2024 10:23 AM EST [facility] HCV RNA Quantitative <12 <12 I Unit/mL LAB MOLECULAR DIAGNOSTICS METHOD 08/18/2024 10:23 AM EST [facility] Comment:HCV RNA detected but below [...] nal Result [facility] [address] [place] [address], from Last 3 Months or Most Recently Relevant to Health Maintenance Insurance MEDICARE [place]ICAID - [place]
== END 2025-01-20 09:00 | disposition home or self-care (01) ==
LOC: HO.HMCC 08:13
PROVIDERS: PCP Internal Medicine; Visit Provider Internal Medicine
DX: Z87.39 Personal history of other diseases of the musculoskeletal system and connective tissue (principal); F11.90 Opioid use, unspecified, uncomplicated; F19.90 Other psychoactive substance use, unspecified, uncomplicated; Z91.89 Other specified personal risk factors, not elsewhere classified; R25.2 Cramp and spasm

== ENCOUNTER → 2025-01-20 08:12 | Outpatient (BNVA) | payer MEDICARE, MEDICAID, SELFPAY | PROVIDERS: PCP Internal Medicine; Visit Provider Internal Medicine | DX: R25.2 Cramp and spasm (principal); F11.90 Opioid use, unspecified, uncomplicated; Z91.89 Other specified personal risk factors, not elsewhere classified; F19.90 Other psychoactive substance use, unspecified, uncomplicated; Z87.39 Personal history of other diseases of the musculoskeletal system and connective tissue | CPT/HCPCS: 96127; 99212 ==

== ENCOUNTER 2025-01-24 16:11 | Emergency (ER) | payer MEDICARE, MEDICAID, SELFPAY ==
--- NOTE | ~2025-01-24 | XR_ITS ---
CLINICAL HISTORY: cough, poss aspiration 1 view chest x-ray. Comparison: None Findings: Heart size normal. No acute fracture. Impression: Lungs are clear. This document has been electronically signed by: Natalio Romano MD on 01/24/2025 17:35:34
[2025-01-24 16:22] VITALS: BP 111/71; BP 129/63; PULSE 71; PULSE 80; RESP 18; TEMP 36.2; O2SAT 100; BMI 22.2
--- NOTE | 2025-01-24 16:31 | ED_ITS ---
HPI - Overdose General Chief Complaint: Overdose Stated Complaint: took heroin/ cocaine. narcan given Time Seen by Provider: 01/24/25 16:16 History of Present Illness ED Provider: Lenny Vazquez MD HPI Narrative: 54-year-old male with opioid use disorder status post naloxone by family bystander and EMS. No acute complaints Related Data Home Medications ?Medication ?Instructions ?Recorded ?Confirmed cefdinir 300 mg capsule 300 mg PO Q12H 01/20/25 01/20/25 methadone 10 mg/mL oral 80 mg PO DAILY 01/20/25 01/20/25 concentrate (Methadone Intensol) sulfamethoxazole 800 tab PO 01/20/25 01/20/25 mg-trimethoprim 160 mg tablet Previous Rx's ?Medication ?Instructions ?Recorded magnesium glycinate 100 mg PO BEDTIME PRN Leg cramps 01/20/25 #30 caps Allergies Allergy/AdvReac Type Severity Reaction Status Date / Time No Known Allergies Allergy Verified 01/24/25 16:26 PMFSH Past Medical History Medical History Leg cramps Malnutrition History of drug overdose History of fracture of vertebra History of rib fracture History of osteomyelitis Hepatitis C antibody test positive History of colon polyps Elevated liver transaminase level Normocytic normochromic anemia Methadone use History of septic arthritis IVDU (intravenous drug user) Surgical History Hx of hernia repair Family History Family History Mother Cirrhosis of liver Father Lung cancer Maternal Grandfather Colon cancer Social History Social History Housing: House Unable to assess alcohol history related to: Refusing to respond Alcohol intake: never Patient Tobacco Use Status: Former Tobacco user Tobacco use type: Cigarette Cigarettes Per Day: 2 e-Cigarette/Vaping Use: Never Used Substance Use Type: Crack/Cocaine and Heroin service: No Current occupational status: employed Current occupation: home health care Current occupational exposures/hazards: No Cognitive needs: No Hearing needs: No Vision needs: Yes (reading glasses) Physical Exam Vital Signs: Vital Signs: Last Vital Signs Temp 97.1 F 01/24/25 20:33 Pulse 77 01/24/25 20:33 Resp 14 01/24/25 20:33 BP 107/65 06/01/25 20:33 Pulse Ox 99 01/24/25 20:33 O2 Del Method Room Air 01/24/25 20:33 BMI result Body Mass Index 22.2 Medications Administered Discontinued Medications Generic Name Dose Route Start Last Admin Trade Name Curtis PRN Reason Stop Dose Admin Lorazepam 1 mg 01/24/25 17:36 01/24/25 17:56 Lorazepam 1 Mg Tablet PO 01/24/25 17:37 1 mg ONCE ONE Administration Naloxone HCl 8 mg 01/24/25 19:27 01/24/25 19:35 Naloxone Hcl Nasal Take Home 4 Mg [place] NOSTRILALT 01/24/25 19:28 8 mg ONCE ONE Administration Ondansetron HCl 4 mg 01/24/25 17:36 01/24/25 17:56 Ondansetron Odt 4 Mg Tab.Rapdis TRANSLINGU 01/24/25 17:37 4 mg ONCE ONE Administration Medical Decision Making Medical Decision Making MDM Narrative: 54-year-old male status post naloxone from family bystander and EMS. Patient with some mild intermittent retching and mild opiate withdrawal symptomatology but no acute medical emergency identified. Monitored several hours at least 4 hours since naloxone administration. Patient requests discharge home with family member who come to pick him up. DC with naloxone to go pack Independent Interpretation I performed an independent interpretation of an: Plain X-Ray (No infiltrate or pulmonary edema) Discharge Plan Discharge Clinical Impression: Opioid overdose Patient Disposition: Home, Self-Care Instructions: Opioid Use Disorder (ED) Additional Instructions: Please use and keep naloxone close to you Prescriptions: No Action methadone [Methadone Intensol] 10 mg/mL concentrate 80 mg PO DAILY Patient Comments: goes to [facility] Instructions: 57 mg per patient cefdinir 300 mg capsule 300 mg PO Q12H sulfamethoxazole-trimethoprim 800-160 mg tablet PO magnesium glycinate 100 mg magnesium capsule 100 mg PO BEDTIME PRN (Reason: Leg cramps) Qty: 30 1RF Interventions: ED Discharge Assessment Last Done: 01/24/25 20:33 Discharge Date/Time: 01/24/25 20:33 Print Language: [place]
--- NOTE | 2025-01-24 17:15 | PC.NURSE ---
Unable to obtain EKG/vitals d/t pt refusing and impulsive behaviors- safety risk to staff and self. Pt self removing bus monitor leads/hospital gown. Pt irritable/agitated, attempted to get out of bed- able to be redirected back into bed by this RN, quickly switches back to impulsive behavior. Alert, lethargic at times, easily arousable to verbal stimuli, frequent yawning, diaphoretic, anxious, tremulous. MD Riggins made aware of withdrawal symptoms. Per MD- will attempt to medicate if pt becomes safety risk to self and staff d/t increasing agitation/impulsiveness. Pt offered fluids/food- refused d/t anxiousness. Pt given warm blankets, call short within reach, all needs met at this time.
[2025-01-24] MEDS: Ondansetron ODT 4 MG TAB.RAPDIS TRANSLINGU (17:56)
[2025-01-24] MEDS: LORazepam 1 MG TABLET PO (17:56)
[2025-01-24] MEDS: Naloxone HCl Nasal TAKE HOME 4 MG SPRAY 8 MG NOSTRILALT (19:35)
[2025-01-24 19:36] VITALS: BP 107/65
[2025-01-24 20:33] VITALS: BP 107/65; PULSE 77; RESP 14; TEMP 36.2; O2SAT 99
== END 2025-01-24 20:33 | disposition home or self-care (01) ==
PROVIDERS: Emergency Provider Emergency Medicine; PCP Internal Medicine
DX: T50.901A Poisoning by unspecified drugs, medicaments and biological substances, accidental (unintentional), initial encounter (principal); Y92.9 Unspecified place or not applicable; R05.9 Cough, unspecified; F11.90 Opioid use, unspecified, uncomplicated
CPT/HCPCS: 71045; 99283; 99284

== ENCOUNTER → 2025-01-24 16:52 | Outpatient (BNV) | payer MEDICARE, MEDICAID, SELFPAY | PROVIDERS: Emergency Provider Emergency Medicine; PCP Internal Medicine; Visit Provider Radiology Diagnostic Radiology | DX: R05.9 Cough, unspecified (principal) | CPT/HCPCS: 71045 ==

== ENCOUNTER 2025-03-12 08:57 | Outpatient (AMB) | payer MEDICARE, MEDICAID, SELFPAY ==
--- OUTSIDE RECORDS SUMMARY | 2025-03-12 09:01 | XMS_ITS | Clinical Summary ---
Author Organization [address] [facility] Address [address] [place] [address] Phone Care Team Providers Care Pillow Cleaner Name Role Phone Unavailable Primary Care Provider [...] 2023-2 5 season) 2024 Influenza Vaccine (#1) 2025 HIV Screening Completed 08/14/2024 Hepatitis C [...] 5 Years) and At-Risk Patients (6 to 49 Years) Aged Out No longer eligi ble [...] LAB CHEMISTRY METHOD 08/14/2024 4:33 PM EST [facility] Blood Venous blood specimen / Unknown 08/14/2024 8:45 AM EST 08/14/2024 2:11 PM EST Narrative [facility] - 08/14/2024 4:33 PM EST This assay is a 4th generation assay allowing for earlier detection of HIV infection by detecting the presence of the HIV-1 p24 antigen as well as the traditional antibodies to HIV type 1 (including group O) and type 2. Use of a 4th generation assay is the current CDC recommendation for HIV screening. us Sabrina Yang MD LAB BLOOD ORDERABLES Fi nal Result [facility] [address] [place] [address], * (ABNORMAL) Hepatitis C virus quantitative molecular study (08/14/2024 8:45 AM EST) HCV Qual Interp Detected (A) Not Detected LAB MOLECULAR DIAGNOSTICS METHOD 08/18/2024 10:23 AM EST [facility] HCV RNA Quantitative <12 <12 I Unit/mL LAB MOLECULAR DIAGNOSTICS METHOD 08/18/2024 10:23 AM EST [facility] Comment:HCV RNA detected but below the limit of quantitation. Unable to report quantitative results <12 IU/mL. HCV RNA Quantitative Log <1.08 <1.08 Log IU/mL LAB MOLECULAR DIAGNOSTICS METHOD 08/18/2024 10:23 AM EST [facility] Blood Venous blood specimen / Unknown 08/14/2024 8:45 AM EST 08/14/2024 2:11 PM EST us Sabrina Yang MD LAB BLOOD ORDERABLES Fi nal Result [facility] [address] [place] [address], [place] [phone] from Last 3 Months or Most Recently Relevant to Health Maintenance Insurance MEDICARE [place]ICAID - [place]
--- NOTE | 2025-03-12 09:02 | HO.SPINEOV ---
Vital Signs 03/12/25 09:07 Height 5 ft 8 in Weight 155 lb BMI 23.6 Intake Visit Reasons: lumbar radiculopathy Intake Note: Mr. Mazariegos is here today c/o low back pain that radiates down to the hips and legs causing numbness. Hospice Home Care Coordinator Required: No Allergies No Known Allergies Allergy (Verified 03/12/25 09:08) Physical Exam Vital Signs: BMI result Body Mass Index 23.6 Assessment & Plan Assessment & Plan (1) Back pain: Code(s): M54.9 - Dorsalgia, unspecified Category: Medical Plan Dear Dr Riggins, Thank you for referring Mr Mazariegos to our office today. He is a 55-year-old gentleman history of IV drug abuse, had osteomyelitis L4-5 treated at [facility] earlier this year. He was treated by Dr. Tarango with IV cefazolin with follow-up Bactrim and cefdinir for few months afterwards. He tells me that he has been discharged from further ID follow-up for resolution of the osteomyelitis. He is here because he has back pain that has persisted despite the antibiotic treatments. It is significantly better than what it was when it all started about 4- 5 months ago. However, it still very bothersome with centralized low back pain radiating down the back of his legs. His follow-up image in October showed that he had a spondylolisthesis at L4-5 with severe collapse of the disc space but there was still signs of active infection. He is here today to follow up to see if there is anything that can be done about the ongoing pain in his back and shooting down his legs. Currently reports no fevers, and has not use any IV drugs now for a few months. PMH: Reports his only medical history as the osteomyelitis and IV drug abuse. He did have hepatitis C but reports that it was treated. His medical record suggests he also had elevated LFTs as well. He has had a hernia surgery and a removal of an abscess from his thumb but other than that denies any major cardiopulmonary issues, renal or metabolic diseases. Social hx: Quit drinking, no longer smoking cigarettes. Does not use IV drugs in the longer or marijuana/recreational drugs. Medications: Methadone Allergies: None Physical exam: Awake alert oriented, he walks with a cane but can independently get up on the table, strength and reflexes are normal. Localizes his pain over the lower lumbar area by tenderness to palpation. Imaging review: Lumbar MRI done in October shows persistent enhancement of the L4 and L5 behind vertebral bodies consistent with his known history of osteomyelitis with ventral epidural abscess from L3-S1. I have no previous studies to compare to. Impression: 55-year-old gentleman history of IV drug abuse, osteomyelitis at L4-5 with epidural abscess which was diagnosed earlier this year, he was treated with IV cefazolin and follow-up Bactrim/cefdinir oral medication for few months afterwards. I do not know the exact organism of his infection. He has been cleared by his Infectious Disease team he tells me, and no longer needs to follow up with them. He has had persistent back pain and bilateral lower extremity pain however since the infection and his last MRI in October still showing signs of abscess and enhancement in the vertebral bodies at L4 and L5. It was also showing severe collapse of the disc space if not complete collapse, possible spondylolysis and bilateral L4 foraminal stenosis. Just to start, I will get some updated imaging and this will consist of a lumbar MRI with and without gadolinium to assess the residual affects of the infection. I would also like a noncontrast CT scan to evaluate for any signs of auto fusion. Once these things are completed I will review the case with Dr. Landeros, and let this gentleman know if there is anything we can do for him. Obviously he is very high risk patient for surgery given his risk to relapse with IV drug abuse, and the pain that can often accompany surgery. There was also the fact that simply having the osteomyelitis and epidural abscess may give him chronic pain in and of itself that may not be amenable to surgery. Thank you for allowing us to care for your patient. The total time spent with this visit with this patient was 45 minutes reviewing history, physical exam, lumbar imaging review, and implementation of treatment plan or further diagnostic testing Sinan Landeros MD,PhD [facility] Orders: Orders MR lumbar spine wo/w con Today M54.9 - Dorsalgia, unspecified CT lumbar spine wo IV con Today M54.9 - Dorsalgia, unspecified Coding Level of Care Code New Pt Level 4 (01523) Diagnoses Back pain M54.9
[2025-03-12 09:07] VITALS: BMI 23.6
== END 2025-03-12 09:47 | disposition home or self-care (01) ==
LOC: HO.HNS 08:58
PROVIDERS: PCP Internal Medicine; Visit Provider Physician Assistant
DX: M54.9 Dorsalgia, unspecified (principal)
CPT/HCPCS: 99204

== ENCOUNTER → 2025-03-12 08:57 | Outpatient (BNVA) | payer MEDICARE, MEDICAID, SELFPAY | PROVIDERS: PCP Internal Medicine; Visit Provider Physician Assistant | DX: M54.50 Low back pain, unspecified (principal); Z87.39 Personal history of other diseases of the musculoskeletal system and connective tissue | CPT/HCPCS: 99202 ==

== ENCOUNTER → 2025-03-24 13:21 | Outpatient (BNV) | payer MEDICARE, MEDICAID, SELFPAY | PROVIDERS: PCP Internal Medicine; Visit Provider Radiology Diagnostic Radiology | DX: M43.16 Spondylolisthesis, lumbar region (principal) | CPT/HCPCS: 72158 ==

== ENCOUNTER 2025-03-24 13:22 | Outpatient (REF) | payer MEDICARE, MEDICAID, SELFPAY ==
--- NOTE | ~2025-03-24 | MR_ITS ---
EXAMINATION: MR LUMBAR SPINE WITHOUT AND WITH CONTRAST CLINICAL INFORMATION: Osteomyelitis/abscess, L4-5. Persistent low back pain. COMPARISON: November 09, 2024. TECHNIQUE: MRI of the lumbar spine was obtained using routine sequences with and without contrast. Intravenous contrast: Gadolinium based (Gadavist) 7.0 mL. No reported immediate complications. FINDINGS: Last rib-bearing vertebra labeled T12. There is a volume loss of the vertebral bodies, with incomplete fusion/pseudoarthrosis morphology pattern at L4-5 with associated heterogeneous enhancement extending from the vertebral bodies to the posterior elements. There is epidural compartment enhancement in the circumferential fashion at L4-5 and into L5-S1 resulting in decreased AP diameter of the thecal sac and the neural foramina. There is a grade 1 retrolisthesis L3-4. There is no abnormal enhancement within the neural elements the thecal sac/conus medullaris/cauda equina/filum terminalis. 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 Overall worsening since prior exam. Electronically signed by: Vimal Garza MD 03/24/2025 02:43 PM EDT
--- OUTSIDE RECORDS SUMMARY | 2025-03-24 13:56 | XMS_ITS | Clinical Summary ---
Author Organization [address] [facility] Address [address] [place] [address] Phone Care Team Providers Care Prep Cook Name Role Phone Unavailable Primary Care Provider [...] Panel) 07/29/2022 Colorectal Cancer Screening: Colonoscopy 07/29/2022 Medicare Annual Wellness Visit 07/29/2022 Social Influencers of Health Screening 07/29/2022 COVID-19 Vaccine ( - 2023-2 5 season) 2024 Depression Screening 08/26/2024 Influenza Vaccine (#1) 2025 HIV Screening Completed [...] LAB CHEMISTRY METHOD 08/14/2024 4:33 PM EST [facility] Blood Venous blood specimen / Unknown 08/14/2024 8:45 AM EST 08/14/2024 2:11 PM EST Narrative [facility] - 08/14/2024 4:33 PM EST [...] MD LAB BLOOD ORDERABLES Fi nal Result [facility] [address] [place] [address], * (ABNORMAL) Hepatitis C virus quantitative molecular study (08/14/2024 8:45 AM EST) Pathologist [facility] HCV Qual Interp Detected (A) Not Detected LAB MOLECULAR DIAGNOSTICS METHOD 08/18/2024 10:23 AM EST [facility] HCV RNA Quantitative <12 <12 I Unit/mL LAB MOLECULAR DIAGNOSTICS METHOD 08/18/2024 10:23 AM EST [facility] Comment:HCV RNA detected but below the limit of quantitation. Unable to report quantitative results <12 IU/mL. HCV RNA Quantitative Log <1.08 <1.08 Log IU/mL LAB MOLECULAR DIAGNOSTICS METHOD 08/18/2024 10:23 AM EST [facility] Blood Venous blood specimen / Unknown 08/14/2024 8:45 AM EST 08/14/2024 2:11 PM EST Sabrina Yang MD LAB BLOOD ORDERABLES Fi nal Result [facility] [address] [place] [address], from Last 3 Months or Most Recently Relevant to Health Maintenance Insurance MEDICARE [place]ICAID - [place]
== END 2025-03-24 13:23 | disposition home or self-care (01) ==
LOC: HO.MRI 13:22
PROVIDERS: PCP Internal Medicine; Visit Provider Physician Assistant
DX: M54.9 Dorsalgia, unspecified (principal)
CPT/HCPCS: 72158; A9585

== ENCOUNTER 2025-06-07 14:27 | Outpatient (AMB) | payer MEDICARE, MEDICAID, SELFPAY ==
--- NOTE | 2025-06-07 14:29 | AM.OFFWIN_ITS ---
Intake Vital Signs 06/07/25 14:30 Height 5 ft 8 in Weight 142 lb BMI 21.6 BP 130/80 Blood Pressure Location Lt brachial Position Sitting Pulse 83 Pulse Source Pulse Oximeter Pulse Oximetry (%) 96 Intake Visit Reasons: EP-rt foot swollen & pain Intake Note: pt is here for right swollen foot, denies any specific noticeable injury, but states he does bang it a lot but has noticed swelling for 4 days Patient Tobacco Use Status: Former Tobacco user Allergies No Known Allergies Allergy (Verified 06/07/25 14:31) Do you need a note to return to daycare/school/sports/work: No HPI HPI Comments History of Present Illness Details History of Present Illness - The patient is a 55-year-old male pres enting with foot swelling and pain. - The right foot is red and swollen, cau sing discomfort when standing and difficulty wearing shoes. - There is no history of fever, chills, gout, or trauma to the foot. - The patient denies any tingling or regine n in the calf. - He denies fall, calf pain, ankle pain, knee pain, numbness, or tingling. General: Cooperative, healthy appearing, comfortable, no acute distress and well developed Orientation: Patient oriented x3 Limitations: No limitations Respiratory: Normal respiratory effort and able to speak in complete sentences. Clear to auscultation bilaterally. No w/r/r noted. Cardiovascular: Regular rate and rhythm. Normal S1 and S2 Skin: Redness and swelling noted on the foot. No open wounds noted. Neuro: Patient oriented x3. Sensation intact. Extremities: Swelling noted to the right lower leg and foot. Mild erythema noted to the anterior right lower leg and foot. No streaking noted. Warmth noted. 2-3+ pitting edema noted. FROM of the digits on the right foot. FROM of the right ankle. No TTP of the metatarsals on the right foot. Ambulates with steady gait. Patient was informed and verbally consented to the use of an ambient scribe for clinic note documentation during this visit. [facility] Medical History Leg cramps Malnutrition History of drug overdose History of fracture of vertebra History of rib fracture History of osteomyelitis Hepatitis C antibody test positive History of colon polyps Elevated liver transaminase level Normocytic normochromic anemia Methadone use History of septic arthritis IVDU (intravenous drug user) Surgical History Hx of hernia repair Family History Mother Cirrhosis of liver Father Lung cancer Maternal Grandfather Colon cancer Social History Housing: House Alcohol intake: never Patient Tobacco Use Status: Former Tobacco user Tobacco use type: Cigarette Cigarettes Per Day: 2 e-Cigarette/Vaping Use: Never Used Substance Use Type: Crack/Cocaine and Heroin service: No Current occupational status: employed Current occupation: home health care Current occupational exposures/hazards: No Cognitive needs: No Hearing needs: No Vision needs: Yes (reading glasses) Review of Systems Const All systems reviewed & are unremarkable except as noted in HPI and below Physical Exam Vital Signs: Last Vital Signs Pulse 83 06/07/25 14:30 BP 130/80 06/07/25 14:30 Pulse Ox 96 06/07/25 14:30 BMI result Body Mass Index 21.6 Assessment & Plan Assessment & Plan (1) Swelling of right foot: Code(s): M79.89 - Other specified soft tissue disorders Plan Most likely cellulitis vs dependent edema vs fracture vs strain 1. Foot Swelling - Considered possible cellulitis as a cause of swelling. - Recommended antibiotics to address potential infection. - Discussed the option of using a Velcro shoe to accommodate swelling. - offered pt an x-ray to r/o fracture and pt declined - rest, ice and elevation - follow up with PCP if no better Medications: New doxycycline hyclate 100 mg PO BID 20 tabs 0RF 10 days Coding Level of Care Code Est Pt Level 3 (05905) Diagnoses Swelling of right foot M79.89
[2025-06-07 14:30] VITALS: BP 130/80; PULSE 83; O2SAT 96; BMI 21.6
--- OUTSIDE RECORDS SUMMARY | 2025-06-07 14:30 | XMS_ITS | Encounter Summary ---
Author Organization [employer] Address [address] [place] [address] Care Team Providers Care Structural Fitter Name Role Phone Unavailable Primary Care Provider Unavailabl e Encounter Details Date Type Department Care Team (Late st Contact Info) Description 08/14/[address] [facility] - Main Lab [address] [facility] [place] [address] Sabrina Yang MD [address] [place] [address] Encounter for screening for infections with a predominantly sexual mode of transmission; Opioid dependence, uncomplicated (CMS/HCC V24, CMS/HCC V28) Social History Tobacco Use Types Packs/Day Years [...] LAB CHEMISTRY METHOD 08/18/2024 2:00 PM EST [facility] AST (SGOT) 25 10 - 42 unit/L LAB CHEMISTRY METHOD 08/18/2024 2:00 PM EST [facility] Total Bilirubin 0.2 0.0 - 1.4 mg/dL LAB CHEMISTRY METHOD 08/18/2024 2:00 PM EST [facility] Blood Venous blood specimen / Unknown 08/14/2024 8:45 AM EST 08/14/2024 2:11 PM EST Sabrina Yang MD LAB BLOOD ORDERABLES Fi nal Result Performing Organization Address [facility] de Phone Number [facility] [address] [place] [address], [place] [phone] * Hepatitis A antibody IgM (08/14/2024 8:45 AM EST) Hepatitis A Antibody IgM Negative Negative LAB CHEMISTRY METHOD 08/14/2024 4:40 PM EST [facility] Blood Venous blood specimen / Unknown 08/14/2024 8:45 AM EST 08/14/2024 2:11 PM EST Narrative [facility] - 08/14/2024 4:40 PM EST Over the counter supplements containing high doses of biotin may interfere with this assay. If interference is suspected, patients shoud be retested after refraining from biotin supplements for 72 hours. Sabrina Yang MD LAB BLOOD ORDERABLES Fi nal Result Performing Organization Address [facility] Co de Phone Number [facility] [address] [place] [address], [place] [phone] * Hepatitis A antibody total with reflex IgM (08/14/2024 8:45 AM EST) Hep A Total Ab Negative Negative LAB CHEMISTRY METHOD 08/14/2024 4:38 PM EST [facility] Blood Venous blood specimen / Unknown 08/14/2024 8:45 AM EST 08/14/2024 2:11 PM EST Narrative [facility] - 08/14/2024 4:38 PM EST Over the counter supplements containing high doses of biotin may interfere with this assay. If interference is suspected, patients shoud be retested after refraining from biotin supplements for 72 hours. Sabrina Yang MD LAB BLOOD ORDERABLES Fi nal Result Performing Organization Address [facility] de Phone Number [facility] [address] [place] [address], * HIV 1,2 antibody, p24 antigen with reflex to differentiation (08/14/2024 8:45 AM EST) HIV Combo AB/AG Negative Negative LAB CHEMISTRY METHOD 08/14/2024 4:33 PM EST [facility] Blood Venous blood specimen / Unknown 08/14/2024 8:45 AM EST 08/14/2024 2:11 PM EST Narrative [facility] - 08/14/2024 4:33 PM EST [...] ORDERABLES Fi nal Result Performing Organization Address [facility] Co de Phone Number [facility] [address] [place] [address], [place] [phone] * Hepatitis B core antibody, total (08/14/2024 8:45 AM EST) Hep B Core Total Ab Negative Negative LAB CHEMISTRY METHOD 08/14/2024 4:39 PM EST [facility] Blood Venous blood specimen / Unknown 08/14/2024 8:45 AM EST 08/14/2024 2:11 PM EST Sabrina Yang MD LAB BLOOD ORDERABLES Fi nal Result Performing Organization Address [facility]/ZIP Co de Phone Number [facility] [address] [place] [address], * Hepatitis B surface antigen with reflex to confirmation (08/14/2024 8:45 AM EST) Hepatitis B Surface Ag Negative Negative LAB CHEMISTRY METHOD 08/14/2024 4:04 PM EST [facility] Blood Venous blood specimen / Unknown 08/14/2024 8:45 AM EST 08/14/2024 2:11 PM EST [facility] - 08/14/2024 4:04 PM EST Over the counter supplements containing high doses of biotin may interfere with this assay. If interference is suspected, patients shoud be retested after refraining from biotin supplements for 72 hours. Sabrina Yang MD LAB BLOOD ORDERABLES Fi nal Result Performing Organization Address [facility]/ZIP Co de Phone Number [facility] [address] [place] [address], * Hepatitis B surface antibody (08/14/2024 8:45 AM EST) Hepatitis B Surface Ab Negative Negative LAB CHEMISTRY METHOD 08/14/2024 3:54 PM EST [facility] Hepatitis B Surface Ab Quantitative <3.1 mIU/mL LAB CHEMISTRY METHOD 08/14/2024 3:54 PM EST [facility] Blood Venous blood specimen / Unknown 08/14/2024 8:45 AM EST 08/14/2024 2:11 PM EST [facility] - 08/14/2024 3:54 PM EST >=10 mIU/mL is considered to be consistent with immunity. Sabrina Yang MD LAB BLOOD ORDERABLES Fi nal Result [facility] [address] [place] [address], [place] [phone] * Treponema pallidum antibody with reflex to RPR and particle agglutination (08/14/2024 8:45 AM EST) Pathologist [facility] T. Pallidum Antibodies Negative Negative LAB CHEMISTRY METHOD 08/14/2024 4:04 PM EST [facility] Blood Venous blood specimen / Unknown 08/14/2024 8:45 AM EST 08/14/2024 2:11 PM EST Sabrina Yang MD LAB BLOOD ORDERABLES Fi nal Result Performing Organization Address [facility]/ZIP Co de Phone Number [facility] [address] [place] [address], [place] [phone] * (ABNORMAL) Hepatitis C virus quantitative molecular study (08/14/2024 8:45 AM EST) [facility] HCV Qual Interp Detected (A) Not Detected LAB MOLECULAR DIAGNOSTICS METHOD 08/18/2024 10:23 AM EST [facility] HCV RNA Quantitative <12 <12 I Unit/mL LAB MOLECULAR DIAGNOSTICS METHOD 08/18/2024 10:23 AM [facility] Comment:HCV RNA detected but below the limit of quantitation. Unable to report quantitative results <12 IU/mL. HCV RNA Quantitative Log <1.08 <1.08 Log IU/mL LAB MOLECULAR DIAGNOSTICS METHOD 08/18/2024 10:23 AM EST [facility] Blood Venous blood specimen / Unknown 08/14/2024 8:45 AM EST 08/14/2024 2:11 PM EST us Sabrina Yang MD LAB BLOOD ORDERABLES Fi nal Result [facility] [address] [place] [address], [place] [phone] * Comprehensive metabolic panel (08/14/2024 8:45 AM EST) Sodium 139 133 - 145 mmol/L LAB CHEMISTRY METHOD 08/14/2024 3:47 PM [facility] Potassium 5.1 3.5 - 5.5 mmol/L LAB CHEMISTRY METHOD 08/14/2024 3:47 PM [facility] Chloride 105 96 - 110 mmol/L LAB CHEMISTRY METHOD 08/14/2024 3:47 PM [facility] CO2 30 21 - 32 mmol/L LAB CHEMISTRY METHOD 08/14/2024 3:47 PM [facility] Anion Gap 4 3 - 11 LAB CHEMISTRY METHOD 08/14/2024 3:47 PM [facility] Glucose 92 70 - 100 mg/dL LAB CHEMISTRY METHOD 08/14/2024 3:47 PM [facility] BUN 20 5 - 25 mg/dL LAB CHEMISTRY METHOD 08/14/2024 3:47 PM [facility] Creatinine 0.80 0.70 - 1.30 mg/dL LAB CHEMISTRY METHOD 08/14/2024 3:47 PM [facility] eGFR 106 >=60 mL/min/1. 73m2 LAB CHEMISTRY METHOD 08/14/2024 3:47 PM [facility] Comment:Calculation based on the Chronic Kidney Disease Epidemiology Collaboration (CKD-EPI) equation refit without adjustment for race. BUN/Creatinine Ratio 25.0 LAB CHEMISTRY METHOD 08/14/2024 3:47 PM [facility] Calcium 9.2 8.5 - 10.5 mg/dL LAB CHEMISTRY METHOD 08/14/2024 3:47 PM [facility] AST (SGOT) 25 10 - 42 unit/L LAB CHEMISTRY METHOD 08/14/2024 3:47 PM [facility] ALT (SGPT) 21 10 - 60 unit/L LAB CHEMISTRY METHOD 08/14/2024 3:47 PM [facility] Alkaline Phosphatase 90 42 - 121 unit/L LAB CHEMISTRY METHOD 08/14/2024 3:47 PM [facility] Total Protein 7.6 6.0 - 8.0 g/dL LAB CHEMISTRY METHOD 08/14/2024 3:47 PM [facility] Albumin 3.7 3.2 - 5.0 g/dL LAB CHEMISTRY METHOD 08/14/2024 3:47 PM [facility] Total Bilirubin 0.2 0.0 - 1.4 mg/dL LAB CHEMISTRY METHOD 08/14/2024 3:47 PM [facility] Blood Venous blood specimen / Unknown 08/14/2024 8:45 AM EST 08/14/2024 2:11 PM EST Sabrina Yang MD LAB BLOOD ORDERABLES Fi nal Result [facility] [address] [place] [address], * Complete blood count (08/14/2024 8:45 AM EST) WBC 6.6 4.8 - 10.8 K/mcL LAB HEMETOLOGY METHOD 08/14/2024 2:17 PM [facility] RBC 4.80 4.50 - 5.50 M/mcL LAB HEMETOLOGY METHOD 08/14/2024 2:17 PM [facility] Hemoglobin 14.0 13.5 - 17.5 g/dL LAB HEMETOLOGY METHOD 08/14/2024 2:17 PM [facility] Hematocrit 42.5 42.0 - 54.0 % LAB HEMETOLOGY METHOD 08/14/2024 2:17 PM [facility] MCV 88.9 79.0 - 98.0 FL LAB HEMETOLOGY METHOD 08/14/2024 2:17 PM EST [facility] MCH 29.3 27.0 - 32.0 pcg LAB HEMETOLOGY METHOD 08/14/2024 2:17 PM [facility] MCHC 32.9 32.0 - 37.0 g/dL LAB HEMETOLOGY METHOD 08/14/2024 2:17 PM EST [facility] RDW 12.3 11.0 - 15.0 % LAB HEMETOLOGY METHOD 08/14/2024 2:17 PM EST [facility] Platelets 216 130 - 400 K/mcL LAB HEMETOLOGY METHOD 08/14/2024 2:17 PM [facility] MPV 9.4 7.0 - 11.0 FL LAB HEMETOLOGY METHOD 08/14/2024 2:17 PM EST [facility] NRBC 0.0 <1.0 % LAB HEMETOLOGY METHOD 08/14/2024 2:17 PM [facility] NRBC Absolute 0.00 <0.10 K/mcL LAB HEMETOLOGY METHOD 08/14/2024 2:17 PM [facility] Blood Venous blood specimen / Unknown 08/14/2024 8:45 AM EST 08/14/2024 2:11 PM EST us Sabrina Yang MD LAB BLOOD ORDERABLES Fi nal Result [facility] [address] [place] [address], documented in this encounter Visit Diagnoses Diagnosis Encounter for screening for infections with a predominantly sexual mode of transmission Opioid dependence, uncomplicated (CMS/HCC V24, CMS/HCC V28) documented in this encounter
--- OUTSIDE RECORDS SUMMARY | 2025-06-07 14:30 | XMS_ITS | Clinical Summary ---
Author Organization [address] [facility] Address [address] [place] [address] Phone Care Team Providers Care Hvac R Tech Name Role Phone Unavailable Primary Care Provider Unavailabl e Social History Tobacco Use Types Packs/Day Years Used Date Smoking Tobacco: Never Assessed Sex and Gender Information Value Date Recorded Sex Assigned at Not on file Legal Sex Male 12:06 AM EST Gender Identity Not on file Sexual Orientation Not on file Plan of Treatment Health Maintenance Due Date Last Done Comments Colorectal Cancer Screening: Colonoscopy 1971 DTaP,Tdap,and Td Vaccines (1 - Tdap) 1990 Hepatitis A Vaccines (1 of 2 - Risk 2-dose series) 1990 Hepatitis B Vaccines (1 of 3 - 19+ 3-dose series) 1990 Pneumococcal Vaccine: 50+ Ye ars (1 of 1 - PCV) 2021 Zoster Vaccines (1 of 2) 2021 Cholesterol Screening (Lipid Panel) 07/29/2022 Medicare Annual Wellness Visit 07/29/2022 Social Influencers of Health Screening 07/29/2022 Depression Screening 08/26/2024 COVID-19 Vaccine ( - 2023-2 5 season) 2025 Influenza Vaccine (#1) 2025 RSV Immunization Adult Patie nts (1 - 1-dose 75+ series) 2046 HIV Screening Completed 08/14/2024 Hepatitis C Screening [...] reflex to differentiation (08/14/2024 8:45 AM EST) Pathologist [facility] HIV Combo AB/AG Negative Negative LAB CHEMISTRY [...] nal Result [facility] [address] [place] [address], * (ABNORMAL) Hepatitis C virus quantitative molecular study (08/14/2024 8:45 AM EST) HCV Qual Interp Detected (A) Not Detected LAB MOLECULAR DIAGNOSTICS METHOD 08/18/2024 10:23 AM EST [facility] HCV RNA Quantitative <12 <12 I Unit/mL LAB MOLECULAR DIAGNOSTICS METHOD 08/18/2024 10:23 AM [facility] Comment:HCV RNA detected but below [...] nal Result [facility] [address] [place] [address], from Last 3 Months or Most Recently Relevant to Health Maintenance Insurance [address] [place] [address] MEDICARE [place]ICAID - [place]
== END 2025-06-07 15:19 | disposition home or self-care (01) ==
PROVIDERS: PCP Internal Medicine; Visit Provider Physician Assistant Medical
DX: M79.89 Other specified soft tissue disorders (principal)

== ENCOUNTER → 2025-06-07 14:27 | Outpatient (BNVA) | payer MEDICARE, MEDICAID, SELFPAY | PROVIDERS: PCP Internal Medicine; Visit Provider Physician Assistant Medical | DX: M79.671 Pain in right foot (principal); M79.89 Other specified soft tissue disorders | CPT/HCPCS: 99212 ==

== ENCOUNTER 2025-06-21 10:47 | Outpatient (AMB) | payer MEDICARE, MEDICAID, SELFPAY ==
--- NOTE | 2025-06-21 11:28 | AM.OFFVISMDC ---
Intake Vital Signs 06/21/25 11:33 Height 5 ft 8 in Weight 142 lb BMI 21.6 BP 102/68 Blood Pressure Location Rt brachial Position Sitting Respiration 15 Pulse 78 Pulse Source Pulse Oximeter Temp 97.8 F Temp Source Oral Pulse Oximetry (%) 97 Oxygen Delivery Method Room Air Intake Visit Reasons: The IMO content you are accessing is 32 months old. To get updated IMO content, please contact your IT Dept/Help Desk requesting the latest release. IT Dept/Help Desk- Please refer to our FAQ page ([email or web address]) or contact IMO Customer Support at [email or web address] [email or web address] Note: Pt is here today for his physical exam Allergies No Known Allergies Allergy (Verified 06/21/25 11:47) Medication List - Last Reconciled 06/21/25 by Yuridia Riggins MD methadone (Methadone Intensol) 80 mg PO DAILY PFSH Medical History Leg cramps Malnutrition History of drug overdose History of fracture of vertebra History of rib fracture History of osteomyelitis Hepatitis C antibody test positive History of colon polyps Elevated liver transaminase level Normocytic normochromic anemia Methadone use History of septic arthritis IVDU (intravenous drug user) Surgical History Hx of hernia repair Family History Mother Cirrhosis of liver Father Lung cancer Maternal Grandfather Colon cancer Social History Housing: House Alcohol intake: never Patient Tobacco Use Status: Former Tobacco user Tobacco use type: Cigarette Cigarettes Per Day: 2 e-Cigarette/Vaping Use: Never Used Substance Use Type: Crack/Cocaine and Heroin service: No Current occupational status: employed Current occupation: home health care Current occupational exposures/hazards: No Cognitive needs: No Hearing needs: No Vision needs: Yes (reading glasses) Questionnaire Mini Mental State Exam (MMSE) Orientation What is the (year) (season) (date) (day) (month)?: year (2024), season (Fall), date, day (Saturday ) and month (May) Where are we (state) (county) (town or city) (hospital) (floor)?: state [place]), county [place] ), town or city ([place]) and hospital/clinic ([facility]) Score Score: 9 Physical Exam Vital Signs: Last Vital Signs Temp 97.8 F 06/21/25 11:33 Pulse 78 06/21/25 11:33 Resp 15 06/21/25 11:33 BP 102/68 06/21/25 11:33 Pulse Ox 97 06/21/25 11:33 Oxygen Delivery Method Room Air 06/21/25 11:33 BMI result Body Mass Index 21.6 Coding Diagnoses IMO-PROB-0
[2025-06-21 11:33] VITALS: BP 102/68; PULSE 78; RESP 15; TEMP 36.6; O2SAT 97; BMI 21.6
--- NOTE | 2025-06-21 11:57 | A.OFFPC_ITS ---
Vital Signs 06/21/25 11:33 Height 5 ft 8 in Weight 142 lb BMI 21.6 BP 102/68 Blood Pressure Location Rt brachial Position Sitting Respiration 15 Pulse 78 Pulse Source Pulse Oximeter Temp 97.8 F Temp Source Oral Pulse Oximetry (%) 97 Oxygen Delivery Method Room Air Intake Visit Reasons: Annual PE Intake Note: Pt is here today for his PE Allergies No Known Allergies Allergy (Verified 06/21/25 11:47) Medication List - Last Reconciled 06/21/25 by Yuridia Riggins MD methadone (Methadone Intensol) 80 mg PO DAILY Tobacco use date assessed: 06/21/25 Dental Screening Dental Screen Date: 01/20/25 [facility] Medical History Leg cramps Malnutrition History of drug overdose History of fracture of vertebra History of rib fracture History of osteomyelitis Hepatitis C antibody test positive History of colon polyps Elevated liver transaminase level Normocytic normochromic anemia Methadone use History of septic arthritis IVDU (intravenous drug user) Surgical History Hx of hernia repair Family History Mother Cirrhosis of liver Father Lung cancer Maternal Grandfather Colon cancer Social History Housing: House Alcohol intake: never Patient Tobacco Use Status: Former Tobacco user Tobacco use type: Cigarette Cigarettes Per Day: 2 e-Cigarette/Vaping Use: Never Used Substance Use Type: Crack/Cocaine and Heroin service: No Current occupational status: employed Current occupation: home health care Current occupational exposures/hazards: No Cognitive needs: No Hearing needs: No Vision needs: Yes (reading glasses) Questionnaire PHQ-9 Over the last 2 weeks, how often have you been bothered by any of the following problems? 1. Little interest or pleasure in doing things: not at all 2. Feeling down, depressed, or hopeless: not at all 3. Trouble falling or staying asleep, or sleeping too much: several days 4. Feeling tired or having little energy: several days 5. Poor appetite or overeating: several days 6. Feeling bad about yourself - or that you are a failure or have let yourself or your family down: not at all 7. Trouble concentrating on things, such as reading the newspaper or watching television: not at all 8. Moving or speaking so slowly that other people could have noticed. Or the opposite - being so fidgety or restless that you have been moving around a lot more than usual: not at all 9. Thoughts that you would be better off or of hurting yourself in some way: not at all Total score: 3 Depression Screening Interpretation: Negative Depression Screening Done: Yes 04225 - PHQ-9 Billing: Yes Source: Developed by Drs. Chaparro Weller, Jeannette Oakes, Gualberto Wild and colleagues, with an educational jake from [employer]. Thrive Questionnaire Date Thrive assessed: 01/20/25 I am a: Patient What is your living situation today?: I have a steady place to live Within the past 12 months, did the food you bought not last and you didn't have the money to get more?: Never true Within the past 12 months, did you worry whether your food would run out before you got money to buy more?: Never true Do you have trouble paying for medicines?: No Do you have trouble getting transportation to medical appointments?: No Do you have trouble paying your heating and electricity bill?: No Do you have trouble taking care of your child, family member or friend?: No Do you have trouble with day-to-day activities such as bathing, preparing meals, shopping, managing finances, etc.?: No Are you currently unemployed and looking for a job?: Yes Are you interested in more education?: No Please select the resources that you would like help with: None Currently or been in a relationship where the following occur: No concerns reported THRIVE Score: 0 AUDIT C Alcohol Use Questionnaire (AUDIT-C) 1. How often do you have a drink containing alcohol?: Never Total Score: 0 MELISSA-7 AMB Questionnaire MELISSA-7 Date MELISSA - 7 assessed: 01/20/25 Source: Developed by Drs. Chaparro Weller, Jeannette Oakes, Gualberto Wild and colleagues, with an educational jake from [employer]. Physical exam (Primary Care) Vital Signs: Last Vital Signs Temp 97.8 F 06/21/25 11:33 Pulse 78 06/21/25 11:33 Resp 15 06/21/25 11:33 BP 102/68 06/21/25 11:33 Pulse Ox 97 06/21/25 11:33 Oxygen Delivery Method Room Air 06/21/25 11:33 BMI result Body Mass Index 21.6 Tobacco/Smoking Status: Tobacco use Status Tobacco use date assessed 06/21/25 06/21/25 11:58 Patient Tobacco Use Status Former Tobacco user 06/21/25 11:58 Tobacco use type Cigarette 06/21/25 11:58 e-Cigarette/Vaping Use Never Used 06/21/25 11:58 PHQ-9: PHQ-9 Score PHQ-9: Total score 3 06/21/25 11:58 Depression Screening Interpretation: Negative Thrive Assessment: Date of Thrive Assessment Date Thrive assessed 01/20/25 06/21/25 11:58 Currently or been in a relationship where the following occur: No concerns reported Advance Care Planning discussion: Completed/Scanned Date of discussion: 06/21/25 Who was present: Patient Forms completed: Health Care Proxy Time spent: 16-45 minutes Actual minutes spent: 2 Office Procedures Flu Questionnaire Does the patient have a severe egg allergy?: No Does the patient have severe life threatening allergies?: No Does the patient have a fever or illness today?: No Has the patient ever had Guillain-Hazard Syndrome?: No Has the patient ever had any past reaction to a flu shot?: No Immunizations Fluarix 7427-1560 (PF) 45 mcg (15 mcg x 3)/0.5 mL IM syringe Performing Provider: Yuridia Riggins MD Performing Location: [facility] Administered by: Airam Curry CMA on 06/21/25 12:10 Dose Route Admin Location Dispensed Lot Number Expiration Date [facility] Women'S Apparel Salesperson 0.5 mL IM Right Deltoid 0.5 mL [id number] 02/22/26 74700-846-64 [employer] VIS Given Date VIS Provided VIS Publication Date 06/21/25 Single Vaccine 24 Eligibility Eligibility Date Funding Source Not [facility] Eligible 06/21/25 Private Coding Diagnoses Hepatitis C antibody test positive R76.8 History of colon polyps Z86.010 Colon cancer screening Z12.11 Additional Codes PHQ-9 - 39583 - PHQ-9 Billing: Yes ([id number]) Vital Signs *Quality* - Advance Care Planning discussion: Completed/Scanned ([id number]) Vital Signs *Quality* - Time spent: 16-45 minutes ([id number]) Assessment & Plan Assessment & Plan (1) Hepatitis C antibody test positive: Code(s): R76.8 - Other specified abnormal immunological findings in serum Category: Medical (2) History of colon polyps: Code(s): Z86.010 - Personal history of colon polyps Category: Medical (3) Colon cancer screening: Code(s): Z12.11 - Encounter for screening for malignant neoplasm of colon Orders: Orders Comprehensive [place]. Panel Fast Today R76.8 - Other specified abnormal immunological findings in serum Lipid Panel Today R76.8 - Other specified abnormal immunological findings in serum Hepatitis C Genotype Today R76.8 - Other specified abnormal immunological findings in serum Complete Blood Count Auto Diff Today R76.8 - Other specified abnormal immunological findings in serum Hepatitis C Antibody Today R76.8 - Other specified abnormal immunological findings in serum Hepatitis C Viral Load Today R76.8 - Other specified abnormal immunological findings in serum Influenza [id number] Immunization Today Z23 - Encounter for immunization Referrals Gastroenterology Referral R76.8 - Other specified abnormal immunological findings in serum, Z12.11 - Encounter for screening for malignant neoplasm of colon, Z86.010 - Personal history of colon polyps
--- OUTSIDE RECORDS SUMMARY | 2025-06-21 13:22 | XMS_ITS | Encounter Summary ---
Author Organization [employer] Address [address] [place] [address] Care Team Providers Care Games Dealer Name Role Phone Unavailable Primary Care Provider Unavailabl e Encounter Details Date Type Department Care Team (Late st Contact Info) Description 08/14/2024 Lab Requisition [facility] Main Lab [address] [facility] [place] [address] Sabrina Yang MD [address] [place] [address] Encounter for screening for infections with a [...] LAB CHEMISTRY METHOD 08/18/2024 2:00 PM EST [facility] AST (SGOT) 25 10 - 42 unit/L LAB CHEMISTRY METHOD 08/18/2024 2:00 PM EST [facility] Total Bilirubin 0.2 0.0 - 1.4 mg/dL LAB CHEMISTRY METHOD 08/18/2024 2:00 PM EST [facility] Blood Venous blood specimen / Unknown 08/14/2024 8:45 AM EST 08/14/2024 2:11 PM EST Sabrina Yang MD LAB BLOOD ORDERABLES Fi nal Result Performing Organization Address [facility][1] de Phone Number [facility] [address] [place] [address], [place] [phone] * Hepatitis A antibody IgM (08/14/2024 8:45 AM EST) Hepatitis A Antibody IgM Negative Negative LAB CHEMISTRY METHOD 08/14/2024 4:40 PM EST [facility] Blood Venous blood specimen / Unknown 08/14/2024 8:45 AM EST 08/14/2024 2:11 PM EST Narrative [facility] - 08/14/2024 4:40 PM EST Over the counter supplements containing high doses of biotin may interfere with this assay. If interference is suspected, patients shoud be retested after refraining from biotin supplements for 72 hours. Sabrina Yang MD LAB BLOOD ORDERABLES Fi nal Result Performing Organization Address [facility] Co de Phone Number [facility] [address] [place] [address], [place] [phone] * Hepatitis A antibody total with reflex IgM (08/14/2024 8:45 AM EST) Hep A Total Ab Negative Negative LAB CHEMISTRY METHOD 08/14/2024 4:38 PM EST [facility] Blood Venous blood specimen / Unknown 08/14/2024 8:45 AM EST 08/14/2024 2:11 PM EST Narrative [facility] - 08/14/2024 4:38 PM EST Over the counter supplements containing high doses of biotin may interfere with this assay. If interference is suspected, patients shoud be retested after refraining from biotin supplements for 72 hours. Sabrina Yang MD LAB BLOOD ORDERABLES Fi nal Result Performing Organization Address [facility] de Phone Number [facility] [address] [place] [address], * HIV 1,2 antibody, p24 antigen with reflex to differentiation (08/14/2024 8:45 AM EST) HIV Combo AB/AG Negative Negative LAB CHEMISTRY METHOD 08/14/2024 4:33 PM EST [facility] Blood Venous blood specimen / Unknown 08/14/2024 8:45 AM EST 08/14/2024 2:11 PM EST Narrative [facility] - 08/14/2024 4:33 PM EST [...] ORDERABLES Fi nal Result Performing Organization Address [facility] Co de Phone Number [facility] [address] [place] [address], [place] [phone] * Hepatitis B core antibody, total (08/14/2024 8:45 AM EST) Hep B Core Total Ab Negative Negative LAB CHEMISTRY METHOD 08/14/2024 4:39 PM EST [facility] Blood Venous blood specimen / Unknown 08/14/2024 8:45 AM EST 08/14/2024 2:11 PM EST Sabrina Yang MD LAB BLOOD ORDERABLES Fi nal Result Performing Organization Address [facility]/ZIP Co de Phone Number [facility] [address] [place] [address], * Hepatitis B surface antigen with reflex to confirmation (08/14/2024 8:45 AM EST) Hepatitis B Surface Ag Negative Negative LAB CHEMISTRY METHOD 08/14/2024 4:04 PM EST [facility] Blood Venous blood specimen [...] ORDERABLES Fi nal Result Performing Organization Address [facility]/ZIP Co de Phone Number [facility] [address] [place] [address], * Hepatitis B surface antibody (08/14/2024 8:45 AM EST) Hepatitis B Surface Ab Negative Negative LAB CHEMISTRY METHOD 08/14/2024 3:54 PM EST [facility] Hepatitis B Surface Ab Quantitative <3.1 mIU/mL LAB CHEMISTRY METHOD 08/14/2024 3:54 PM EST [facility] Blood Venous blood specimen / Unknown 08/14/2024 8:45 AM EST 08/14/2024 2:11 PM EST [facility] - 08/14/2024 3:54 PM EST >=10 mIU/mL is considered to be consistent with immunity. Sabrina Yang MD LAB BLOOD ORDERABLES Fi nal Result [facility] [address] [place] [address], [place] [phone] * Treponema pallidum antibody with reflex to RPR and particle agglutination (08/14/2024 8:45 AM EST) Pathologist [facility] T. Pallidum Antibodies Negative Negative LAB CHEMISTRY METHOD 08/14/2024 4:04 PM EST [facility] Blood Venous blood specimen / Unknown 08/14/2024 8:45 AM EST 08/14/2024 2:11 PM EST Sabrina Yang MD LAB BLOOD ORDERABLES Fi nal Result Performing Organization Address [facility]/ZIP Co de Phone Number [facility] [address] [place] [address], [place] [phone] * (ABNORMAL) Hepatitis C virus quantitative molecular study (08/14/2024 8:45 AM EST) [facility] HCV Qual Interp Detected (A) Not Detected LAB MOLECULAR DIAGNOSTICS METHOD 08/18/2024 10:23 AM EST [facility] HCV RNA Quantitative <12 <12 I Unit/mL LAB MOLECULAR DIAGNOSTICS METHOD 08/18/2024 10:23 AM [facility] Comment:HCV RNA detected but below the limit of quantitation. Unable to report quantitative results <12 IU/mL. HCV RNA Quantitative Log <1.08 <1.08 Log IU/mL LAB MOLECULAR DIAGNOSTICS METHOD 08/18/2024 10:23 AM EST [facility] Blood Venous blood specimen / Unknown 08/14/2024 8:45 AM EST 08/14/2024 2:11 PM EST us Sabrina Yang MD LAB BLOOD ORDERABLES Fi nal Result [facility] [address] [place] [address], [place] [phone] * Comprehensive metabolic panel (08/14/2024 8:45 AM EST) Sodium 139 133 - 145 mmol/L LAB CHEMISTRY METHOD 08/14/2024 3:47 PM [facility] Potassium 5.1 3.5 - 5.5 mmol/L LAB CHEMISTRY METHOD 08/14/2024 3:47 PM [facility] Chloride 105 96 - 110 mmol/L LAB CHEMISTRY METHOD 08/14/2024 3:47 PM [facility] CO2 30 21 - 32 mmol/L LAB CHEMISTRY METHOD 08/14/2024 3:47 PM [facility] Anion Gap 4 3 - 11 LAB CHEMISTRY METHOD 08/14/2024 3:47 PM [facility] Glucose 92 70 - 100 mg/dL LAB CHEMISTRY METHOD 08/14/2024 3:47 PM [facility] BUN 20 5 - 25 mg/dL LAB CHEMISTRY METHOD 08/14/2024 3:47 PM [facility] Creatinine 0.80 0.70 - 1.30 mg/dL LAB CHEMISTRY METHOD 08/14/2024 3:47 PM [facility] eGFR 106 >=60 mL/min/1. 73m2 LAB CHEMISTRY METHOD 08/14/2024 3:47 PM [facility] Comment:Calculation based on the Chronic Kidney Disease Epidemiology Collaboration (CKD-EPI) equation refit without adjustment for race. BUN/Creatinine Ratio 25.0 LAB CHEMISTRY METHOD 08/14/2024 3:47 PM [facility] Calcium 9.2 8.5 - 10.5 mg/dL LAB CHEMISTRY METHOD 08/14/2024 3:47 PM [facility] AST (SGOT) 25 10 - 42 unit/L LAB CHEMISTRY METHOD 08/14/2024 3:47 PM [facility] ALT (SGPT) 21 10 - 60 unit/L LAB CHEMISTRY METHOD 08/14/2024 3:47 PM [facility] Alkaline Phosphatase 90 42 - 121 unit/L LAB CHEMISTRY METHOD 08/14/2024 3:47 PM [facility] Total Protein 7.6 6.0 - 8.0 g/dL LAB CHEMISTRY METHOD 08/14/2024 3:47 PM [facility] Albumin 3.7 3.2 - 5.0 g/dL LAB CHEMISTRY METHOD 08/14/2024 3:47 PM [facility] Total Bilirubin 0.2 0.0 - 1.4 mg/dL LAB CHEMISTRY METHOD 08/14/2024 3:47 PM [facility] Blood Venous blood specimen / Unknown 08/14/2024 8:45 AM EST 08/14/2024 2:11 PM EST Sabrina Yang MD LAB BLOOD ORDERABLES Fi nal Result [facility] [address] [place] [address], * Complete blood count (08/14/2024 8:45 AM EST) WBC 6.6 4.8 - 10.8 K/mcL LAB HEMETOLOGY METHOD 08/14/2024 2:17 PM [facility] RBC 4.80 4.50 - 5.50 M/mcL LAB HEMETOLOGY METHOD 08/14/2024 2:17 PM [facility] Hemoglobin 14.0 13.5 - 17.5 g/dL LAB HEMETOLOGY METHOD 08/14/2024 2:17 PM [facility] Hematocrit 42.5 42.0 - 54.0 % LAB HEMETOLOGY METHOD 08/14/2024 2:17 PM [facility] MCV 88.9 79.0 - 98.0 FL LAB HEMETOLOGY METHOD 08/14/2024 2:17 PM EST [facility] MCH 29.3 27.0 - 32.0 pcg LAB HEMETOLOGY METHOD 08/14/2024 2:17 PM [facility] MCHC 32.9 32.0 - 37.0 g/dL LAB HEMETOLOGY METHOD 08/14/2024 2:17 PM EST [facility] RDW 12.3 11.0 - 15.0 % LAB HEMETOLOGY METHOD 08/14/2024 2:17 PM EST [facility] Platelets 216 130 - 400 K/mcL LAB HEMETOLOGY METHOD 08/14/2024 2:17 PM [facility] MPV 9.4 7.0 - 11.0 FL LAB HEMETOLOGY METHOD 08/14/2024 2:17 PM EST [facility] NRBC 0.0 <1.0 % LAB HEMETOLOGY METHOD 08/14/2024 2:17 PM [facility] NRBC Absolute 0.00 <0.10 K/mcL LAB HEMETOLOGY METHOD 08/14/2024 2:17 PM [facility] Blood Venous blood specimen / Unknown 08/14/2024 8:45 AM EST 08/14/2024 2:11 PM EST us Sabrina Yang MD LAB BLOOD ORDERABLES Fi nal Result [facility] [address] [place] [address], documented in this encounter Visit Diagnoses Diagnosis Encounter for screening for infections with a predominantly sexual mode of transmission Opioid dependence, uncomplicated (CMS/HCC V24, CMS/HCC V28) documented in this encounter
--- OUTSIDE RECORDS SUMMARY | 2025-06-21 13:22 | XMS_ITS | Clinical Summary ---
Author Organization [address] [facility] Address [address] [place] [address] Phone Care Team Providers Care Paper Maker Name Role Phone Unavailable Primary Care Provider [...] LAB CHEMISTRY METHOD 08/14/2024 4:33 PM EST [facility] Blood Venous blood specimen / Unknown 08/14/2024 8:45 AM EST 08/14/2024 2:11 PM EST Narrative [facility] - 08/14/2024 4:33 PM EST This assay is a 4th generation assay allowing for earlier detection of HIV infection by detecting the presence of the HIV-1 p24 antigen as well as the traditional antibodies to HIV type 1 (including group O) and type 2. Use of a 4th generation assay is the current CDC recommendation for HIV screening. us Sabrina aYng MD LAB BLOOD ORDERABLES Fi nal Result [facility] [address] [place] [address], * (ABNORMAL) Hepatitis C virus quantitative molecular study (08/14/2024 8:45 AM EST) HCV Qual Interp Detected (A) Not Detected LAB MOLECULAR DIAGNOSTICS METHOD 08/18/2024 10:23 AM EST [facility] HCV RNA Quantitative <12 <12 I Unit/mL LAB MOLECULAR DIAGNOSTICS METHOD 08/18/2024 10:23 AM [facility] Comment:HCV RNA detected but below the limit of quantitation. Unable to report quantitative results <12 IU/mL. HCV RNA Quantitative Log <1.08 <1.08 Log IU/mL LAB MOLECULAR DIAGNOSTICS METHOD 08/18/2024 10:23 AM EST [facility] Blood Venous blood specimen / Unknown 08/14/2024 8:45 AM EST 08/14/2024 2:11 PM EST us Sabrina Yang MD LAB BLOOD ORDERABLES Fi nal Result [facility] [address] [place] [address], from Last 3 Months or Most Recently Relevant to Health Maintenance Insurance [address] [place] [address] MEDICARE [place]
== END 2025-06-21 12:50 | disposition home or self-care (01) ==
PROVIDERS: PCP Internal Medicine; Visit Provider Internal Medicine
DX: Z23 Encounter for immunization (principal)

== ENCOUNTER → 2025-06-21 10:47 | Outpatient (BNVA) | payer MEDICARE, MEDICAID, SELFPAY | PROVIDERS: PCP Internal Medicine; Visit Provider Internal Medicine | DX: Z00.01 Encounter for general adult medical examination with abnormal findings (principal); Z86.0100 Personal history of colon polyps, unspecified; R76.89 Other specified abnormal immunological findings in serum; D64.9 Anemia, unspecified; F11.90 Opioid use, unspecified, uncomplicated; Z71.89 Other specified counseling; Z23 Encounter for immunization; Z13.31 Encounter for screening for depression | CPT/HCPCS: 90471; 90656; 96127; 99396 ==

== ENCOUNTER 2025-06-22 07:53 | Outpatient (REF) | payer MEDICARE, MEDICAID, SELFPAY ==
--- NOTE | ~2025-06-22 | CT_ITS ---
CLINICAL HISTORY: M54.9 - Dorsalgia, unspecified CT lumbar spine without contrast Comparison MRI dated 03/24/2025 Findings: No acute fracture. No significant change in moderate anterior wedging of the L5 and posterior wedging of the L4 vertebral bodies with severe mildly irregular disc space narrowing as well up to 10 mm grade 2 spondylolytic L4/L5 anterolisthesis. Chronic [id number] anterior wedging of the L3 vertebral body as before. Benign subcentimeter L2 vertebral body sclerotic focus likely due to a bone island. Grade 1 retrolisthesis at L1/L2 as before. Normal visualized abdominal contents. IMPRESSION: 1. No significant change in chronic (either posttraumatic or post infectious) changes at L4/L5 with associated grade 2 spondylolytic anterolisthesis. 2. No acute fracture. This document has been electronically signed by: Claritza De La Vega MD on 06/22/2025 11:17:18
--- OUTSIDE RECORDS SUMMARY | 2025-06-22 07:57 | XMS_ITS | Encounter Summary ---
Author Organization [employer] Address [address] [place] [address] Care Team Providers Care Benefits Specialist Recruiter Name Role Phone Unavailable Primary Care Provider Unavailabl e Encounter Details Date Type Department Care Team (Late st Contact Info) Description 08/14/2024 Lab Requisition [facility] Main Lab [address] [facility] [place] [address] Sabrina Yang MD [address] [place] [address] Encounter for screening for infections with a [...] ORDERABLES Fi nal Result Performing Organization Address [facility] de Phone Number [facility] [address] [place] [address], [place] [phone] * Hepatitis A antibody IgM (08/14/2024 8:45 [...] from biotin supplements for 72 hours. Sabrina Yagn MD LAB BLOOD ORDERABLES Fi nal Result Performing Organization Address [facility] Co de Phone Number [facility] [address] [place] [address], [place] [phone] * Hepatitis A antibody total with reflex [...] ORDERABLES Fi nal Result Performing Organization Address [facility] de Phone Number [facility] [address] [place] [address], * HIV 1,2 antibody, p24 antigen with [...] ORDERABLES Fi nal Result Performing Organization Address [facility] Co de Phone Number [facility] [address] [place] [address], [place] [phone] * Hepatitis B core antibody, total (08/14/2024 8:45 AM EST) Hep B Core Total Ab Negative Negative LAB CHEMISTRY METHOD 08/14/2024 4:39 PM EST [facility] Blood Venous blood specimen / Unknown 08/14/2024 8:45 AM EST 08/14/2024 2:11 PM EST Sabrina Yang MD LAB BLOOD ORDERABLES Fi nal Result Performing Organization Address [facility]/ZIP Co de Phone Number [facility] [address] [place] [address], * Hepatitis B surface antigen with reflex to confirmation (08/14/2024 8:45 AM EST) Hepatitis B Surface Ag Negative Negative LAB CHEMISTRY METHOD 08/14/2024 4:04 PM EST [facility] Blood Venous blood specimen / Unknown 08/14/2024 8:45 AM EST 08/14/2024 2:11 PM EST [facility] - 08/14/2024 4:04 PM EST Over the counter supplements containing high doses of biotin may interfere with this assay. If interference is suspected, patients shoud be retested after refraining from biotin supplements for 72 hours. Sabrina Yang MD LAB BLOOD ORDERABLES Fi nal Result Performing Organization Address [facility]/ZIP Co de Phone Number [facility] [address] [place] [address], * Hepatitis B surface antibody (08/14/2024 8:45 AM EST) Hepatitis B Surface Ab Negative Negative LAB CHEMISTRY METHOD 08/14/2024 3:54 PM EST [facility] Hepatitis B Surface Ab Quantitative <3.1 mIU/mL LAB CHEMISTRY METHOD 08/14/2024 3:54 PM EST [facility] Blood Venous blood specimen / Unknown 08/14/2024 8:45 AM EST 08/14/2024 2:11 PM EST [facility] - 08/14/2024 3:54 PM EST >=10 mIU/mL is considered to be consistent with immunity. Sabrina Yang MD LAB BLOOD ORDERABLES Fi nal Result [facility] [address] [place] [address], [place] [phone] * Treponema pallidum antibody with reflex to RPR and particle agglutination (08/14/2024 8:45 AM EST) Pathologist [facility] T. Pallidum Antibodies Negative Negative LAB CHEMISTRY METHOD 08/14/2024 4:04 PM EST [facility] Blood Venous blood specimen / Unknown 08/14/2024 8:45 AM EST 08/14/2024 2:11 PM EST Sabrina Yang MD LAB BLOOD ORDERABLES Fi nal Result Performing Organization Address [facility]/ZIP Co de Phone Number [facility] [address] [place] [address], [place] [phone] * (ABNORMAL) Hepatitis C virus quantitative molecular study (08/14/2024 8:45 AM EST) [facility] HCV Qual Interp Detected (A) Not Detected LAB MOLECULAR DIAGNOSTICS METHOD 08/18/2024 10:23 AM EST [facility] HCV RNA Quantitative <12 <12 I Unit/mL LAB MOLECULAR DIAGNOSTICS METHOD 08/18/2024 10:23 AM [facility] Comment:HCV RNA detected [...] nal Result [facility] [address] [place] [address], [place] [phone] * Comprehensive metabolic panel (08/14/2024 8:45 AM EST) Sodium 139 133 - 145 mmol/L LAB CHEMISTRY METHOD 08/14/2024 3:47 PM [facility] Potassium 5.1 3.5 - 5.5 mmol/L LAB CHEMISTRY METHOD 08/14/2024 3:47 PM [facility] Chloride 105 96 - 110 mmol/L LAB CHEMISTRY METHOD 08/14/2024 3:47 PM [facility] CO2 30 21 - 32 mmol/L LAB CHEMISTRY METHOD 08/14/2024 3:47 PM [facility] Anion Gap 4 3 - 11 LAB CHEMISTRY METHOD 08/14/2024 3:47 PM [facility] Glucose 92 70 - 100 mg/dL LAB CHEMISTRY METHOD 08/14/2024 3:47 PM [facility] BUN 20 5 - 25 mg/dL LAB CHEMISTRY METHOD 08/14/2024 3:47 PM [facility] Creatinine 0.80 0.70 - 1.30 mg/dL LAB CHEMISTRY METHOD 08/14/2024 3:47 PM [facility] eGFR 106 >=60 mL/min/1. 73m2 LAB CHEMISTRY METHOD 08/14/2024 3:47 PM [facility] Comment:Calculation based on the Chronic Kidney Disease Epidemiology Collaboration (CKD-EPI) equation refit without adjustment for race. BUN/Creatinine Ratio 25.0 LAB CHEMISTRY METHOD 08/14/2024 3:47 PM [facility] Calcium 9.2 8.5 - 10.5 mg/dL LAB CHEMISTRY METHOD 08/14/2024 3:47 PM [facility] AST (SGOT) 25 10 - 42 unit/L LAB CHEMISTRY METHOD 08/14/2024 3:47 PM [facility] ALT (SGPT) 21 10 - 60 unit/L LAB CHEMISTRY METHOD 08/14/2024 3:47 PM [facility] Alkaline Phosphatase 90 42 - 121 unit/L LAB CHEMISTRY METHOD 08/14/2024 3:47 PM [facility] Total Protein 7.6 6.0 - 8.0 g/dL LAB CHEMISTRY METHOD 08/14/2024 3:47 PM [facility] Albumin 3.7 3.2 - 5.0 g/dL LAB CHEMISTRY METHOD 08/14/2024 3:47 PM [facility] Total Bilirubin 0.2 0.0 - 1.4 mg/dL LAB CHEMISTRY METHOD 08/14/2024 3:47 PM [facility] Blood Venous blood specimen / Unknown 08/14/2024 8:45 AM EST 08/14/2024 2:11 PM EST Sabrina Yang MD LAB BLOOD ORDERABLES Fi nal Result [facility] [address] [place] [address], * Complete blood count (08/14/2024 8:45 AM EST) WBC 6.6 4.8 - 10.8 K/mcL LAB HEMETOLOGY METHOD 08/14/2024 2:17 PM [facility] RBC 4.80 4.50 - 5.50 M/mcL LAB HEMETOLOGY METHOD 08/14/2024 2:17 PM [facility] Hemoglobin 14.0 13.5 - 17.5 g/dL LAB HEMETOLOGY METHOD 08/14/2024 2:17 PM [facility] Hematocrit 42.5 42.0 - 54.0 % LAB HEMETOLOGY METHOD 08/14/2024 2:17 PM [facility] MCV 88.9 79.0 - 98.0 FL LAB HEMETOLOGY METHOD 08/14/2024 2:17 PM EST [facility] MCH 29.3 27.0 - 32.0 pcg LAB HEMETOLOGY METHOD 08/14/2024 2:17 PM [facility] MCHC 32.9 32.0 - 37.0 g/dL LAB HEMETOLOGY METHOD 08/14/2024 2:17 PM EST [facility] RDW 12.3 11.0 - 15.0 % LAB HEMETOLOGY METHOD 08/14/2024 2:17 PM EST [facility] Platelets 216 130 - 400 K/mcL LAB HEMETOLOGY METHOD 08/14/2024 2:17 PM [facility] MPV 9.4 7.0 - 11.0 FL LAB HEMETOLOGY METHOD 08/14/2024 2:17 PM EST [facility] NRBC 0.0 <1.0 % LAB HEMETOLOGY METHOD 08/14/2024 2:17 PM [facility] NRBC Absolute 0.00 <0.10 K/mcL LAB HEMETOLOGY METHOD 08/14/2024 2:17 PM [facility] Blood Venous blood specimen / Unknown 08/14/2024 8:45 AM EST 08/14/2024 2:11 PM EST us Sabrina Yang MD LAB BLOOD ORDERABLES Fi nal Result [facility] [address] [place] [address], documented in this encounter Visit Diagnoses Diagnosis Encounter for screening for infections with a predominantly sexual mode of transmission Opioid dependence, uncomplicated (CMS/HCC V24, CMS/HCC V28) documented in this encounter
--- OUTSIDE RECORDS SUMMARY | 2025-06-22 07:57 | XMS_ITS | Clinical Summary ---
Author Organization 299 [facility] Address [address] [place] [address] Phone Care Team Providers Care Glass Cutting Machine Operator Name Role Phone Unavailable Primary Care Provider [...] to differentiation (08/14/2024 8:45 AM EST) Pathologist [facility] HIV Combo AB/AG Negative Negative LAB CHEMISTRY METHOD 08/14/2024 4:33 PM EST [facility] Blood Venous blood specimen / Unknown 08/14/2024 8:45 AM EST 08/14/2024 2:11 PM EST Narrative [facility] - 08/14/2024 4:33 [...] MD LAB BLOOD ORDERABLES Fi nal Result [facility] [address] [place] [address], * (ABNORMAL) Hepatitis C virus quantitative molecular study (08/14/2024 8:45 AM EST) HCV Qual Interp Detected (A) Not Detected LAB MOLECULAR DIAGNOSTICS METHOD 08/18/2024 10:23 AM EST [facility] HCV RNA Quantitative <12 <12 I Unit/mL LAB MOLECULAR DIAGNOSTICS METHOD 08/18/2024 10:23 AM [facility] Comment:HCV RNA detected but below the limit of quantitation. Unable to report quantitative results <12 IU/mL. HCV RNA Quantitative Log <1.08 <1.08 Log IU/mL LAB MOLECULAR DIAGNOSTICS METHOD 08/18/2024 10:23 AM EST [facility] Blood Venous blood specimen / Unknown 08/14/2024 8:45 AM EST 08/14/2024 2:11 PM EST us Sabrina Yang MD LAB BLOOD ORDERABLES Fi nal Result [facility] [address] [place] [address], from Last 3 Months or Most Recently Relevant to Health Maintenance Insurance [address] [place] [address] MEDICARE [place]ICAID - [place]
== END 2025-06-22 07:54 | disposition home or self-care (01) ==
LOC: HO.CT 07:53
PROVIDERS: PCP Internal Medicine; Visit Provider Physician Assistant
DX: M54.9 Dorsalgia, unspecified (principal)
CPT/HCPCS: 72131

== ENCOUNTER 2025-07-05 13:26 | Outpatient (AMB) | payer MEDICARE, MEDICAID, SELFPAY ==
--- NOTE | 2025-07-05 13:32 | A.SPINEOV_ITS ---
Intake Visit Reasons: questions Intake Note: Mr. Mazariegos is here today with questions about surgery. Web Software Engineer Required: No Allergies No Known Allergies Allergy (Verified 06/21/25 11:47) Assessment & Plan Assessment & Plan (1) Back pain: Code(s): M54.9 - Dorsalgia, unspecified Category: Medical Plan Mr Mazariegos is here in follow-up. I reviewed his CT scan in his MRI done at [place] with Dr. Landeros. If his back pain and leg pain is so severe, the only treatment would be to do a corpectomy of L4 and L5 with removal of the disc at L3-4 and L5-S1 with a large cage implant. Unfortunately Dr. Landeros believes this is something handled better at a large academic center with the multidisciplinary team. Right now it seems as though his pain is reasonably manageable. Not that he does not have severe pain, however but he is still functional and moving around. We talked about the fact that a surgery like this even done at an academic center with optimum results, would be a lengthy lengthy recovery and would not take away all of his pain. The patient is more inclined at this time to just let things be and now that he understands the situation a little bit better seeing the images himself, he will call us down the road if something changes or if he needs a referral to an academic center. Total amount of time spent in this visit was 20 minutes in discussion of symptoms, lumbar CT and MRI imaging results and subsequent plan of care Sinan Landeros MD,PhD [facility] Coding Level of Care Code Est Pt Level 3 (49389) Diagnoses Back pain M54.9
--- OUTSIDE RECORDS SUMMARY | 2025-07-05 15:32 | XMS_ITS | Encounter Summary ---
Author Organization [employer] Address [address] [place] [address] Care Team Providers Care Home Care Manager Name Role Phone Unavailable Primary Care Provider Unavailabl e Encounter Details Date Type Department Care Team (Late st Contact Info) Description 08/14/2024 Lab Requisition [facility] - Main Lab [address] [facility] [place] [address] Sabrina Yang MD [address] [place] [address] Encounter for screening for infections with a [...] LAB CHEMISTRY METHOD 08/18/2024 2:00 PM EST [facility] AST (SGOT) 25 10 - 42 unit/L LAB CHEMISTRY METHOD 08/18/2024 2:00 PM EST [facility] Total Bilirubin 0.2 0.0 - 1.4 mg/dL LAB CHEMISTRY METHOD 08/18/2024 2:00 PM EST [facility] Blood Venous blood specimen / Unknown 08/14/2024 8:45 AM EST 08/14/2024 2:11 PM EST Sabrina Yang MD LAB BLOOD ORDERABLES Fi nal Result Performing Organization Address [facility] de Phone Number [facility] [address] [place] [address], [place] [phone] * Hepatitis A antibody IgM (08/14/2024 8:45 AM EST) Hepatitis A Antibody IgM Negative Negative LAB CHEMISTRY METHOD 08/14/2024 4:40 PM EST [facility] Blood Venous blood specimen / Unknown 08/14/2024 8:45 AM EST 08/14/2024 2:11 PM EST Narrative [facility] - 08/14/2024 4:40 PM EST Over the counter supplements containing high doses of biotin may interfere with this assay. If interference is suspected, patients shoud be retested after refraining from biotin supplements for 72 hours. Sabrina Yang MD LAB BLOOD ORDERABLES Fi nal Result Performing Organization Address [facility] Co de Phone Number [facility] [address] [place] [address], [place] [phone] * Hepatitis A antibody total with reflex IgM (08/14/2024 8:45 AM EST) Hep A Total Ab Negative Negative LAB CHEMISTRY METHOD 08/14/2024 4:38 PM EST [facility] Blood Venous blood specimen / Unknown 08/14/2024 8:45 AM EST 08/14/2024 2:11 PM EST Narrative [facility] - 08/14/2024 4:38 PM EST Over the counter supplements containing high doses of biotin may interfere with this assay. If interference is suspected, patients shoud be retested after refraining from biotin supplements for 72 hours. Sabrina Yang MD LAB BLOOD ORDERABLES Fi nal Result Performing Organization Address [facility] de Phone Number [facility] [address] [place] [address], * HIV 1,2 antibody, p24 antigen with reflex to differentiation (08/14/2024 8:45 AM EST) HIV Combo AB/AG Negative Negative LAB CHEMISTRY METHOD 08/14/2024 4:33 PM EST [facility] Blood Venous blood specimen / Unknown 08/14/2024 8:45 AM EST 08/14/2024 2:11 PM EST Narrative [facility] - 08/14/2024 4:33 PM [...] ORDERABLES Fi nal Result Performing Organization Address [facility] Co de Phone Number [facility] [address] [place] [address], [place] [phone] * Hepatitis B core antibody, total (08/14/2024 8:45 AM EST) Hep B Core Total Ab Negative Negative LAB CHEMISTRY METHOD 08/14/2024 4:39 PM EST [facility] Blood Venous blood specimen / Unknown 08/14/2024 8:45 AM EST 08/14/2024 2:11 PM EST Sabrina Yang MD LAB BLOOD ORDERABLES Fi nal Result Performing Organization Address [facility]/ZIP Co de Phone Number [facility] [address] [place] [address], * Hepatitis B surface antigen with reflex to confirmation (08/14/2024 8:45 AM EST) Hepatitis B Surface Ag Negative Negative LAB CHEMISTRY METHOD 08/14/2024 4:04 PM EST [facility] Blood Venous blood specimen [...] ORDERABLES Fi nal Result Performing Organization Address [facility]/ZIP Co de Phone Number [facility] [address] [place] [address], * Hepatitis B surface antibody (08/14/2024 8:45 AM EST) Hepatitis B Surface Ab Negative Negative LAB CHEMISTRY METHOD 08/14/2024 3:54 PM EST [facility] Hepatitis B Surface Ab Quantitative <3.1 mIU/mL LAB CHEMISTRY METHOD 08/14/2024 3:54 PM EST [facility] Blood Venous blood specimen / Unknown 08/14/2024 8:45 AM EST 08/14/2024 2:11 PM EST [facility] - 08/14/2024 3:54 PM EST >=10 mIU/mL is considered to be consistent with immunity. Sabrina Yang MD LAB BLOOD ORDERABLES Fi nal Result [facility] [address] [place] [address], [place] [phone] * Treponema pallidum antibody with reflex to RPR and particle agglutination (08/14/2024 8:45 AM EST) Pathologist [facility] T. Pallidum Antibodies Negative Negative LAB CHEMISTRY METHOD 08/14/2024 4:04 PM EST [facility] Blood Venous blood specimen / Unknown 08/14/2024 8:45 AM EST 08/14/2024 2:11 PM EST Sabrina Yang MD LAB BLOOD ORDERABLES Fi nal Result Performing Organization Address [facility]/ZIP Co de Phone Number [facility] [address] [place] [address], [place] [phone] * (ABNORMAL) Hepatitis C virus quantitative molecular study (08/14/2024 8:45 AM EST) [facility] HCV Qual Interp Detected (A) Not Detected LAB MOLECULAR DIAGNOSTICS METHOD 08/18/2024 10:23 AM EST [facility] HCV RNA Quantitative <12 <12 I Unit/mL LAB MOLECULAR DIAGNOSTICS METHOD 08/18/2024 10:23 AM [facility] Comment:HCV RNA detected but below the limit of quantitation. Unable to report quantitative results <12 IU/mL. HCV RNA Quantitative Log <1.08 <1.08 Log IU/mL LAB MOLECULAR DIAGNOSTICS METHOD 08/18/2024 10:23 AM EST [facility] Blood Venous blood specimen / Unknown 08/14/2024 8:45 AM EST 08/14/2024 2:11 PM EST us Sabrina Yang MD LAB BLOOD ORDERABLES Fi nal Result [facility] [address] [place] [address], [place] [phone] * Comprehensive metabolic panel (08/14/2024 8:45 AM EST) Sodium 139 133 - 145 mmol/L LAB CHEMISTRY METHOD 08/14/2024 3:47 PM [facility] Potassium 5.1 3.5 - 5.5 mmol/L LAB CHEMISTRY METHOD 08/14/2024 3:47 PM [facility] Chloride 105 96 - 110 mmol/L LAB CHEMISTRY METHOD 08/14/2024 3:47 PM [facility] CO2 30 21 - 32 mmol/L LAB CHEMISTRY METHOD 08/14/2024 3:47 PM [facility] Anion Gap 4 3 - 11 LAB CHEMISTRY METHOD 08/14/2024 3:47 PM [facility] Glucose 92 70 - 100 mg/dL LAB CHEMISTRY METHOD 08/14/2024 3:47 PM [facility] BUN 20 5 - 25 mg/dL LAB CHEMISTRY METHOD 08/14/2024 3:47 PM [facility] Creatinine 0.80 0.70 - 1.30 mg/dL LAB CHEMISTRY METHOD 08/14/2024 3:47 PM [facility] eGFR 106 >=60 mL/min/1. 73m2 LAB CHEMISTRY METHOD 08/14/2024 3:47 PM [facility] Comment:Calculation based on the Chronic Kidney Disease Epidemiology Collaboration (CKD-EPI) equation refit without adjustment for race. BUN/Creatinine Ratio 25.0 LAB CHEMISTRY METHOD 08/14/2024 3:47 PM [facility] Calcium 9.2 8.5 - 10.5 mg/dL LAB CHEMISTRY METHOD 08/14/2024 3:47 PM [facility] AST (SGOT) 25 10 - 42 unit/L LAB CHEMISTRY METHOD 08/14/2024 3:47 PM [facility] ALT (SGPT) 21 10 - 60 unit/L LAB CHEMISTRY METHOD 08/14/2024 3:47 PM [facility] Alkaline Phosphatase 90 42 - 121 unit/L LAB CHEMISTRY METHOD 08/14/2024 3:47 PM [facility] Total Protein 7.6 6.0 - 8.0 g/dL LAB CHEMISTRY METHOD 08/14/2024 3:47 PM [facility] Albumin 3.7 3.2 - 5.0 g/dL LAB CHEMISTRY METHOD 08/14/2024 3:47 PM [facility] Total Bilirubin 0.2 0.0 - 1.4 mg/dL LAB CHEMISTRY METHOD 08/14/2024 3:47 PM [facility] Blood Venous blood specimen / Unknown 08/14/2024 8:45 AM EST 08/14/2024 2:11 PM EST Sabrina Yang MD LAB BLOOD ORDERABLES Fi nal Result [facility] [address] [place] [address], * Complete blood count (08/14/2024 8:45 AM EST) WBC 6.6 4.8 - 10.8 K/mcL LAB HEMETOLOGY METHOD 08/14/2024 2:17 PM [facility] RBC 4.80 4.50 - 5.50 M/mcL LAB HEMETOLOGY METHOD 08/14/2024 2:17 PM [facility] Hemoglobin 14.0 13.5 - 17.5 g/dL LAB HEMETOLOGY METHOD 08/14/2024 2:17 PM [facility] Hematocrit 42.5 42.0 - 54.0 % LAB HEMETOLOGY METHOD 08/14/2024 2:17 PM [facility] MCV 88.9 79.0 - 98.0 FL LAB HEMETOLOGY METHOD 08/14/2024 2:17 PM EST [facility] MCH 29.3 27.0 - 32.0 pcg LAB HEMETOLOGY METHOD 08/14/2024 2:17 PM [facility] MCHC 32.9 32.0 - 37.0 g/dL LAB HEMETOLOGY METHOD 08/14/2024 2:17 PM EST [facility] RDW 12.3 11.0 - 15.0 % LAB HEMETOLOGY METHOD 08/14/2024 2:17 PM EST [facility] Platelets 216 130 - 400 K/mcL LAB HEMETOLOGY METHOD 08/14/2024 2:17 PM [facility] MPV 9.4 7.0 - 11.0 FL LAB HEMETOLOGY METHOD 08/14/2024 2:17 PM EST [facility] NRBC 0.0 <1.0 % LAB HEMETOLOGY METHOD 08/14/2024 2:17 PM [facility] NRBC Absolute 0.00 <0.10 K/mcL LAB HEMETOLOGY METHOD 08/14/2024 2:17 PM [facility] Blood Venous blood specimen / Unknown 08/14/2024 8:45 AM EST 08/14/2024 2:11 PM EST us Sabrina Yang MD LAB BLOOD ORDERABLES Fi nal Result [facility] [address] [place] [address], documented in this encounter Visit Diagnoses Diagnosis Encounter for screening for infections with a predominantly sexual mode of transmission Opioid dependence, uncomplicated (CMS/HCC V24, CMS/HCC V28) documented in this encounter
--- OUTSIDE RECORDS SUMMARY | 2025-07-05 15:32 | XMS_ITS | Clinical Summary ---
Author Organization 299 [facility] Address [address] [place] [address] Phone Care Team Providers Care Sales Agent Pest Control Service Name Role Phone Unavailable Primary Care Provider [...] Result [facility] [address] [place] [address], * (ABNORMAL) Hepatitis C virus quantitative molecular study (08/14/2024 8:45 AM EST) HCV Qual Interp Detected (A) Not Detected LAB MOLECULAR DIAGNOSTICS METHOD 08/18/2024 10:23 AM EST [facility] HCV RNA Quantitative <12 <12 I Unit/mL LAB MOLECULAR DIAGNOSTICS METHOD 08/18/2024 10:23 AM [facility] Comment:HCV RNA detected but [...] Result [facility] [address] [place] [address], from Last 3 Months or Most Recently Relevant to Health Maintenance Insurance [address] [place] [address] MEDICARE [place]ID [place]
== END 2025-07-05 13:43 | disposition home or self-care (01) ==
LOC: HO.HNS 13:27
PROVIDERS: PCP Internal Medicine; Visit Provider Physician Assistant
DX: M54.9 Dorsalgia, unspecified (principal)
CPT/HCPCS: 99213

== ENCOUNTER → 2025-07-05 13:26 | Outpatient (BNVA) | payer MEDICARE, MEDICAID, SELFPAY | PROVIDERS: PCP Internal Medicine; Visit Provider Physician Assistant | DX: M54.9 Dorsalgia, unspecified (principal) | CPT/HCPCS: 99212 ==